=== PATIENT | male | born 1945 | race Caucasian/White ===

== ENCOUNTER 2018-12-10 10:16 | Outpatient (REF) | payer MEDICARE, OTHER, SELFPAY ==
[2018-12-10 13:36] LABS: Anion Gap 8.2 mmol/L (3-11); BUN 14 mg/dL (7-18); CO2 29.8 mmol/L (21.0-32.0); CREATININE 1.03 mg/dL (0.70-1.30); Calcium 9.2 mg/dL (8.5-10.1); Chloride 103 mmol/L (98-107); Glucose 123 mg/dL (70-100); Potassium 4.4 mmol/L (3.5-5.1); Sodium 141 mmol/L (136-145)
== END 2018-12-10 10:36 ==
LOC: NCHCN 10:16
PROVIDERS: PCP Internal Medicine; Visit Provider Internal Medicine
DX: I10 Essential (primary) hypertension (principal)
CPT/HCPCS: 80048

== ENCOUNTER 2020-02-08 10:42 | Outpatient (REF) | payer MEDICARE, OTHER, SELFPAY ==
[2020-02-08 21:14] LABS: BUN 14 mg/dL (7-18); CREATININE 0.92 mg/dL (0.70-1.30); Calcium 9.4 mg/dL (8.5-10.1); Calculated LDL 170 mg/dL (<100); Chloride 105 mmol/L (98-107); Cholesterol 246 mg/dL (<200); Glucose 120 mg/dL (74-106); HDL Cholesterol 54 mg/dL (40-60); Potassium 3.9 mmol/L (3.5-5.1); Sodium 142 mmol/L (136-145); Triglyceride 111 mg/dL (<150)
[2020-02-08 21:20] LABS: Hemoglobin A1C 5.7 % (3.8-5.6)
== END 2020-02-08 11:02 ==
LOC: NCHCN 10:42
PROVIDERS: PCP Internal Medicine; Visit Provider Internal Medicine
DX: I10 Essential (primary) hypertension (principal); E78.5 Hyperlipidemia, unspecified; R73.9 Hyperglycemia, unspecified
CPT/HCPCS: 80048; 80061; 83036

== ENCOUNTER → 2020-06-13 08:53 | Outpatient (BNVA) | payer MEDICARE, OTHER, SELFPAY | PROVIDERS: PCP Internal Medicine; Referring Provider Internal Medicine; Visit Provider Surgery | DX: Z12.11 Encounter for screening for malignant neoplasm of colon (principal); Z86.010 Personal history of colon polyps ==

== ENCOUNTER 2020-06-22 02:20 | Outpatient (CLI) | payer MEDICARE, OTHER, SELFPAY ==
[2020-06-23 14:49] LABS: COVID-19 RT-PCR UVMMC Result Negative (Negative)
== END 2020-06-22 02:40 ==
PROVIDERS: PCP Internal Medicine; Visit Provider Surgery
DX: Z11.59 Encounter for screening for other viral diseases (principal); Z01.818 Encounter for other preprocedural examination
CPT/HCPCS: U0003

== ENCOUNTER 2020-06-26 09:06 | Day surgery (SDC) | payer MEDICARE, OTHER, SELFPAY ==
--- NOTE | 2020-06-26 07:04 | W.COLOREPORT ---
Date of service: 06/26/20 Time of Service: 10: Colonoscopy Report Date of procedure: 06/26/20 Pre-op diagnosis general: Hx of polyps Post-op diagnosis procedure note: same (polyps and kern-diverticulosis and internal hemorrhoids) Procedure: Colonoscopy with polypectomy by forceps Surgeon: Samanta Aguilar Anesthesia proc note operative: other (General/ASA 3/Kyler Garza CRNA) Estimated blood loss (mL): 5 Pathology: other (cecal polyp, ascending polyp, transverse polyps x2, descending polyp) Complications: None Disposition: same day Indications: Mr. iSerra is here today to discuss another colonoscopy. His last colonoscopy was in 2017 and he had multiple tubular adenomas and hyperplastic polyps. He has not had any changes in his health. He has done very well since after his valve replacement in 2016. He denies any changes in bowel habits. He has not had any chest pain or shortness of breath. The colonoscopy was described in detail as well as the risks benefits and complications. We also discussed Covid testing prior to the procedure and quarantine requirements. Prep: Miralax/Dulcolax Procedure Start Time: :20 Procedure End Time: 10:45 Retraction Time: 24 minutes Findings: multiple sessile polyps and kern-diverticulosis. R>L Procedure Description: After informed consent was obtained the patient was taken to the procedure room and placed in a left decubitous position. Monitors were applied and a time out was done. The patients name, date of , procedure, allergies to medications and metal in their body was reviewed. The patient was then sedated. Once sedated and comfortable a rectal exam was done. External exam was normal. Internal exam revealed a normal sphincter tone and no palpable masses. The prostate felt smooth. Also noted was a large skin tag on the posterior portion of his right thigh. The scope was then introduced and retro-flexed. Grade 2 internal hemorrhoids were identified. The scope was then advanced to the cecum without difficulty. The ileocecal valve and appendiceal orifice were identified. The prep was adequate. The scope was then slowly retracted over 24 minutes back into the rectum. Polyps were removed with cold forceps in the cecum, ascending colon, transverse colon x2, and descending colon. There was also kern-diverticulosis noted worse on the right side. The scope was removed and the patient was woken up and taken back to Same day surgery in stable condition. The patient tolerated the procedure well and there were no immediate complications. Follow up: The patient should follow up in 3-5 years unless they develop changes in bowel habits or other new gastrointestinal complaints.
--- NOTE | 2020-06-26 07:05 | PDOC.DSDIS_ITS ---
Discharge Plan Disposition Patient Disposition: HOME Condition: Good Discharge Details Reason For Visit: Colonoscopy Attending Provider: Samanta Aguilar Primary Care Provider: Juan C Lee Home Meds and New Rx's Prescriptions: Continued docusate sodium 50 mg capsule 50 mg PO DAILY RF: 0 metoprolol tartrate 50 MG tablet 50 mg PO BID RF: 0 aspirin [Aspirin Low-Strength] 81 MG tablet,chewable 81 mg PO DAILY RF: 0 ibuprofen 100 MG/5 ML suspension 400 mg PO Q6H PRN RF: 0 [id number] serr [Osteo Bi-Flex (5-Loxin)] 1 EACH tablet 1 ea PO DAILY RF: 0 atorvastatin 20 mg tablet 20 mg PO DAILY RF: 0 Discontinued bisacodyl [Dulcolax (bisacodyl)] 5 mg tablet,delayed release (DR/EC) 5 mg PO ONCE Qty: 4 RF: 0 polyethylene glycol 3350 17 gram powder in packet 255 g PO DAILY Qty: 15 RF: 0 Discharge Instructions Instructions: Colorectal Polyps (DC), Diverticulosis (DC) Additional Instructions: Findings: 5 polyps Diverticulosis Follow up: 3-5 years Please call if you develop: fevers >101.5 Nausea or Vomiting Abdominal pain that is not transient DAY SURGERY UNIT POST ENDOSCOPY INSTRUCTIONS 1. Because there will be medication in your system for the next 24 hours, you may feel a little sleepy. Your coordination will be affected. Therefore: a. Do not drive or operate dangerous equipment for 24 hours. b. Do not drink alcohol beverages for 24 hours (not even beer). c. Plan to go home and rest for the day. 2. Generally there are no restrictions on your activity after a day or so has gone by, but you may feel a bit fatigued for a few days. 3 After you arrive home you may have a light meal and return to a normal diet as you can tolerate it without feeling sick to your stomach. 4. After surgery, you may feel pain or discomfort. This should be only tra nsient, but if it persists please contact your doctor. 5. If there are any questions regarding the findings of your procedure, please feel free to contact your doctor. 6. If you are unable to contact your doctor with a problem, contact the hospital at [phone]. 7. Continue all your regular medications unless directed otherwise. I understand the above instructions and have no questions. Signature of Patient or Responsible Adult Escort Date/Time Name of Responsible Adult Escort Signature of Nurse Date/Time Activity:: Activity as Tolerated Diet:: high fiber diet Discharge Orders Discharge Orders: Discharge Order (Routine); Ordered 06/26/20 Ordered By: Samanta Aguilar
[2020-06-26 09:28] VITALS: BP 138/89; PULSE 108; RESP 16; TEMP 36.4; O2SAT 98
[2020-06-26] MEDS: Lactated Ringers 1,000 ML 80 ML IV (09:47)
--- NOTE | 2020-06-26 10:26 | BOWEL_PTH ---
PATIENT: Jorge Luis Sierra LOC: [facility] U#:[id number] AGE/SX: 74/M ROOM: RE06/26/[address]: Samanta Aguilar MD : [id number] BED: DIS: 06/26/2020 SPEC #: [id number] RECD: 06/26/20 12:55 STATUS: KARLA REQ #: [id number] SUMAN: 06/26/20 10:[address]: Samanta Aguilar DEPT: Surgical Specimen RECD BY: Jenna Mcclain ENTERED: 06/26/20 12:56 SP TYPE: Bowel OTHR DR: Juan C Lee Tissues: 1 - BIOPSY BOWEL 2 - BIOPSY BOWEL 3 - BIOPSY BOWEL 4 - BIOPSY BOWEL Procedures: GROSS AND MICRO LEVEL 4 Comments: [id number]
[2020-06-26] MEDS: Ondansetron 4 MG/2 ML VIAL IVP (11:08)
[2020-06-26] MEDS: Normal Saline Flush 10 ML SYR IV (11:09)
[2020-06-26 11:46] VITALS: BP 138/78; PULSE 93; RESP 16; TEMP 36.9; O2SAT 94
== END 2020-06-26 12:06 | disposition home or self-care (01) ==
LOC: SUR 09:07
PROVIDERS: PCP Internal Medicine; Visit Provider Surgery
PROC: 0DJD8ZZ Inspection of Lower Intestinal Tract, Via Natural or Artificial Opening Endoscopic (ICD-10-PCS; CPT 45378; principal; 2020-06-26 10:30)
DX: Z12.11 Encounter for screening for malignant neoplasm of colon (principal); Z86.010 Personal history of colon polyps; D12.0 Benign neoplasm of cecum; D12.2 Benign neoplasm of ascending colon; D12.3 Benign neoplasm of transverse colon; K63.89 Other specified diseases of intestine; K57.30 Diverticulosis of large intestine without perforation or abscess without bleeding; K64.1 Second degree hemorrhoids; Z87.19 Personal history of other diseases of the digestive system; I10 Essential (primary) hypertension
CPT/HCPCS: 45380; 88305; J2001; J2405

== ENCOUNTER 2021-06-12 09:14 | Outpatient (REF) | payer MEDICARE, OTHER, SELFPAY ==
[2021-06-12 14:47] LABS: HCT 46.2 % (40.0-50.0); HGB 15.5 g/dL (13.5-17.5); MCHC 33.5 % (32.0-36.0); MCV 98.5 fL (80-95); MPV 9.8 fL (8.0-11.0); Platelet Count 175 10^3/uL (130-400); RBC 4.69 10^6/uL (4.36-5.78); RDW 11.6 % (11.8-14.1); RDW-SD 41.9 fL; WBC 4.72 10^3/uL (4.4-10.8)
[2021-06-12 15:08] LABS: ALT 46 U/L (16-63); AST 40 U/L (15-37); Alkaline Phosphatase 45 U/L (46-116); Anion Gap 10.2 mmol/L (3-11); BUN 12 mg/dL (7-18); Bilirubin, Total 0.8 mg/dL (0.2-1.0); CO2 28.8 mmol/L (21.0-32.0); CREATININE 0.8 mg/dL (0.70-1.30); Calcium 9.3 mg/dL (8.5-10.1); Calculated LDL 143 mg/dL (<100); Chloride 104 mmol/L (98-107); Cholesterol 230 mg/dL (<200); Glucose 107 mg/dL (74-106); HDL Cholesterol 71 mg/dL (40-60); Potassium 4.4 mmol/L (3.5-5.1); Sodium 143 mmol/L (136-145); TSH (W/Ref FT4) 0.55 uIU/mL (0.36-3.74); Total Protein 7.2 g/dL (6.4-8.2); Triglyceride 83 mg/dL (<150)
== END 2021-06-12 09:15 | disposition home or self-care (01) ==
LOC: NCHCN 09:14
PROVIDERS: PCP Internal Medicine; Visit Provider Family Medicine
DX: I10 Essential (primary) hypertension (principal); R73.03 Prediabetes; Z00.00 Encounter for general adult medical examination without abnormal findings
CPT/HCPCS: 80053; 80061; 85027; 84443

== ENCOUNTER 2021-12-16 09:15 | Emergency (ER) | payer MEDICARE, OTHER, SELFPAY ==
[2021-12-16 09:14] VITALS: BP 156/88; PULSE 94; RESP 16; TEMP 36.7; O2SAT 98
--- NOTE | 2021-12-16 09:30 | DI.CT_ITS ---
Exam(s) CT HEAD WO EXAM: CT HEAD WO CLINICAL HISTORY: fall injury to right forehead. TECHNIQUE: Imaging Protocol: Axial computed tomography images with coronal and sagittal reformatted images were created and reviewed COMPARISON: No exams were available for comparison FINDINGS: Ventricles and Extra axial spaces: Normal in size and morphology for the patient's age. Hemorrhage: None. 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 Old infarct right frontal and parietal regions. No acute infarcts. Atrophy. White matter changes consistent with small vessel disease. Midline shift: None. Brainstem/Cerebellum: Normal. Calvarium: Normal. Visualized Paranasal sinuses/Mastoids: Clear. IMPRESSION: Old infarcts. No acute abnormality. RADIATION DOSE DELIVERED: 754.69mGy.cm Total DLP 754.69mGy.cm Total DLP DATA REPOSITORY: All CT scans at this facility are submitted to the National Radiology Data Registry (NRDR) Dose Index Registry (DIR) with the [employer] (ACR). RADIATION OPTIMIZATION: All CT scans at this facility use at least one of these dose optimization te chniques: automated exposure control; mA and/or kV adjustment per patient size (includes targeted exa ms where dose is matched to clinical indication); or iterative reconstruction.
--- NOTE | 2021-12-16 09:30 | DI.RAD_ITS ---
Exam(s) XR KNEE RT 4V AP,LAT,BRICE,PAT EXAM: XR KNEE RT 4V AP,LAT,BRICE,PAT CLINICAL HISTORY: fall. TECHNIQUE: 2D digital imaging was performed. Three views. COMPARISON: No exams were available for comparison FINDINGS: BONES: Acute fracture extending mainly transversely through the patella. There is separation of fra cture fragments extending to the articular surface. No bony destructive lesion is seen. JOINTS: Degenerative changes and chondrocalcinosis peer the knee is normally aligned. No joint effusi on is seen. SOFT TISSUE: Marked anterior soft tissue swelling. Joint effusion. Vascular calcifications. IMPRESSION: Acute patellar fracture with comminution and separation of fragments. DATA REPOSITORY: RADIATION DOSE DELIVERED:
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
--- NOTE | 2021-12-16 10:49 | DI.VRAD_ITS ---
PROCEDURE INFORMATION: Exam: XR Left Knee Exam date and time: 12/16/2021 10:20 AM Age: 76 years old Clinical indication: Injury or trauma; Fall; Fracture, traumatic; Closed fracture; Patella or knee; Right TECHNIQUE: Imaging protocol: XR Left knee. Views: 4 or more views. COMPARISON: No relevant images were readily available for comparison purposes. FINDINGS: Bones/joints: At least mild CPPD at the knee. comminuted acute and moderately displaced/distracted patellar fracture. at least small suprapatellar effusion. Soft tissues: soft tissue swelling. Vasculature: vascular calcifications. IMPRESSION: Acute patellar fracture. Dictated and Authenticated by: Juan C Young MD. Ordering:JAVIER Ambrose MD
--- NOTE | 2021-12-16 11:18 | DI.VRAD_ITS ---
PROCEDURE INFORMATION: Exam: CT Head Without Contrast Exam date and time: 12/16/2021 10:54 AM Age: 76 years old Clinical indication: Injury or trauma; Fall; Blunt trauma (contusions or hematomas) TECHNIQUE: Imaging protocol: Computed tomography of the head without contrast. COMPARISON: No relevant images were readily available for comparison purposes. FINDINGS: Brain: Right hemispheric encephalomalacia. Moderate cerebral volume loss. moderate burden nonspecific white matter disease likely least partly related to chronic microvascular risk factors. No acute intracranial hemorrhage. No convincing evidence of acute infarct. Cerebral ventricles: ventricular expansion likely related to cerebral volume loss. Paranasal sinuses: Paranasal sinuses appear clear. Mastoid air cells: mastoid air cells clear. Orbital cavities: Globes and orbits appear intact. Bones/joints: No acute skull fracture Soft tissues: scalp hematoma right frontal convexity. IMPRESSION: No acute intracranial findings. Small scalp hematoma right frontal convexity. Dictated and Authenticated by: Juan C Young MD. Ordering:JAVIER Ambrose MD
[2021-12-16 11:33] VITALS: BP 150/60; PULSE 80; TEMP 36.4; O2SAT 95
--- NOTE | 2021-12-16 11:45 | DI.CT_ITS ---
Exam(s) CT LOWER EXTREMITY RT WO EXAM: CT LOWER EXTREMITY RT WO CLINICAL HISTORY: Further evaluation of patellar fracture. TECHNIQUE: Imaging Protocol: Axial computed tomography images with coronal and sagittal reformatted images were created and reviewed. CONTRAST MATERIAL: Intravenous: Omnipaque 350 Contrast volume:structured data in ml Contrast route:IV - COMPARISON: CR,XR XR KNEE RT 4V AP,LAT,BRICE,PAT from 12/16/2021 FINDINGS: There is a comminuted fracture of the patella with main transverse component through the midportion o f the patella and an oblique vertically oriented component through the lower pole. Separation of fra cture fragments greatest 9-10 millimeters. There is a large joint effusion. There is a tiny intra-a rticular bony fragment near the superior pole of the patella. Enthesophytes are noted at the quadric eps insertion. There there is an enthesophyte at the tibial tubercle. The distal femur proximal tib ia and fibula show no evidence of fracture. There is chondral calcinosis as well as vascular calcifi cations. There is marked anterior soft tissue swelling... IMPRESSION: Comminuted patellar fracture. RADIATION DOSE DELIVERED: 266.26mGy.cm Total DLP DATA REPOSITORY: All CT scans at this facility are submitted to the National Radiology Data Registry (NRDR) Dose Index Registry (DIR) with the [employer] (ACR). RADIATION OPTIMIZATION: All CT scans at this facility use at least one of these dose optimization te chniques: automated exposure control; mA and/or kV adjustment per patient size (includes targeted exa ms where dose is matched to clinical indication); or iterative reconstruction.
[2021-12-16] MEDS: oxyCODONE 5 MG TAB PO (12:02)
[2021-12-16] MEDS: Ketorolac 15 MG/ML VIAL IM (12:05)
--- NOTE | 2021-12-16 12:52 | DI.VRAD_ITS ---
PROCEDURE INFORMATION: Exam: CT Right Lower Extremity Without Contrast, Knee Exam date and time: 12/16/2021 12:20 PM Age: 76 years old Clinical indication: Other: Further evaluation of patellar fracture TECHNIQUE: Imaging protocol: CT of the Right lower extremity without contrast was performed. Exam focused on the knee. Radiation optimization: All CT scans at this facility use at least one of these dose optimization techniques: automated exposure control; mA and/or kV adjustment per patient size (includes targeted exams where dose is matched to clinical indication); or iterative reconstruction. COMPARISON: CR XR KNEE RT 4V AP,LAT,BRICE,PAT 12/16/2021 10:20 AM FINDINGS: Bones/joints: Comminuted, acute, and mild to moderately displaced/distracted fracture of the patella. there is a small suspected intra-articular bony fragment. Image 36 series 5. Moderate suprapatellar effusion. Tiny foci of intra-articular gas likely traumatic in origin. Soft tissues: Soft tissue swelling about the knee. Vasculature: vascular calcifications. IMPRESSION: Acute patellar fracture. Dictated and Authenticated by: Juan C Young MD. Ordering:JAVIER Ambrose MD
[2021-12-16 13:14] VITALS: BP 154/73; PULSE 99; RESP 16; TEMP 36.7; O2SAT 96
== END 2021-12-16 13:18 | disposition home or self-care (01) ==
PROVIDERS: Emergency Provider Nurse Practitioner Family; PCP Internal Medicine
DX: S82.091A Other fracture of right patella, initial encounter for closed fracture (principal); S00.81XA Abrasion of other part of head, initial encounter; W01.0XXA Fall on same level from slipping, tripping and stumbling without subsequent striking against object, initial encounter
CPT/HCPCS: 29505; 96372; 99285; 70450; 73564; 73700; 99284; J1885

== ENCOUNTER 2021-12-18 14:16 | Observation (INO) | payer MEDICARE, OTHER, SELFPAY ==
[2021-12-18] VITALS (10 sets, daily range): BP systolic 93–152; BP diastolic 42–66; PULSE 76–97; RESP 16–22; TEMP 36.6–37.2; O2SAT 94–98; BMI 24.0
--- NOTE | 2021-12-18 10:17 | W.ANESPRE ---
General Info Date of Service Date Performed: 12/18/21 Height: 5 ft 10 in Weight: 76.204 kg Body Mass Index (BMI): 24.0 Surgical Procedure: Operation Date: 12/18/21 16:40 Proposed Procedure Side Surgeon p Knee ORIF Patella Right London Rose MD Meds Allergies and Home Medications Allergies Allergy/AdvReac Type Severity Reaction Status Date / Time No Known Allergies Allergy Unverified 12/18/21 12:10 Home Medication Medication Instructions Recorded metoprolol tartrate 50 mg tablet 50 mg PO BID 01/13/15 ibuprofen 100 mg/5 mL oral 400 mg PO Q6H PRN 01/16/15 suspension atorvastatin 20 mg tablet 40 mg PO DAILY 05/03/20 multivitamin 1 cap PO DAILY 12/16/21 Current Visit Medications: Current Medications Generic Name Dose Route Start Last Admin Trade Name Freq PRN Reason Stop Dose Admin Acetaminophen 1,000 mg 12/18/21 06:00 Acetaminophen 500 Mg Tab PO 12/18/21 16:00 PREOP MEHNAZ Celecoxib 400 mg 12/18/21 06:00 Celecoxib 200 Mg Cap PO 12/18/21 16:00 PREOP MEHNAZ Gabapentin 300 mg 12/18/21 06:00 Gabapentin 300 Mg Cap PO 12/18/21 16:00 PREOP MEHNAZ Tranexamic Acid 1,000 mg/ 60 mls @ 360 mls/hr 12/18/21 06:00 Sodium Chloride IVPB 12/18/21 16:00 PREOP MEHNAZ Ringer's Solution 1,000 mls @ 80 mls/hr 12/18/21 06:00 IV 01/16/22 23:59 INFUSION MEHNAZ Cefazolin Sodium/Dextrose 2 gm in 50 mls @ 100 mls/hr 12/18/21 06:00 Ancef Duplex IVPB 12/18/21 16:00 PREOP MEHNAZ IV Miscellaneous Supplies 1 each 12/18/21 06:00 Iv Access IV 01/16/22 23:59 DIRECTED MEHNAZ Sodium Chloride 0 ml 12/18/21 06:00 Normal Saline Flush 10 Ml Syr IV 01/16/22 23:59 PRN PRN Sodium Chloride 0 ml 12/18/21 06:00 Normal Saline 10 Ml Vial IJ 01/16/22 23:59 DIRECTED PRN Sterile Water 0 ml 12/18/21 06:00 Water,Injection,Sterile 10 Ml Vial IJ 01/16/22 23:59 DIRECTED PRN PFSH Active Problems Active Problems: Problem Status Onset Code Comminuted fracture of right patella S82.041A Encounter for colonoscopy due to history of adenomatous colonic polyps Z12.11, Z86.010 Abrasion T14.8XXA Medical History Medical History Adenomatous colon polyp Hyperlipidemia Hypertension Medical History Comments:: Pt DPOA states his sister set up home health to come care for his post-operatively Surgical History Surgical History Appendectomy Colonoscopy - MAC (07/29/16) S/P balloon mitral valvuloplasty 2013 @ [facility] F/U with PCP anually Sigmoidoscopy (04/22/16) MAC, Attempted colonoscopy Tobacco Smoking/Tobacco Use Status: Former Tobacco Use Alcohol Alcohol Intake: current Alcohol intake frequency: a few times a week Substance Use Substance use: Never Substance use type: does not use Vital Signs and Lab Results Vital Signs Most Recent Vital Signs in EMR: Temp Pulse Resp BP Pulse Ox 36.6 C 97 H 20 125/61 98 12/18/21 12:13 12/18/21 12:13 12/18/21 12:13 12/18/21 12:13 12/18/21 12:13 Lab Results Blood Type / Crossmatch: No Data to Display Complete Blood Count: No Data to Display Complete Metabolic Panel: No Data to Display Liver Function Panel: No Data to Display Coagulation Panel: No Data to Display Cardiac Panel: No Data to Display Arterial Blood Gas: No Data to Display Venous Blood Gas: No Data to Display Pancreas Panel: No Data to Display Thyroid Panel: No Data to Display Infectious Disease: Coronavirus 2019 Source Nasal/Nares 12/18/21 11:50 Blood Cultures: No Data to Display Toxicology Panel: No Data to Display Imaging and Studies Imaging and Studies Study information below may be from another EMR and interpreted by another provider. Please see original notes in EMR for more complete details. Echocardiogram Summary: 2016: LVEF 60-65%, no WMA, s/p annuloplasty ring mitral. moderate TR/VA. Carotid Artery Summary:: 10/2013: 1-49% bilateral stenosis. Anesthesia Assessment and Plan Anesthesia History Personal History: No History of Anesthesia Complications Family History: No Family History of Anesthesia Complications Exercise Tolerance Exercise Tolerance: Metabolic Equivalents>4 Cardiac & Pulmonary Exam Cardiac Exam: Normal S1/S2 Heart Sounds Pulmonary Exam: Clear Bilateral Breath Sounds Implantable Cardiac Device Does patient have a Pacemaker or an ICD?: No Airway Exam Known Difficult Airway: No Mallampati Class: 3 Mouth Opening: Narrow (< 3cm) Thyromental Distance: Greater than 3 cm Neck Range of Motion: Full ROM and Limited ROM Neck Circumference: Normal Teeth Condition: Edentulous ASA Classification ASA Score: ASA 3 Emergency Case?: No NPO Status NPO Status: NPO Clears >2 hours, Solids >8 hours Anesthesia Plan Resuscitation Status: Full Code Anesthesia Technique: General Anesthesia Airway Planned: LMA Monitors Used: Standard Monitors Preoperative Comments:: 76 yo male for patellar ORIF. Sig PMHx: HTN, s/p balloon MV valvuloplasty 2013, former smoker, Previous Anes: Mac 4 grade 1 Discussed risks and benefits of spinal vs GA. pt would like GA.
--- NOTE | 2021-12-18 11:45 | DI.RAD_ITS ---
Exam(s) XR KNEE RT 2V AP,LAT EXAM: XR KNEE RT 2V AP,LAT CLINICAL HISTORY: Right patella fracture. TECHNIQUE: 2D digital imaging was performed. COMPARISON: No exams were available for comparison FINDINGS: Fluoroscopy was provided during reduction internal fixation of patellar fracture. See procedure repo rt for details Total fluoroscopy time 33 seconds. Cumulative dose= 3.4 0 6mGy IMPRESSION: DATA REPOSITORY: RADIATION DOSE DELIVERED:
[2021-12-18 12:00] LABS: Source Nasal/Nares
[2021-12-18] MEDS: Lactated Ringers 1,000 ML 80 ML IV (12:38)
[2021-12-18] MEDS: Celecoxib 200 MG CAP 400 MG PO (12:44)
[2021-12-18] MEDS: Gabapentin 300 MG CAP PO (12:44)
[2021-12-18] MEDS: Acetaminophen 500 MG TAB 1000 MG PO (12:44)
[2021-12-18 12:53] LABS: COVID-19 PCR Negative (Negative)
--- NOTE | 2021-12-18 13:45 | W.PREOPHP ---
Assessment and Plan Assessment and plan (1) Comminuted fracture of right patella: Status: Acute Assessment and plan: Jorge Luis is a 76-year-old who suffered a fall onto the right knee and a comminuted, displaced fracture. Given the unstable nature of this fracture and his inability to bear weight I recommend operative fixation. I discussed this with him and his sister, KJ. I reviewed the risk of the procedure to include bleeding, infection, pain, stiffness, hardware prominence, hardware failure, malunion, nonunion, damage to nerves and vessels, need for repeat procedures. Despite these risk, he elects to proceed. All his questions were answered. He will be weightbearing as tolerated with a long knee immobilizer afterwards. History of Present Illness Narrative: Jorge Luis is a 76-year-old who suffered a mechanical fall on December 15. He landed on his right knee. He also hit his right forehead. He was able to get up initially. He is able to ambulate although with some pain. However, when he woke up on the morning of December 16, he was unable to bear weight. He was seen in the emergency department and diagnosed with a comminuted and displaced patella fracture. He was sent home with a knee immobilizer. He has been able to mobilize although minimally. He has difficulty with getting up and out of the chair. He denies any headache. Denies any chest pain or shortness of breath. He denies any COVID-19 contacts. He did report a previous history of a chainsaw injury to the skin above the knee on the right side but otherwise no significant premorbid knee pain. Review of Systems All systems reviewed & are unremarkable except as noted in HPI and below PFSH All Active Problems Comminuted fracture of right patella (Acute) Encounter for colonoscopy due to history of adenomatous colonic polyps (Acute) Abrasion (Acute) Medical History Adenomatous colon polyp Hyperlipidemia Hypertension Surgical History Appendectomy Colonoscopy - MAC (07/29/16) S/P balloon mitral valvuloplasty 2013 @ [facility] F/U with PCP anually Sigmoidoscopy (04/22/16) MAC, Attempted colonoscopy Social History Smoking/Tobacco Use Status: Former Tobacco Use Quit Date: 07/07/99 Smoking risk assessment performed?: Yes Alcohol Intake: current Alcohol Intake frequency: 0-2 drinks per day Alcohol type: beer and hard liquor Drug use: Never Substance use type: does not use Household members: spouse current occupation: retired Current gender identity: male Do you feel safe at home: Yes Additional Social history: lives alone Meds Allergies and Home Medications Allergies Allergy/AdvReac Type Severity Reaction Status Date / Time No Known Allergies Allergy Unverified 12/18/21 12:10 Home Medications Medication Instructions Recorded Confirmed Type metoprolol tartrate 50 mg tablet 50 mg PO BID 01/13/15 12/18/21 History ibuprofen 100 mg/5 mL oral 400 mg PO Q6H PRN 01/16/15 12/18/21 History suspension atorvastatin 20 mg tablet 40 mg PO DAILY 05/03/20 12/18/21 History multivitamin 1 cap PO DAILY 12/16/21 12/18/21 History Exam Const General: cooperative, healthy appearing, comfortable and no acute distress Resp Auscultation: clear to auscultation bilaterally Cardio Rate: regular rate Rhythm: regular rhythm Extrem Other: Notable effusion and swelling about the right knee. Some hyperemia about the right knee. Small abrasion which is superficial but healing and not bleeding. Pain to palpation over the patella. Distally sensation is intact to light touch of the deep and superficial peroneal nerve and tibial nerve. Palpable DP and PT pulse. Results Imaging Imaging Studies: X-ray of the right knee shows a comminuted fracture of the patella with distraction of the fracture fragments. There is a notable effusion. No femur or tibia fracture. Significant chondrocalcinosis throughout the right knee. CT scan of the right knee demonstrates a comminuted, intra-articular, and displaced fracture of the patella with 3 primary components with small cracks apparent as well and the larger fragments. One small loose bodies present just superior to the supra pole patella. Labs Labs: Laboratory Results - last 24 hr 12/18/21 11:50 COVID-19 Source Nasal/Nares SARS-CoV-2 (PCR) Negative Last Vital Signs Temp 36.6 C 12/18/21 12:13 Pulse 97 H 12/18/21 12:13 Resp 20 12/18/21 12:13 BP 125/61 12/18/21 12:13 Pulse Ox 98 12/18/21 12:13
--- NOTE | 2021-12-18 14:00 | W.PM.DSUDISC ---
Discharge Plan Disposition Patient Disposition: HOME W/HOME HEALTH SERVICE Condition: Good Discharge Details Reason For Visit: Right Patella Fracture Admit Date/Time: 12/18/21 14:16 Admit Provider: London Rose Attending Provider: London Rose Primary Care Provider: Juan C Lee Hospital Course Hospital Course: Patient was admitted to the medical/surgical floor following the procedure. The surgery was tolerated well without any notable medical, surgical, or anesthetic complications. Mobilization began postoperatively. He was voiding spontaneously. Vitals were stable. Physical therapy worked with the patient and was cleared for discharge home. No acute medical issues. Pain was controlled on oral regimen. Home Meds and New Rx's Prescriptions: New tramadol 50 mg tablet 50 mg PO Q6H PRN (Reason: severe postoperative pain) Qty: 8 0RF Rx Instructions: Take one tablet up to every 4 hours as needed for severe pain acetaminophen 500 mg tablet 500 mg PO Q6H PRN (Reason: pain) Qty: 60 2RF ibuprofen 600 mg tablet 600 mg PO TID PRN (Reason: pain) Qty: 60 0RF aspirin 81 mg tablet,delayed release (DR/EC) 81 mg PO BID Qty: 60 0RF Continued metoprolol tartrate 50 MG tablet 50 mg PO BID atorvastatin 20 mg tablet 40 mg PO DAILY multivitamin Capsule 1 cap PO DAILY Discontinued ibuprofen 100 MG/5 ML suspension 400 mg PO Q6H PRN Discharge Instructions Additional Instructions: Patella ORIF Discharge Instructions Activity: You are WEIGHT BEARING TOLERATED while wearing your knee immobilizer. You should keep the leg elevated as much as possible. You may wiggle your toes and move your hip. Dressings: You should keep your dressing clean and dry. Do NOT get wet or dirty. If you have issues with your immobilizer, please call the office at [phone] or the hospital after hours. Medications: - You should take Tylenol and Ibuprofen around the clock for baseline pain. - You have been prescribed a stronger narcotic for breakthrough pain. - You should take a Baby Aspirin (81mg) twice a day for blood clot prevention. Follow-up: 2 weeks Referrals: London Rose MD [ [facility] STAFF PHYSICIAN] - 12/31/21 2:00 pm Equipment/Supplies: Partial Weight Bearing Crutches Activity:: Elevate Remove Dressings/Wound Care:: Do Not Remove Shower/Bathe:: Cover Activity:: WBAT with Immobilizer Equipment/Supplies:: Walker Diet:: As Tolerated DS: Diagnosis Discharge Diagnosis (1) Comminuted fracture of right patella: Status: Acute
[2021-12-18] MEDS: ceFAZolin 2 GM/50 ML BAG IVPB (14:11)
--- NOTE | 2021-12-18 14:11 | W.ANESNERVE ---
Nerve Block Single Injection Procedure Date and Time Date Performed: 12/18/21 Procedure Start: 14:00 Location Where Procedure Performed Procedure Location: Day Surgery Unit Reason Performed: Postoperative Analgesia Requesting Provider: London Rose Timeout Performed Timeout Performed: Yes Monitoring Used ECG, Blood Pressure and SpO2 Sterility Sterility: Hand Hygiene and Surgical Cap Sedation Given During Procedure Sedation Given (Indicate Dose Given): No Sedation given Patient Mental Status Patient Mental Status: Awake Nerve Block 1st Nerve Block: Laterality: Right Block Type: Adductor Canal Needle / Catheter Used: 100mm SonoPlex II Local Anesthetic Bolus (Indicate Dose Given): Lidocaine used for local infiltration of skin and Bupivacaine 0.375% Dose:: 10 mL Additives (Indicate Dose Given): Precedex Dose:: 40 mcg Ultrasound: Sterile probe cover and gel used Ultrasound Image Saved?: Yes Nerve Stimulator: Not Used Paresthesia: None Procedure Tolerated: No Complications Procedure Outcome: Successful Performed By: Kyler Garza
--- NOTE | 2021-12-18 16:33 | W.ANESPOSTOP ---
Postoperative Evaluation Date, Time and Location Date Performed: 12/18/21 Time Performed: 16:33 Patient Location: PACU Vital Signs Most Recent Imported Vital Signs: Most Recent Vital Signs Temp Pulse Resp BP Pulse Ox 37.2 C 79 21 93/53 L 94 12/18/21 16:22 12/18/21 16:22 12/18/21 16:22 12/18/21 16:22 12/18/21 16:22 Pain Score Most Recent Pain Score: Most Recent Pain Score Pain Level 0 12/18/21 16:22 Assessment Mental Status: Awake (Alert & Oriented to Patient Baseline) Airway and Respiratory Function: Patent airway with normal (patient baseline) respiratory exam Cardiovascular Function: Hemodynamically Stable Hydration Status: Adequately Hydrated Nausea & Vomiting: No Nausea or Vomiting Pain: Pain is tolerable per patient Peripheral Nerve Block: Regional nerve block not resolved at time of post operative discharge
[2021-12-18] MEDS: ceFAZolin 1 GM/50 ML BAG IVPB (17:43)
--- NOTE | 2021-12-18 21:52 | ROE_ITS ---
Date of service: 12/18/21 Time of Service: 16:15 Operative Note Operative Note DATE OF PROCEDURE: 12/18/21 PRE-OP DIAGNOSIS: Comminuted fracture of the right patella PROCEDURE: Open reduction and internal fixation of right patella SURGEON: London Rose BRICKLAYER HELPER: Isis Burnette ANESTHESIA TYPE: General LMA/ETT Refer to Anesthesia Record ESTIMATED BLOOD LOSS: 50 TOURNIQUET TIME: 0 COMPLICATIONS: None Implants: Synthes variable angle standard patella plate, 3-hole Indications: Jorge Luis is a 76-year-old who suffered a fall onto his right knee. Unfortunately, this caused a comminuted and displaced fracture about the right patella. Given his inability to ambulate, the displaced nature of the fracture, I recommended operative fixation. I discussed the risk of the procedure to include bleeding, infection, pain, stiffness, damage to nerves and vessels, damage to muscles and tendons, malunion, nonunion, hardware prominence, hardware failure, advancing arthritis, blood clot, need for repeat procedures. Despite these risks, he elected to proceed. This is also reviewed with his sister, power of litigation attorney, who also agreed. Findings: There was a displaced fracture of the patella. There is 3 main fracture component with significant soft tissue attachments between them. The 2 primary components were distracted but the secondary components were still well attached with surrounding soft tissue both dorsally and peripherally. Therefore, I did not disrupt this soft tissue component and treated him as 1 unit. I secured the fracture with a variable angle Synthes plate. Procedure Description: Jorge Luis was greeted in the preoperative holding area where the correct side was identified and marked. The consent was reviewed with the patient and signed. The history and physical was updated. All questions were answered. An adductor canal block was then administered by the anesthesia team in the PACU. Jorge Luis was taken back to the operating room. A general anesthestic was administered. The patient was placed into the supine position on the operating room table. A bone foam ramp was placed under the knee. All bony prominences were well padded. Prophylactic antibiotics in the form of Cefazolin were administered. The right leg was then prepped with Chloraprep and draped in a standard fashion with impervious stockinette. A second prep with Chloraprep was performed prior to application of Iodine impregnated skin protection. A timeout to confirm correct identity, side and site, procedure, allergies, anesthesia, and medical concerns was performed. With the knee in some flexion, a midline incision was made overlying the osuna lla. Full thickness skin flaps were raised once the extensor mechanism was encountered. These were raised medially and laterally. There is an obvious defect within the central portion patella with old blood oozing through. With gentle, blunt dissection I was able to disrupt this early healing with an expression of blood and joint fluid. The main fracture line running from distal lateral to proximal medial was distracted exposing the distal femur. There was one loose piece of bone which was removed. Thorough irrigation was performed of the joint and of the fracture edges debriding any fi brous tissue and early healing. The fracture line between the distal half of the patella was palpable however, it was not very mobile. There is substantial amount of soft tissue attached peripherally as well as dorsally. Instead of taking this down I left the attachments as is. I attempted manipulation of the fracture fragments while leaving these pieces attached with soft tissue. I then reduced the 2 main components back to each other and secured them with a K wire and a clamp. Overall alignment appear to be nearly anatomic except for some very small step-off over 1 portion. I assume this was some irregularity of one of the smaller fracture pieces. However, the step-off is less than 2 mm and overall had the normal appearance of the patella which I thought was acceptable rather than taking down the soft tissue attachments of the smaller fragments. With this being held in position I then templated for a variable angle patella plate. This plate was contoured based on the template. The standard 3-hole Synthes patella plate was held on the dorsum of the patella and was continued to be contoured until screw positions were appropriate and the plate was against the bone. I then held the plate in position with a threaded olive K wire. I then placed a cortical screw from distal to proximal. This had excellent compression. I then placed locking screws in each of the fracture components. Fluoroscopy was utilized to ensure appropriate positioning of the screws, without penetrating to the cartilaginous surface of the patella. I then used a fiber tape to create a pursestring type reinforcement of the patella fracture utilizing the plate edges to anchor the suture in position as well. This was tied and the knot was buried. The wound was thoroughly irrigated with Surgiphor Betadine solution, allowed to sit for 3 minutes, and then washed out with saline. The skin, soft tissues, and deeper tissues were injected with a 50cc mixture of the CHIVO injection. Deep tissues were reapproximated with 0 and a 2-0 Vicryl. The skin was closed with a running 3-0 Monocryl in a subcuticular fashion. This was reinforced with skin glue. A Mepilex silver dressing was applied along with a [id number] MOLLY wrap. Jorge Luis was transferred to the hospital stretcher without difficulty an suffering no apparent complication. Jorge Luis has a good prognosis. Aspirin 81mg BID will be used for DVT prophylaxis. He will be weightbearing as tolerated with the knee in the knee immobilizer.
[2021-12-19] MEDS: ceFAZolin 1 GM/50 ML BAG IVPB ×2 (02:13→09:39)
[2021-12-19 03:04] VITALS: BP 125/65; PULSE 76; RESP 18; TEMP 36.7; O2SAT 96
[2021-12-19 07:27] VITALS: BP 131/70; PULSE 76; RESP 17; TEMP 36.5; O2SAT 96
--- NOTE | 2021-12-19 09:01 | W.PM.DS.N ---
Date of service: 12/19/21 Time of Service: 07:40 DS: Diagnosis Discharge Diagnosis (1) Comminuted fracture of right patella: Status: Acute Discharge Plan Disposition Patient Disposition: HOME W/HOME HEALTH SERVICE Condition: Good Discharge Details Reason For Visit: Right Patella Fracture Admit Date/Time: 12/18/21 14:16 Admit Provider: London Rose Attending Provider: London Rose Primary Care Provider: Juan C Lee Hospital Course Hospital Course: Patient was admitted to the medical/surgical floor following the procedure. The surgery was tolerated well without any notable medical, surgical, or anesthetic complications. Mobilization began postoperatively. He was voiding spontaneously. Vitals were stable. Physical therapy worked with the patient and was cleared for discharge home. No acute medical issues. Pain was controlled on oral regimen. Home Meds and New Rx's Prescriptions: New tramadol 50 mg tablet 50 mg PO Q6H PRN (Reason: severe postoperative pain) Qty: 8 0RF Rx Instructions: Take one tablet up to every 4 hours as needed for severe pain acetaminophen 500 mg tablet 500 mg PO Q6H PRN (Reason: pain) Qty: 60 2RF ibuprofen 600 mg tablet 600 mg PO TID PRN (Reason: pain) Qty: 60 0RF aspirin 81 mg tablet,delayed release (DR/EC) 81 mg PO BID Qty: 60 0RF Continued metoprolol tartrate 50 MG tablet 50 mg PO BID atorvastatin 20 mg tablet 40 mg PO DAILY multivitamin Capsule 1 cap PO DAILY Discontinued ibuprofen 100 MG/5 ML suspension 400 mg PO Q6H PRN Discharge Instructions Additional Instructions: Patella ORIF Discharge Instructions Activity: You are WEIGHT BEARING TOLERATED while wearing your knee immobilizer. You should keep the leg elevated as much as possible. You may wiggle your toes and move your hip. Dressings: You should keep your dressing clean and dry. Do NOT get wet or dirty. If you have issues with your immobilizer, please call the office at [phone] or the hospital after hours. Medications: - You should take Tylenol and Ibuprofen around the clock for baseline pain. - You have been prescribed a stronger narcotic for breakthrough pain. - You should take a Baby Aspirin (81mg) twice a day for blood clot prevention. Follow-up: 2 weeks Referrals: London Rose MD [ [facility] STAFF PHYSICIAN] - 12/31/21 2:00 pm Activity:: WBAT with Immobilizer Equipment/Supplies:: Walker Diet:: As Tolerated Discharge Orders Discharge Orders: Discharge Order (Routine); Ordered 12/19/21 Ordered By: London Rose DS: Summary Time Spent with Patient providing and/or coordinating discharge services: Less than 30 minutes Status at Discharge Functional status at discharge: uses cane/walker Overall status at discharge: patient is progressing back to baseline Mental Status: mental status grossly normal Speech and Movement: speech and movement normal Mood: congruent mood Affect: normal affect Exam Narrative Exam Narrative: Sitting up in the bed. NAD. No reported pain. Able to SLR with the knee immobilzier and without pain. +ADF/APF/EHL/FHL. SILT DP/SP/Tib. +DP/PT Psych Mental Status: mental status grossly normal Speech and Movement: speech and movement normal Mood: congruent mood Affect: normal affect DS: Data Vitals/I&O Vitals and I&O: Vital Signs Temperature 36.5 C 12/19/21 07:27 Temperature Source Tympanic 12/19/21 07:27 Pulse 76 12/19/21 07:27 Pulse Rhythm Regular 12/19/21 03:54 Respiratory Rate 17 12/19/21 07:27 Respiratory Effort Non-Labored 12/19/21 03:54 Respiratory Depth Normal 12/19/21 03:54 Respiratory Pattern Normal 12/19/21 03:54 Blood Pressure 131/70 12/19/21 07:27 Blood Pressure Mean 93 12/18/21 13:43 Blood Pressure Position Supine 12/18/21 13:43 Pulse Oximetry 96 12/19/21 07:27 Oxygen Delivery Method Room Air 12/19/21 07:27 Oxygen Flow Rate 0 12/19/21 07:27 Pain Level 0 12/19/21 03:23 Comment 12/18/21 16:46 Intake & Output 12/18/21 12/18/21 12/19/21 11:59 23:59 11:59 Intake Total 737.333 / 737.333 50 / 50 Output Total 500 / 500 Balance 237.333 / 237.333 50 / 50 Weight 76.204 kg 70.9 kg Intake: IV 497.333 / 497.333 50 / 50 Oral 240 / 240 Output: Urine 500 / 500 Other: Urine Color Yellow Urine Appearance Clear Emesis Description None Voiding Methods Urinal Data Completed and Pending Labs on day of discharge: Labs from last 24 hours 12/18/21 11:50 COVID-19 Source Nasal/Nares SARS-CoV-2 (PCR) Negative PFSH All Active Problems Comminuted fracture of right patella (Acute) Encounter for colonoscopy due to history of adenomatous colonic polyps (Acute) Abrasion (Acute) Medical History Adenomatous colon polyp Hyperlipidemia Hypertension Surgical History Appendectomy Colonoscopy - MAC (07/29/16) S/P balloon mitral valvuloplasty 2013 @ [facility] F/U with PCP anually Sigmoidoscopy (04/22/16) MAC, Attempted colonoscopy Social History Smoking/Tobacco Use Status: Former Tobacco Use Quit Date: 07/07/99 Smoking risk assessment performed?: Yes Alcohol Intake: current Alcohol Intake frequency: 0-2 drinks per day Alcohol type: beer and hard liquor Drug use: Never Substance use type: does not use Household members: spouse current occupation: retired Current gender identity: male Do you feel safe at home: Yes Additional Social history: lives alone
[2021-12-19] MEDS: Aspirin E.C. 81 MG TABEC PO (09:38)
[2021-12-19] MEDS: Ketorolac 15 MG/ML VIAL IVP (09:39)
[2021-12-19] MEDS: Atorvastatin 20 MG TAB 40 MG PO (09:39)
[2021-12-19] MEDS: Metoprolol 50 MG TAB PO (09:40)
--- NOTE | 2021-12-19 09:50 | OT.INIE ---
Occupational Therapy Notes Inpatient Occupational Therapy Evaluation Date: 12/19/21 Referring Doctor: Dr. Sheppard OT Orders: Non Urgent Precautions: Fall, standard, full PATIENT PROFILE/ADMITTING DIAGNOSIS: Pt is a 76 year old male who was admitted through the ED for a diagnosis of comminuted fx of (R) patella, abrasion. Past Medical History: All Active Problems? Comminuted fracture of right patella (Acute) Encounter for colonoscopy due to history of adenomatous colonic polyps (Acute) Abrasion (Acute) Medical History? Adenomatous colon polyp Hyperlipidemia Hypertension Surgical History? Appendectomy Colonoscopy - MAC (07/29/16) S/P balloon mitral valvuloplasty 2013 @ [facility] F/U with PCP anuallySigmoidoscopy (04/22/16) MAC, Attempted colonoscopy Social History/Home Situation: Pt states that he lives in a private home and that his daughter helps take care of him. He reports that he lives on a single level home with no stairs. He reports that he has a FWW and cane at home and states that he is able to maneuver throughout his home (I). He does have alicense but his car is currently getting fixed. He reports that he is not sure if he can drive at this time anyways. SUBJECTIVE: Pt states that he is planning to return home today, he states that he thinks he will need HH services and I agree. OBJECTIVE: General Observation: Pleasant and agreeable to session, IV, telemetry Mental Status: A&Ox3 Pain: no c/o pain ROM: RUE AROM WFL L UE AROM WFL STRENGTH: RUE 4/5 throughout LUE 4/5 throughout FUNCTIONAL MOBILITY/ADLS: BATHING NT as pt denies performance at this time. DRESSING Dressing LE seated in chair (I) (L) LE don and doffing sock and max (A) (R) TOILETING NT- pt and OT discuss transfer on and off toilet and use of brace. EATING seated in chair (I) BALANCE: Static sitting Normal Dynamic Sitting Normal SPECIAL TESTS: Daily Activity Limitations Standardized Measure [facility] AM -PAC ?6 clicks? Daily Activity Inpatient Short Form: Raw score: 21 Standardized score: 44.27 CMS score: 32.79% INFORMED CONSENT/EDUCATION: Pt instructed in purpose of OT Consult and plan of care. ASSESSMENT: Patient is a 76-year-old male referred to occupational therapy services with diagnosis of comminuted fx of (R) patella, abrasion. Patient presents with clinical signs and symptoms consistent with dx, as demonstrated by the following impairment level findings/ functional limitations: Impairments in ADL/IADL and leisure activities, decreased functional mobility required for ADL performance, decreased LE dressing and bathing. AMPAC score 21 Patient is assessed as a Moderate 49559 complexity based on the following: History: see above Examination: see functional limitations as noted above Presentation: evolving Decision Making: AMPAC score 21 GOALS N/A seen for OT consult only. PLAN OF CARE/TREATMENT PLAN: Seen for OT consult only. DISCHARGE RECOMMENDATIONS Home with services when medically cleared per MD. OT recommends a shower seat- pt is not receptive to this at this time. Recommendation is based on increasing pts safety with his bathing routines. TREATMENT TIME/MINUTES/CODES 80289, 38046, 20 minutes Stephanie Arana OTR/L [facility]
--- NOTE | 2021-12-19 11:38 | PT.INIE ---
PT Notes Visit Reasons: Right Patella Fracture Inpatient Physical Therapy Evaluation Date: 12/19/2021 Referring Doctor: London Rose MD PT Orders: PT CONSULT: Status post ORIF right patella. Weightbearing with knee immobilizer Precautions: Fall risk Patient Profile/Admitting Diagnosis: 76-year-old male who fell earlier this week on flexed knee resulting in comminuted fracture of his right patella and abrasions to the right forehead. He underwent ORIF of the right patella yesterday. PMHX: All Active Problems? Comminuted fracture of right patella (Acute) Encounter for colonoscopy due to history of adenomatous colonic polyps (Acute) Abrasion (Acute) Medical History? Adenomatous colon polyp Hyperlipidemia Hypertension Surgical History? Appendectomy Colonoscopy - MAC (07/29/16) S/P balloon mitral valvuloplasty 2013 @ [facility] F/U with PCP anuallySigmoidoscopy (04/22/16) MAC, Attempted colonoscopy Social History/Home Situation: Lives alone in a private home, his daughter visits him frequently. His bathroom and bedroom are on the first floor and there is no steps leading into the house. He has a combo shower tub with sliding glass doors, but is uninterested in a shower chair, flexible shower hose etc. Refer to occupational therapy eval Current Functional Limitations: Was independent with all ADLs Equipment Owned/DME: Wheeled walker Subjective: Pleasant, cooperative, complains some mild discomfort throughout the pretibial area with weightbearing. Objective: General Observation: Sitting in chair wearing a knee immobilizer on his right lower extremity when I arrived in his room and anxious to get up and move. Mental Status: Alert and oriented x3 Pain: 1/10 on a VAS Vital Signs: His pulse is 84 bpm following ambulation ROM: He has good functional range of motion throughout the upper extremities and left lower extremity. He is able to actively move his right ankle-foot complex through a functional range of motion without pain. Right hip and knee motion was not evaluated Strength: Strength is generally rated 5/5 throughout Neuro: Intact Bed Mobility/Transfers: Independent with assuming the supine to sitting and standing positions. I instructed him how he can use his left lower extremity to assist the right when getting in and out of bed Gait: Ambulated with a wheeled walker with SBA for over 150 feet. He a ascendedand descended 3 steps with a railing Balance: His static sitting and standing balance within normal limits other than using his walker with his dynamic standing balance Special Tests: Mobility Limitations Standardized Measure [facility] 6 clicks Basic Mobility Inpatient Short Form: Raw Score: 0 standardized Score: CMS Score: 100% Informed Consent/Education: Patient instructed in purpose of PT consult and plan of care. Assessment: Patient is a 76year old male referred to physical therapy services with the diagnosis of comminuted fracture of the right patella status post ORIF. Patient presents with clinical signs and symptoms consistent with diagnosis, as demonstrated by the following impairment level findings: None. Patient is assessed as a Low 25979 complexity based on the following: History: See comorbidities and social history Examination: See above for functional imitations impairments Presentation: Stable Decision Making: Low complexity based on his clinical findings Goals: Goals of independent bed mobility and ambulation with a wheeled walker weightbearing as tolerated have been achieved Plan of Care/Treatment Plan: Today session consisted of the evaluation along with instructing in independent bed mobility, ambulating with a wheeled walker while wearing his knee immobilizer, weightbearing as tolerated as well as stair climbing. DISCHARGE RECOMMENDATIONS: [x] Home with no services TREATMENT CODE/TIME: 9716 145 minutes
--- NOTE | 2021-12-19 16:46 | CHAPLAIN ---
Jorge Luis was up in a chair this morning when I visited. He said he isn't feeling any pain following his surgery. Jorge Luis had a fall at home, and had trouble getting out of bed the next day, so his sister called an ambulance. Jorge Luis said he's learned he should have come to the ED after the fall. Jorge Luis was discharged later in the day.
== END 2021-12-19 11:26 | disposition home health service (06) ==
LOC: MS 16:40
PROVIDERS: Admitting Provider Student in an Organized Health Care Education/Training Program; PCP Internal Medicine; Visit Provider Student in an Organized Health Care Education/Training Program
PROC: (CPT 27524; principal; 2021-12-18 16:30)
DX: S82.041A Displaced comminuted fracture of right patella, initial encounter for closed fracture (principal); Z20.822 Contact with and (suspected) exposure to COVID-19; I10 Essential (primary) hypertension; E78.5 Hyperlipidemia, unspecified; Z87.891 Personal history of nicotine dependence; W19.XXXA Unspecified fall, initial encounter; Z86.010 Personal history of colon polyps; Z79.899 Other long term (current) drug therapy
CPT/HCPCS: 27524; 76942; 87635; 96365; 96366; 96375; 97161; 97166; 97535; 73560; J0690; J1100; J1885; J2370; J2405; J2704

== ENCOUNTER 2021-12-31 15:07 | Outpatient (CLI) | payer MEDICARE, OTHER, SELFPAY ==
--- NOTE | 2021-12-31 14:00 | DI.RAD_ITS ---
Exam(s) XR KNEE RT 2V AP,LAT EXAM: XR KNEE RT 2V AP,LAT CLINICAL HISTORY: right patella ORIF. TECHNIQUE: 2D digital imaging was performed. COMPARISON: CR,XR XR KNEE RT 4V AP,LAT,BRICE,PAT from 12/16/2021 FINDINGS: Two views There has been interval surgery. There is now fixation plate on the anterior aspect of the patella a nd an additional inferior to superior directed screw the mid aspect of the patella. Satisfactory alignment of the fracture fragments. Chondrocalcinosis is again noted in the medial lat eral compartments. IMPRESSION: DATA REPOSITORY: RADIATION DOSE DELIVERED:
--- OUTSIDE RECORDS SUMMARY | 2021-12-31 15:09 | XMS_ITS | Encounter Summary ---
:1945 Author Organization [facility] Address [address] [place] [address] Care Team Providers Name Role Phone Juan C Lee MD Primary Care Provider Reason for Visit Reason Comments Post-OP Follow Up DOS: 10/19/2013 with XRAY Encounter Details Date Type Department Care Team Description 11/24/2013 Office Visit [facility] Choco Keating S/January barney itral valve Cardiothoracic Surgery - DMD repair (Primary Dx) [facility] [address] [facility] [address] [facility] [address] [place] [address] [place], [place] [phone] Social History Tobacco Use Types Packs/Day Years Used Date Former Smoker 1 60 Quit: 07/26/19 00 Smokeless Tobacco: Never Used Alcohol Use Standard Drinks/Week Comments Yes 17.5 (1 standard drink = 0.6 oz pure alc ohol) Sex Assigned at Date Recorded Not on file documented as of this encounter Last Filed Vital Signs Vital Sign Reading Time Taken Comments Blood Pressure 122/74 11/24/2013 1403 EDT Pulse 80 11/24/2013 1403 EDT Temperature 35.4 ??C (95.8 ??F) 11/24/2013 1403 EDT Respiratory Rate 12 11/24/2013 1403 EDT Oxygen Saturation 97% 11/24/2013 1403 EDT Inhaled Oxygen Concentration - - Weight 73.9 kg (163 lb) 11/24/2013 1403 EDT Height 178 cm (5' 10.08) 11/24/2013 1403 EDT Body Mass Index 23.33 11/24/2013 1403 EDT documented in this encounter Functional Status Functional Status Response Date of Assessment Are you deaf or do you have serious difficulty hearing? No 10/20/2013 Are you blind or do you have serious difficulty seeing, No 10/20/2013 even when wearing glasses? Do you have serious difficulty walking or climbing No 10/20/2013 stairs? (5 years old or older) Do you have difficulty dressing or bathing? (5 years old No 10/20/2013 or older) Because of a physical, mental, or emotional condition, do No 10/20/2013 you have difficulty doing errands alone such as visiting a doctor's office or shopping? (15 years old or older) Cognitive Status Response Date of Assessment Because of a physical, mental, or emotional condition, do Ye s 10/20/2013 you have serious difficulty concentrating, remembering, or making decisions? (5 years old or older) documented as of this encounter Discharge Diagnoses Diagnosis V45.89 POSTSURGICAL STATES NEC[ICD-9-CM] 424.0 MITRAL VALVE DISORDER[ICD-9-CM] documented in this encounter Patient Instructions Patient InstructionsLynn Lobato RN - 11/24/2013 14:03 EDT No lift, push, pull greater than ten pounds for 12 weeks if you had a full- sternotomy (long incisionover chest bone), 6 weeks for mini-sternotomy (short incision over chest bone) 2 weeks for mini-thoracotomy (short incision/incisions on side/sides of chest). Continue your long-term care follow-up with your Payroll Technician/Heart Doctor and Primary Care Provider/Doctor as well as any other Providers/Doctors that you normally follow with. Continue to follow your Cardiac Diet. You will learn more about your Cardiac Diet at the Outpatient Cardiac Rehabilitation Program. If you are diabetic, continue to follow the Diabetic Diet. Follow-up with your Primary Care Provider/Doctor or Cementer Helper/Diabetes Doctor (if you normally follow with one) for your diabetes. Continue to ambulate/walk as reviewed in the Discharge Video. Continue Cardiac Rehabilitation at the Hospital closest to your home. If you have not started Cardiac Rehabilitation, contact your Primary Care Provider/Doctor or your Payroll Technician/Heart Doctor for a referral to the Program with a Stress Test. For those of you who attendthe Program at [facility], you can have your Stress Test at the Cardiac Rehabilitation Program. They are located at [address] [place] [address] and their telephone numberis . Follow the [employer] Antibiotic Prophylaxis/Prevention Guidelines given and reviewed with you in a handout format today. Bring this with you to your Cardiology/Heart follow-up visits in the future so that your Payroll Technician/Heart Doctor can inform you of any future updates regarding these Guidelines. Your prescription for an antibiotic should come from your Primary Care Provider/Doctor or Dentist. Wait three months from your surgery date to have dental work or dental cleanings unless you are having a dental problem then follow the Guidelines given to you listed above. Contact our office (Cardiothoracic Surgery) at or if you have any questions or problems as reviewed. As always, if you are having a medical emergency contact 911. documented in this encounter Discharge Disposition Disposition Code Departure Means Destination Auto Discharge documented in this encounter Progress Notes Choco Keating MD - 11/25/2013 1008 EDT [facility] DIV[facility] OF CARDIOTHORACIC SURGERY November 24, 2013 Juan C Lee MD [facility] [address] [place] [address] RE: JORGE LUIS SIERRA : [address] Lee: This letter is in followup regarding Jorge Luis Sierra, I am seeing for his postoperative visit today status post mitral valve repair. Overall, he feels well and has no specific complaints. He is walking may regular basis on a treadmill and plans to enroll in cardiac rehab soon. He denies wound problems. His medications include aspirin, atorvastatin, ibuprofen, and metoprolol. On physical exam today his blood pressure is 122/74 mmHg, and heart rate is 80 and regular. Respiratory rate is 12 and he is afebrile. Oxygen saturation on room air is 97%. On lung exam, he has mildly diminished breath sounds in the right base, otherwise his lungs are clear. On precordial exam, he is in a regular rate and rhythm without murmur, gallop or rub. His right upper mini thoracotomy incisionhas healed well. Jorge Luis had a repeat chest x-ray today and this shows a scant right pleural effusion. Jorge Luis has recovered well from mitral valve surgery, and at this point seems to be motivated on his exercise program. He will begin cardiac rehab soon. He has gone back to driving. I told him that he hasno lifting restrictions at this point. He will continue to follow up with both you and Dr Castro and requires no further followup in this office. If you have any questions, please feel free to call. Sincerely, Choco Keating MD 02 42 PM - Choco Keating MD cn Dictation ID: [id number] cc: Jose Castro MD, [facility] Cardiology [address] [place] [address], [address], [place] [address] Juan C Lee MD, [facility] [address], [place] [address] chChoco linares MD - 11/24/2013 1442 EDT This office note has been dictated. documented in this encounter Plan of Treatment Not on filedocumented as of this encounter Visit Diagnoses Diagnosis S/P mitral valve repair - Primary Other postprocedural status documented in this encounter Discontinued Medications Medication Sig Discontinue Reason Start Date End Date bisacodyl (DULCOLAX) 10 Place 1 Suppository Patient Stopped 014 11/24/2013 mg suppository rectally daily as Taking needed for Other (constipation). bisacodyl (DULCOLAX) 5 Take 1 Tab by mouth Patient Stopped 10/23/19 14 11/24/2013 mg EC tablet daily as needed for Taking Constipation. docusate sodium Take 1 Cap by mouth Patient Stopped 10/21/2013 (COLACE) 100 mg capsule 2 times daily. Taking HYDROmorphone Take 1-2 Tabs by Patient Stopped 10/22/2013 014 (DILAUDID) 2 mg tablet mouth every 3 hours Taking as needed for Pain. magnesium hydroxide Take 30 mL by mouth Patient Stopped 10/21/2013 11/24/2013 (MILK OF MAGNESIA) 400 daily as needed for Taking mg/5 mL suspension Other (constipation). PEG 3350-Electrolytes Take 17 g by mouth Patient Stopped 10/21/2013 11/24/2013 (MIRALAX) 17 gram daily. Taking packet senna (SENOKOT) 8.6 mg Take 1 Tab by mouth Patient Stopped 10/22/1911/24/2013 tablet at bedtime. Taking sodium phosphate Place 1 Enema Patient Stopped 10/22/2013 014 (FLEET) 19-7 gram/118 rectally daily as Taking mL enema needed for Other (constipation). documented as of this encounter Care Teams Chief Wharfinger Relationship Specialty Start Date End Date Juan C Lee MD PCP - General 10/12/13 [address] [place] [address] documented as of this encounter
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
--- OUTSIDE RECORDS SUMMARY | 2021-12-31 15:09 | XMS_ITS | Encounter Summary ---
:[address] [facility] Address [address] [place] [address] Care Team Providers Name Role Phone Juan C Lee MD Primary Care Provider Reason for Visit Reason Onset Date Comments Post-OP Follow Up 11/05/2013 Encounter Details Date Type Department Care Team Description 11/05/2013 Telephone [facility] Choco Keating Po st-OP Follow Up Cardiothoracic Surgery - [facility] [address] [facility] 111 [facility] [address] [place], [place] [id number] [place] [address] [phone] (Wo rk) Social History Tobacco Use Types Packs/Day Years Used Date Former Smoker 1 60 Quit: 07/26/19 Smokeless Tobacco: Never Used Alcohol Use Standard Drinks/Week Comments Yes 17.5 (1 standard drink = 0.6 oz pure alc ohol) Sex Assigned at Date Recorded Not on file documented as of this encounter Functional Status Functional Status Response [...] or older) documented as of this encounter Miscellaneous Notes Telephone Encounter - Raegan Powell - 11/11/2013 1611 EDT Message x 2 left for nurse on 11/08. 11/11/13 1611 I called this patient at this time. He states I'm all set with my medications and will follow-up with Dr. Lee for refills. Pt states continues to walk, shower, afebrile, no weight gain, denies SOB. Pt is following with Dr. Castro Beater Boss who he saw this week and he is following as well with Dr. Lee. He will call with questions as previously reviewed. He verbalized understanding. P) As above. Telephone Encounter - Raegan Powell - 11/05/2013 0944 EDT Message left. Telephone Encounter - Jude Subramanian - 11/05/2013 0927 EDT JING RN calling re patient's meds. documented in this encounter Plan of Treatment Not on filedocumented as of this encounter Visit Diagnoses Not on filedocumented in this encounter Care Teams Hard Candy Spinner Relationship Specialty Start Date End Date Juan C Lee MD PCP - General 10/12/13 [address] [place] [address] documented as of this encounter
--- OUTSIDE RECORDS SUMMARY | 2021-12-31 15:09 | XMS_ITS | Encounter Summary ---
:1945 Author Organization [facility] Address [address] [place] [address] Care Team Providers Name Role Phone Juan C Lee MD Primary Care Provider Encounter Details Date Type Department Care Team Description 03/08/2016 Hospital Encounter [facility] [place] Unknown, Provider, [facility] [address] [facility] [phone] [place] [address] (Work) [phone] Social History Tobacco Use Types Packs/Day Years [...] or older) documented as of this encounter Medications at Time of Discharge Medication Sig Dispensed Refills Start Date End Date acetaminophen (TYLENOL) 500 mg Take 1-2 Tabs by 0 10/21/2013 tablet mouth every 6 hours as needed for Pain or Fever (Give prn for mild pain or fever > 38.). aspirin 81 mg EC tablet Take 81 mg by mouth every evening . 0 atorvastatin (LIPITOR) 20 mg Take 20 mg by 0 tabletIndications: mouth every hypercholesterolemia evening Indications: HYPERCHOLESTEROLE BETHANY. ibuprofen (MOTRIN) 200 mg Take 200 mg by 0 tablet mouth every evening. documented as of this encounter Discharge Disposition Disposition Code Departure Means Destination Home or Self Nursing Home documented in this encounter Plan of Treatment Not on filedocumented as of this encounter Visit Diagnoses Not on filedocumented in this encounter Care Teams Senior Tech Manufacturing Engineering Relationship Specialty Start Date End Date Juan C Lee MD PCP - General 10/12/13 [address] [place] [address] documented as of this encounter
--- OUTSIDE RECORDS SUMMARY | 2021-12-31 15:09 | XMS_ITS | Encounter Summary ---
:1945 Author Organization [facility] Address [address] [place] [address] Care Team Providers Name Role Phone Juan C Lee MD Primary Care Provider Encounter Details Date Type Department Care Team Description 07/29/2016 Results Only [facility], [address] [place] [address] [place] [address] (Wo rk) Social History Tobacco Use Types [...] or older) documented as of this encounter Plan of Treatment Not on filedocumented as of this encounter Procedures Procedure Name Priority Date/Time Associated Diagnosis Comme nts SURGICAL PATHOLOGY Routine 07/29/2016 15:43 Resul ts for this EST procedure are i n the results section. documented in this encounter Results SURGICAL PATHOLOGY (07/29/2016 15:43 EST) Pathology Report: SURGICAL PATHOLOGY REPORT [facility] Reports generated via electronic interface contain doug ginal data; LABORATORY however they are lacking the format of the original re port. SERVICES Caution should be taken when reading/interpreting unfo rmatted reports. Name: ? JORGE LUIS SIERRA ? Accession #: ? [id number] ? : ? 1945 (Age: 5 2) ??M ? Collect Date: ? 07/29/2016 ? Location: ? [facility] ? Receive Date: ? 07/29/19 17 ? Provider: CLAUDE TARANGO MD Copy to: JUAN C LEE MD ? Final Pathologic Diagnosis: A. ??COLON, CECUM, POLYP, BIOPSY: - Fragments of tubular adenoma. B. ??COLON, ASCENDING, POLYP, BIOPSY: - Fragments of tubular adenoma. C. ??COLON, TRANSVERSE, POLYP, BIOPSY: - Fragments of tubular adenoma. D. ??COLON, DESCENDING, POLYP, BIOPSY: - Hyperplastic polyp. E. ??COLON, SIGMOID, POLYP, BIOPSY: - Tubular adenoma. F. ??RECTUM, POLYPS, BIOPSY: - Fragments of tubulovillous adenoma(s). Document reviewed and electronically signed by: JENNIE RM MD Report ??Date: 07/30/2016 14:17 By the signature above, the attending physician certif ies that he/she has personally conducted a gross and/or microscopic examin ation of the described specimens and rendered or confirmed the above diagnosi s. Specimen(s) Received: A. ??Cecal polyp B. ??Ascending colon polyp C. ??Transverse colon polyp x2 D. ??Descending colon polyp E. ??Sigmoid colon polyp x2 F. ??Rectal polyps x2 Clinical History: History of colon polyps Gross Description: A. ?Received in formalin labelled with proper p atient identification (initials M, P) and 1. ceca l polyp are two singh-yellow polypoid tissues (0.2 x 0.2 x 0.1 cm and 0.3 x 0.2 x 0.2 cm). Entirely submitt ed in A1. B. ?Received in formalin labelled with proper p atient identification (initials M, P) and 2. ascending colon are fiv e singh-yellow polypoid tissues (0.2 x 0.1 x 0.1 cm to 0.4 x 0.3 x 0.2 cm). Entirely s ubmitted in B1 and B2. C. ?Received in formalin labelled with proper p atient identification (initials M, P) and 3. transverse colon polyp x2 are four singh-yellow to singh-yellow focally brown ruth ann ypoid tissues (0.2 x 0.2 x 0.1 cm to 0.6 x 0.3 x 0.2 cm). Entirely submitted in C1 and C2. D. ?Received in formalin labelled with proper p atient identification (initials M, P) and 4. desc ending colon polyp is a single singh-yellow polypoid tissue fragment (0.3 x 0.3 x 0.3 cm). Submitted intact in D1. E. ?Received in formalin labelled with proper p atient identification (initials M, P) and 5. sigm oid colon polyp are two singh-yellow polypoid tissues (0.3 x 0.2 x 0.2 cm and 0.5 x 0.3 x 0.2 cm). Entirely submitted in E1. F. ? Received in formalin labelled with proper pat ient identification (initials M, P) and 6. rect al polyp x2 are thirteen singh-pink polypoid tissues (0.2 x 0.2 x 0.1 cm to 0.7 x 0.5 x 0.5 cm). Margins of the two largest polypoid tissues are inked blue. The two largest tissues are bisected. Entirely submitted in F1-F6. Maria Alejandra Galindochandu 07/29/2016 4:16 PM End of Report Specimen Performing Organization Address City/State/ZIP Code Phon e Number [facility] [address] [place] [address] SERVICES documented in this encounter Visit Diagnoses Not on filedocumented in this encounter Care Teams Baster Hand Relationship Specialty Start Date End Date Juan C Lee MD PCP - General 10/12/13 [address] [place], [place] [id number] documented as of this encounter
--- OUTSIDE RECORDS SUMMARY | 2021-12-31 15:09 | XMS_ITS | Encounter Summary ---
:1945 Author Organization [facility] Address [address] [place] [address] Care Team Providers Name Role Phone Juan C Lee MD Primary Care Provider Reason for Visit Reason Onset Date Comments Post-OP Follow Up 10/27/2013 Encounter Details Date Type Department Care Team Description 10/27/2013 Telephone [facility] Raegan Powell Post-OP Follow Up Cardiothoracic Surgery - [facility] CARE [address] [facility] [address] [place] [address] Social History Tobacco Use Types Packs/Day Years [...] Miscellaneous Notes Telephone Encounter - Raegan Powell E - 10/27/2013 7902 EDT Post-Hospital Discharge Call Surgery: Right Mini-Thoracotomy MVRepair Annuloplasty Surgeon: Dr. Keating Patient understands Discharge Instructions and After Visit Summary: Yes Pain Rating Tool Pain: No Intensity: 1 Location: Incisional with Tylenol relieve Other: N/A Discharge Medications Understood: Yes Restrictions Post-Operatively: No lifting, pushing, pulling greater than 10 pounds for 2 weeks Incisions Redness: No Drainage: No Erythema: No Warm to Touch: No Swelling: No Incision healing/well-approximated: Yes Fever: No Shower with soap and water daily with incisional dressings off. Reapply dressing following shower asneeded or as directed in After Visit Summary: Yes Will start shower today as has been sponge bathing. Encouraged shower daily or every other day Lower Extremity Pain Calf Pain, redness, warmth to the touch, positive Dez's Sign Cardiac Rapid or irregular heart beat: No Dizziness: No Syncope: No Diaphoresis: No Shortness of Breath: No Pain/Discomfort: No Other: N/A Activity Ambulating three times daily or as Per Instructions: Yes Cardiac Surgery Patients per Discharge Video: Yes Sleep Difficulty sleeping: No Respiratory Inspirometer use as directed 5 x daily (10 x each time): Yes Using q 1-2 hours Shortness of Breath: No Dyspnea on Exertion: No Productive Cough: No Bowels BM: daily to every other day PO Intake and Appetite Appetite: Yes PO Intake adequate: Yes Fluid Intake adequate: Yes Weight (Cardiac Surgery Patients) No weight gain of 3 lbs or greater in one day (for approx. 2 weeks): Yes Or progressive weight gain one pound per day for three days Weight same time every day: Yes Extremity Edema: No Fever Take temperature twice daily (for approx 2 weeks) if temperature of 101 degress or greater call Provider: Yes Afebrile: Yes Appointments Cardiac Surgery Follow-up appointment made (6 weeks cardiac, 4 weeks thoracic, or other per Discharge Instructions): Yes Cardiology Follow-up Appointment made (2-4 weeks or as per Discharge Instructions): If [facility] Focused Factory Manager email cardschedule to have them make a follow-up appointment and they will call the patient or ask bilingual secretary to do this. If Private Practice Focused Factory Manager ask patient to call and make appointment: Girlfriend to make appt with DR. Castro She will call today. Endocrine Appointment made (see within 1-2 weeks of discharge if appropriate): No Oncology Appointment made (see within 4-8 weeks of discharge or as per Discharge Instructions: No To be made at time of Appointment with CT Surgery Follow-up Visit: No Primary Care Provider Follow-up Appointment made (see within 1-2 weeks of discharge): Yes Patient's will call today and see patient this week or next. Cardiac Rehabilitation Has patient started cardiac rehabilitation: Per Dr. Castro Focused Factory Manager PLAN: As Above Patient and Friend Understands Information Reviewed: Yes Barriers to Learning: No Talked with patient and girlfriend. documented in this encounter Plan of Treatment Not on filedocumented as of this encounter Visit Diagnoses Not on filedocumented in this encounter Care Teams Wharf Laborer Relationship Specialty Start Date End Date Juan C Lee MD PCP - General 10/12/13 [address] [place] [address] documented as of this encounter
--- OUTSIDE RECORDS SUMMARY | 2021-12-31 15:09 | XMS_ITS | Encounter Summary ---
:1945 Author Organization [facility] Address [address] [place] [address] Care Team Providers Name Role Phone Juan C Lee MD Primary Care Provider Encounter Details Date Type Department Care Team Description 06/26/2020 Lab Requisition [facility] Justin Aguilar for other Pathology & MD Olivia general examination Laboratory Medicine [address] [place], [place] [address] [facility] [address] [place], [place] [address] Social History Tobacco Use Types Packs/Day Years [...] Date/Time Associated Diagnosis Comme nts SURGICAL PATHOLOGY Today 06/26/2020 10:26 Encounter for othe r Results for this EST general examination procedur e are in the results section. documented in this encounter Results SURGICAL PATHOLOGY (06/26/2020 10:26 EST) Final Diagnosis A. COLON, CECUM, POLYP, BIOPSY: [facility] - Tubular adenoma. CENTER - Mild melanosis coli. LABORATORY SERVICES B. COLON, ASCENDING, POLYP, BIOPSY: - Tubular adenoma. - Mild melanosis coli. C. COLON, TRANSVERSE, POLYPS, BIOPSY: - Tubular adenomas. - Mild melanosis coli. D. COLON, DESCENDING, POLYP, BIOPSY: - Suggestive of hyperplastic polyp. - Deeper sections x3 examined. Attestation There was significant [facility] MEDICAL Electr onically resident/fellow CENTER signed by Ab kerry Cruz involvement in the LABORATORY Chary Young on diagnostic evaluation SERVICES 2019 at 0958 of this case. By the signature below, the attending physician certifies that they have personally conducted a gross and/or microscopic examination of the described specimens and rendered or confirmed the above diagnosis. Clinical History History of colon [facility] MEDICAL polyps CENTER LABORATORY SERVICES Gross Description A. [facility] Received in formalin goldie d with proper patient identification (initials M, P) and cecal polyp are 2 singh-brown tissues (0.4 x 0.2 x 0.1 cm and 0.4 x 0.2 x 0.1 cm). Submitted entirely in A1. CENTER LABORATORY B. SERVICES Received in formalin goldie d with proper patient identification (initials M, P) and ascending colon polyp is a single singh-brown polypoid tissue (0.3 x 0.2 x 0.1 cm). Submitted intact in B1. C. Received in formalin goldie d with proper patient identification (initials M, P) and transverse colon polyps x2 are 2 singh-brown tissues (0.4 x 0.2 x 0.2 cm and 0.3 x 0.2 x 0.1 cm). Submitted entirely in C1. D. Received in formalin goldie d with proper patient identification (initials M, P) and descending colon polyp is a single singh-brown polypoid tissue (0.3 x 0.3 x 0.2 cm). Submitted intact in D1. EDUARDO FAROOQ([facility]) 06/26/2020 18:32 Resident/Fellow: Jonathan Hendrickson MD [facility] Performing Lab [facility] Scanned Images [facility] Specimen Tissue - Descending colon structure (bod y structure) Tissue specimen (specimen) - Ascending c olon structure (body structure) Tissue specimen (specimen) - Entire montana sverse colon (body structure) Tissue specimen (specimen) - Descending colon structure (body structure) Performing Organization Address City/State/ZIP Code Phon e Number [facility] [address] [place] [address] SERVICES documented in this encounter Visit Diagnoses Diagnosis Encounter for other general examination documented in this encounter Care Teams Filler Shaker Relationship Specialty Start Date End Date Juan C Lee MD PCP - General 10/12/13 [address] [place], [place] [id number] documented as of this encounter
--- OUTSIDE RECORDS SUMMARY | 2021-12-31 15:09 | XMS_ITS | Encounter Summary ---
:1945 Author Organization [facility] Address [address] [place] [address] Care Team Providers Name Role Phone Juan C Lee MD Primary Care Provider Reason for Referral Radiology Services (Routine) - Closed Specialty Diagnoses / Procedures Referred By Contact Refer red To Contact Diagnoses Mitral valve disorders(424.0) Choco Keating MD Procedures CHEST PA AND LATERAL [facility] [address] [id number] Referral ID Status Reason Start Date Expiration Date Visits Requ ested Visits Authorized [id number] Closed 11/06/2013 1 1 Reason for Visit Reason Onset Date Comments Post-OP Follow Up 11/02/2013 Encounter Details Date Type Department Care Team Description 11/02/2013 Orders Only [facility] Choco Keating valve Cardiothoracic Surgery - MD Frank disorders (Primary Main [place] [address] [facility]) [address] [address] [place], [place] [phone] Social History Tobacco Use Types Packs/Day [...] Name Priority Date/Time Associated Diagnosis Comme nts CHEST PA AND Routine 11/24/2013 13:48 Mitral valve Results for this LATERAL EDT disorders procedure are i n the results section. documented in this encounter Results CHEST PA AND LATERAL (11/24/2013 13:48 EDT) Anatomical Region Laterality Modality Other Specimen Narrative [facility] RAD[facility]OLOGY - 11/24/2013 16:48 EDT CHEST PA AND LATERAL ??11/24/2013 1:48 PM Signs and Symptoms/Comments: ??424.0-[facility] ral valve [id number]; s/p MVRepair. Comparisons: 2 months prior. Dual-energy technique with reconstructio ns in normal, soft tissue and bone windows was used. PA and lateral vi ews were performed. Findings: The patient is status post mitral annulo plasty. The cardiomedial silhouette and pulmonary vasculature are normal. In comparison to the prior exam there has been near resolutio n of dependent pleural effusions with residual pleural fluid ev ident within the minor fissure accounting for the hazy opacity within the right lower lung with an abrupt interface and additional opacity within the retrocardiac region in the lateral view. A small pleural fluid is evident within the right lateral costoph renic angle. The lungs are clear. The bones and overlying soft tiss ues are unremarkable for age. ?? Impression: Small amount of residual rig ht pleural fluid within the lateral costophrenic angle and the minor fissure. Procedure Note 11/24/2013 CHEST PA AND LATERAL 11/24/2013 1:48 PM Signs and Symptoms/Comments: 424.0-Jenae l valve [id number]; s/p MVRepair. Comparisons: 2 months prior. Dual-energy technique with reconstructio ns in normal, soft tissue and bone windows was used. PA and lateral vi ews were performed. Findings: The patient is status post mitral annulo plasty. The cardiomedial silhouette and pulmonary vasculature are normal. In comparison to the prior exam there has been near resolutio n of dependent pleural effusions with residual pleural fluid ev ident within the minor fissure accounting for the hazy opacity within the right lower lung with an abrupt interface and additional opacity within the retrocardiac region in the lateral view. A small pleural fluid is evident within the right lateral costoph renic angle. The lungs are clear. The bones and overlying soft tiss ues are unremarkable for age. Impression: Small amount of residual rig ht pleural fluid within the lateral costophrenic angle and the minor fissure. Performing Organization Address City/State/ZIP Code Phon e Number [facility] [place] [facility] documented in this encounter Visit Diagnoses Diagnosis Mitral valve disorders(424.0) - Primary Mitral valve disorders documented in this encounter Care Teams Block And Case Maker Relationship Specialty Start Date End Date Juan C Lee MD PCP - General 10/12/13 [address] [place] [address] documented as of this encounter
--- OUTSIDE RECORDS SUMMARY | 2021-12-31 15:09 | XMS_ITS | Encounter Summary ---
:1945 Author Organization [facility] Address [address] [place] [address] Care Team Providers Name Role Phone Juan C Lee MD Primary Care Provider Encounter Details Date Type Department Care Team Description 03/08/2016 Results Only [facility]- PRISM Juan C Lee MD [phone] [address] [place], [place] [address] (Wo rk) Social History Tobacco Use Types [...] Associated Diagnosis Comme nts SURGICAL PATHOLOGY Routine 03/08/2016 8:53 EDT Re sults for this procedure are i n the results section. documented in this encounter Results SURGICAL PATHOLOGY (03/08/2016 8:53 EDT) Pathology Report: SURGICAL PATHOLOGY REPORT [facility] Reports generated via electronic interface contain doug ginal data; LABORATORY however they are lacking the format of the original re port. SERVICES Caution should be taken when reading/interpreting unfo rmatted reports. Name: ? JORGE LUIS SIERRA ? Accession #: ? [id number] ? : ? 1945 (Age: [age]) ??M ? Collect Date: ? 03/08/2016 ? Location: ? [facility] ? Receive Date: ? 6 ? Provider: JUAN C LEE MD Copy to: ? Final Pathologic Diagnosis: SKIN OF CHIN, LEFT, SHAVE BIOPSY: - Verruca vulgaris. ?? Document reviewed and electronically signed by: YAIR SOTO MD Report ??Date: 03/13/2016 12:17 By the signature above, the attending physician certif ies that he/she has personally conducted a gross and/or microscopic examin ation of the described specimens and rendered or confirmed the above diagnosi s. Specimen(s) Received: Shave excisional biopsy lesion left chin Clinical History: Enlarging lesion L chin; DDx: Skin tag, actinic horn Gross Description: ? Received in formalin labelled with proper patient identification (initials M, P) and skin lesion L side chin is a shave biopsy of a singh-white pearly, verrucoid papule (0.2 x 0.2 cm and exten ds upwards of 0.4 cm). The specimen is submitted entirely in 1. EDUARDO Casper (ASCP) 03/12/2016 9:27 AM End of Report Specimen Performing Organization Address City/State/ZIP Code Phon e Number [facility] [address] [place] [address] SERVICES documented in this encounter Visit Diagnoses Not on filedocumented in this encounter Care Teams Wood Caulker Relationship Specialty Start Date End Date Juan C Lee MD PCP - General 10/12/13 [address] [place], [place] [id number] documented as of this encounter
--- OUTSIDE RECORDS SUMMARY | 2021-12-31 15:09 | XMS_ITS | Encounter Summary ---
:1945 Author Organization [facility] Address [address] [place] [address] Care Team Providers Name Role Phone Juan C Lee MD Primary Care Provider Encounter Details Date Type Department Care Team Description 06/22/[address] [facility] Outr Resulting Lab, Pathology & Laboratory Provider [facility] [address] [place] [address] Social History Tobacco Use Types Packs/Day Years [...] Name Priority Date/Time Associated Diagnosis Comme nts COVID-19 TEST [facility] Today 06/22/2020 8:58 EST LAB PCR COVID-19 TESTING Routine 06/22/2020 8:58 EST Resu lts for this procedure are i n the results section. documented in this encounter Results COVID-19 TEST [facility] PCR (06/22/2020 8:58 EST) Specimen Swab - Entire nasopharynx (body structur e) Performing Organization Address City/[facility] Phon e Number [facility] [address] [place] [address] SERVICES COVID-19 TESTING (06/22/2020 8:58 EST) COVID-19 rt-PCR NegativeComment: Negative [facility] Result Negative results do [facility] not preclude 2019-nCoV SERVICES infection and should not be used as the sole basis for treatment or other patient management decisions. Negative results must be combined with clinical observations, patient history, and epidemiological information. Performing Lab [employer] [facility] SERVICES Specimen Swab Performing Organization Address City/[facility] Phon e Number [facility] [address] [place] [address] SERVICES documented in this encounter Visit Diagnoses Not on filedocumented in this encounter Care Teams Air Support Operations Operator Relationship Specialty Start Date End Date Juan C Lee MD PCP - General 10/12/13 [address] [place] [address] documented as of this encounter
--- OUTSIDE RECORDS SUMMARY | 2021-12-31 15:10 | XMS_ITS | Encounter Summary ---
:1945 Author Organization [facility] Address [address] [place] [address] Care Team Providers Name Role Phone Juan C Lee MD Primary Care Provider Encounter Details Date Type Department Care Team Description 10/14/2013 Documentation Visit [facility] Steve Powell Cardiothoracic Surgery [facility] [address] [facility] [address] [place] [address] [address] [phone] [place] [address] Social History Tobacco Use Types Packs/Day Years Used Date Former Smoker 1 60 Quit: 07/26/19 Smokeless Tobacco: Never Used Alcohol Use Standard Drinks/Week Comments Yes 0 (1 standard drink = 0.6 oz pure alcoho l) occasionally Alcohol Habits Answer Date Recorded How often do you have a drink containing alcohol? Not asked How many drinks containing alcohol do you have on a Not aske d typical day when you are drinking? How often do you have six or more drinks on one occasion? No t asked Comment: occasionally 10/14/2013 Sex Assigned at Date Recorded Not on file documented as of this encounter Progress Notes Raegan Powell - 10/14/2013 1006 EDT A user error has taken place: encounter opened in error, closed for administrative reasons. documented in this encounter Plan of Treatment Not on filedocumented as of this encounter Visit Diagnoses Not on filedocumented in this encounter Care Teams Belt Press Operator Relationship Specialty Start Date End Date Juan C Lee MD PCP - General 10/12/13 [address] [place] [address] documented as of this encounter
--- OUTSIDE RECORDS SUMMARY | 2021-12-31 15:10 | XMS_ITS | Encounter Summary ---
:1945 Author Organization [facility] Address [address] [place] [address] Care Team Providers Name Role Phone Maggie Lee MD Primary Care Provider Reason for Referral Consult (Routine) - Closed Specialty Diagnoses / Procedures Referred By Contact Refer red To Contact Diagnoses Mitral valve insufficiency Mt Cannon MD [address] [place] [id number] Referral ID Status Reason Start Date Expiration Date Visits V isits Requested Authorized [id number] Closed Specialty 10/21/2013 1 1 Services Required Question Answer Long Term Referral - Assessment: CP Status Long Term Referral - Disease Mgmt and Education Hypertension, Medication Mgmt about: Long Term Referral - Wound Care: (Please include Post Surgical care and frequency.) (Routine) - Closed Specialty Diagnoses / Procedures Referred By Contact Refer red To Contact Mt Cannon MD [address] [place] [address] Referral ID Status Reason Start Date Expiration Date Visits V isits Requested Authorized [id number] Closed Specialty 10/21/2013 1 1 Services Required (Routine) - Closed Specialty Diagnoses / Procedures Referred By Contact Refer red To Contact Mt Cannon MD [address] [place] [address] Referral ID Status Reason Start Date Expiration Date Visits V isits Requested Authorized [id number] Closed Specialty 10/21/2013 1 1 Services Required (Routine) - Closed Specialty Diagnoses / Procedures Referred By Contact Refer red To Contact Mt Cannon MD [address] [place] [address] Referral ID Status Reason Start Date Expiration Date Visits V isits Requested Authorized [id number] Closed Specialty 10/21/2013 1 1 Services Required (Routine) - Closed Specialty Diagnoses / Procedures Referred By Contact Refer red To Contact tM Cannon MD [address] [place] [address] Referral ID Status Reason Start Date Expiration Date Visits V isits Requested Authorized [id number] Closed Specialty 10/21/2013 1 1 Services Required (Routine) - Closed Specialty Diagnoses / Procedures Referred By Contact Refer red To Contact Mt Cannon MD [address] [place] [address] Referral ID Status Reason Start Date Expiration Date Visits V isits Requested Authorized [id number] Closed Specialty 10/21/2013 1 1 Services Required (Routine) - Closed Specialty Diagnoses / Procedures Referred By Contact Refer red To Contact Mt Cannon MD [address] [place] [address] Referral ID Status Reason Start Date Expiration Date Visits V isits Requested Authorized [id number] Closed Specialty 10/21/2013 1 1 Services Required Comments - Check in at Registration on level 3 (s treet level) at [facility] 45 minutes prior to your scheduled appointm ent with the surgeon. - If you have a chest x-ray prior to you r appointment with the surgeon, contact the surgeon's office at or [phone] to see if this x-ray will still be needed. Encounter Details Date Type Department Care Team Description 10/19/2013 - [facility], Mitral va lve 10/22/2013 Encounter Cardiothoracic Choco Marie MD insufficiency Surgery Unit [address] (Primary Dx) [address] [place] [address] [address] [id number] Social History Tobacco Use Types Packs/Day Years Used Date Former Smoker 1 60 Quit: 07/26/19 Smokeless Tobacco: Never Used Alcohol Use Standard Drinks/Week Comments Yes 17.5 (1 standard drink = 0.6 oz pure alc ohol) Sex Assigned at Date Recorded Not on file documented as of this encounter Last Filed Vital Signs Vital Sign Reading Time Taken Comments Blood Pressure 110/62 10/22/2013 1005 EDT Pulse 96 10/22/2013 0829 EDT Temperature 35.8 ??C (96.4 ??F) 10/22/2013 1005 EDT Respiratory Rate 18 10/22/2013 1005 EDT Oxygen Saturation 97% 10/22/2013 1005 EDT Inhaled Oxygen Concentration - - Weight 76.9 kg (169 lb 8.5 oz) 10/22/2013 0620 EDT Height 178 cm (5' 10.08) 10/20/2013 0900 EDT Body Mass Index 24.27 10/20/2013 0900 EDT documented in this encounter Functional Status [...] older) documented as of this encounter Discharge Summaries Mt Cannon MD - 10/19/2013 0346 EDT Chief Complaint/Reason for Admission: mitral regurgitation Principal/Final Diagnosis: same Principal Procedure: right mini-thoracotomy Mitral valve repair, annuloplasty Date: 10/19/13 Secondary Procedures: same Prognosis: fair Condition at Discharge: Stable Hospital Course: Jorge Luis Sierra is a 67 y.o. male with a history remarkable for known mitral regurgitation who developed left atrial and ventricular dilation and the decision was made to go to the OR. The patient was taken to the OR on 10/19/2013 for a right mini-thoracotomy Mitral valve repair, leaflet resection, and a nnuloplasty by Dr. Keating. Intra-op echo showed an EF of 60%. Post- operatively, patient was transferred intubated to the SICU for further management. Patient was extubated on POD#0. On POD#1, the chest tube, pacing wires were removed. CXR, ECG, & labs on POD#0/1 were unremarkable. Patient was transferred to the floor on POD#1. The cordis and mir were removed. He went into a fib briefly on POD#2, he lopressor was increased. He converted back into NSR the same day. CXR showed small effusions. ECG & labs on POD#3 were unremarkable and patient was transitioned off insulin gtt to supplemental insulin. Patient was discharged to home in stable condition on 10/22/13. Per protocol, patient discharged with 2 weeks of PO Lasix with potassium supplementation. Patient was not discharged on Coumadin. Patientwill follow up in clinic with Choco Keating MD in 6 weeks. Relevant Studies at Discharge: CHEST PA AND LATERAL 10/22/2013 8:53 AM There has been removal of all lines and tubes. The patient is status post recent mitral valve annuloplasty. The cardiomedial silhouette and pulmonary vasculature are within normal limits. There are aresmall bilateral effusions and associated areas of bibasilar atelectasis, right greater than left. The lungs are otherwise clear. The bones are within normal limits for age. Impression: Small bilateral p leural effusions and associated bibasilar atelectasis. Last Lab Results at Discharge: BUN: Lab Results Component Value Date BUN 23 10/22/2013 Creatinine: Lab Results Component Value Date CREATININE 0.79 10/22/2013 CBC: Lab Results Component Value Date WBC 8.15 10/22/2013 RBC 3.02* 10/22/2013 HGB 9.9* 10/22/2013 HCT 28.5* 10/22/2013 MCV 94 10/22/2013 MCH 32.8 10/22/2013 MCHC 34.8 10/22/2013 PLT 143 10/22/2013 DIFFTYPE Automated 10/22/2013 Electrolytes: Lab Results Component Value Date NA 135* 10/21/2013 K 4.1 10/22/2013 CL 99 10/21/2013 CO2 31 10/21/2013 Medication List START taking these medications acetaminophen 500 mg tablet Commonly known as: TYLENOL Take 1-2 Tabs by mouth every 6 hours as needed for Pain or Fever (Give prn for mild pain or fever > 38.). * bisacodyl 10 mg suppository Commonly known as: DULCOLAX Place 1 Suppository rectally daily as needed for Other (constipation). * bisacodyl 5 mg EC tablet Commonly known as: DULCOLAX Take 1 Tab by mouth daily as needed for Constipation. docusate sodium 100 mg capsule Commonly known as: COLACE Take 1 Cap by mouth 2 times daily. furosemide 20 mg tablet Commonly known as: LASIX Take 2 Tabs by mouth daily for 14 days. HYDROmorphone 2 mg tablet Commonly known as: DILAUDID Take 1-2 Tabs by mouth every 3 hours as needed for Pain. magnesium hydroxide 400 mg/5 mL suspension Commonly known as: MILK OF MAGNESIA Take 30 mL by mouth daily as needed for Other (constipation). metoprolol 50 mg tablet Commonly known as: LOPRESSOR Take 1 Tab by mouth 2 times daily for 90 days. PEG 3350-Electrolytes 17 gram packet Commonly known as: MIRALAX Take 17 g by mouth daily. potassium chloride SA 20 mEq tablet Commonly known as: K-DUR, KLOR-CON M20 Take 1 Tab by mouth daily for 14 days. senna 8.6 mg tablet Commonly known as: SENOKOT Take 1 Tab by mouth at bedtime. sodium phosphate 19-7 gram/118 mL enema Commonly known as: FLEET Place 1 Enema rectally daily as needed for Other (constipation). * Notice: This list has 2 medication(s) that are the same as other medications prescribed for you. Read the directions carefully, and ask your doctor or other care provider to review them with you. CONTINUE taking these medications aspirin 81 mg EC tablet atorvastatin 20 mg tablet Commonly known as: LIPITOR ibuprofen 200 mg tablet Commonly known as: MOTRIN STOP taking these medications Chlorhexidine Gluconate 2 % Liquid lisinopril 20 mg tablet Commonly known as: PRINIVIL, ZESTRIL mupirocin calcium 2 % nasal ointment Commonly known as: BACTROBAN Where to Get Your Medications These are the prescriptions that you need to picker and sorter load and unload. You may get the following medications from any pharmacy - acetaminophen 500 mg tablet - bisacodyl 10 mg suppository - bisacodyl 5 mg EC tablet - docusate sodium 100 mg capsule - furosemide 20 mg tablet - HYDROmorphone 2 mg tablet - magnesium hydroxide 400 mg/5 mL suspension - metoprolol 50 mg tablet - PEG 3350-Electrolytes 17 gram packet - potassium chloride SA 20 mEq tablet - senna 8.6 mg tablet - sodium phosphate 19-7 gram/118 mL enema cc: PCP: MD Matthew Hoang Michael G, MD Discharge Summary Completed: Mt Cannon MD 10/23/2013 19:07 Home Health [id number] Encounter: I certify that this patient is under my care and that I, or a Medicare authorized non-physician provider (MAIL CLERK or PA) working with me, had a [id number] encounter with this patient on 10/19/2013 that was in whole or in part related to the reason the patient needs home health care. The findings of this encounter indicate that the patient requires fci or therapist services for the reasons listed below. residential services: - are required to provide treatments and care safely and effectively Skilled therapist services: N/A Additionally, the findings of this encounter support that the patient is homebound because: - the patient requires the assistance of a person or device to safely leave home - post-surgical restrictions or conditions limit the patient's ability to leave home Mt Cannon MD 12/13/2013 3:48 documented in this encounter Medications at Time of Discharge Medication Sig Dispensed Refills Start Date End Date acetaminophen (TYLENOL) 500 Take 1-2 Tabs by 0 mg tablet mouth every 6 hours as needed for Pain or Fever (Give prn for mild pain or fever > 38.). aspirin 81 mg EC tablet Take 81 mg by mouth every evening . 0 atorvastatin (LIPITOR) 20 Take 20 mg by 0 mg tabletIndications: mouth every hypercholesterolemia evening Indications: HYPERCHOLESTEROLEM IA. ibuprofen (MOTRIN) 200 mg Take 200 mg by 0 tablet mouth every evening. bisacodyl (DULCOLAX) [address] 1 0 4 11/24/2013 suppository Suppository rectally daily as needed for Other (constipation). bisacodyl (DULCOLAX) 5 mg Take 1 Tab by 0 014 11/24/2013 EC tablet mouth daily as needed for Constipation. docusate sodium (COLACE) Take 1 Cap by 0 10/22/19 14 11/24/2013 100 mg capsule mouth 2 times daily. furosemide (LASIX) 20 mg Take 2 Tabs by 28 Tab 0 014 11/05/2013 tablet mouth daily for 14 days. HYDROmorphone (DILAUDID) 2 Take 1-2 Tabs by 80 Tab 0 11/24/2013 mg tablet mouth every 3 hours as needed for Pain. magnesium hydroxide (MILK Take 30 mL by 0 014 11/24/2013 OF MAGNESIA) 400 mg/5 mL mouth daily as suspension needed for Other (constipation). metoprolol (LOPRESSOR) 50 Take 1 Tab by 60 Tab 2 014 01/20/2014 mg tablet mouth 2 times daily for 90 days. PEG 3350-Electrolytes Take 17 g by mouth 0 201311/24/2013 (MIRALAX) 17 gram packet daily. potassium chloride SA Take 1 Tab by 14 Tab 0 10/22/2013 11/05/2013 (K-DUR, KLOR-CON M20) 20 mouth daily for 14 mEq tablet days. senna (SENOKOT) 8.6 mg Take 1 Tab by 0 10/21/2013 11/24/2013 tablet mouth at bedtime. sodium phosphate (FLEET) Place 1 Enema 0 10/23/19 14 11/24/2013 19-7 gram/118 mL enema rectally daily as needed for Other (constipation). documented as of this encounter Ordered Prescriptions Prescription Sig Dispensed Refills Start Date End Date acetaminophen (TYLENOL) Take 1-2 Tabs by 0 2013 500 mg tablet mouth every 6 hours as needed for Pain or Fever (Give prn for mild pain or fever > 38.). potassium chloride SA Take 1 Tab by mouth 14 Tab 0 10/2211/05/2013 (K-DUR, KLOR-CON M20) 20 daily for 14 days. mEq tablet furosemide (LASIX) 20 mg Take 2 Tabs by mouth 28 Tab 0 0 10/22/2013 11/05/2013 tablet daily for 14 days. sodium phosphate (FLEET) Place 1 Enema 0 10/23/19 14 11/24/2013 19-7 gram/118 mL enema rectally daily as needed for Other (constipation). metoprolol (LOPRESSOR) Take 1 Tab by mouth 2 60 Tab 2 01/20/2014 50 mg tablet times daily for 90 days. HYDROmorphone (DILAUDID) Take 1-2 Tabs by 80 Tab 0 10/2211/24/2013 2 mg tablet mouth every 3 hours as needed for Pain. bisacodyl (DULCOLAX) 5 Take 1 Tab by mouth 0 10/0511/24/2013 mg EC tablet daily as needed for Constipation. senna (SENOKOT) 8.6 mg Take 1 Tab by mouth 0 10/0511/24/2013 tablet at bedtime. PEG 3350-Electrolytes Take 17 g by mouth 0 201311/24/2013 (MIRALAX) 17 gram packet daily. magnesium hydroxide Take 30 mL by mouth 0 014 11/24/2013 (MILK OF MAGNESIA) 400 daily as needed for mg/5 mL suspension Other (constipation). docusate sodium (COLACE) Take 1 Cap by mouth 2 0 10/21/2013 11/24/2013 100 mg capsule times daily. bisacodyl (DULCOLAX) [address] Place 1 Suppository 0 11/24/2013 mg suppository rectally daily as needed for Other (constipation). documented in this encounter Discharge Disposition Disposition Code Departure Means Destination Home or Self Care documented in this encounter Progress Notes Bianca Huang - 10/22/2013 9861 EDT CM discharge note Pt was discharged home today, accompanied by SO. Will have home health follow up at discharge. Pt comfortable with d/c plan. IM signed. Bianca Huang RN CM #[id number] Kourtney Mckeon RN - 10/22/2013 1214 EDT Discharge Note D - Patient ordered for discharge today. A - Patient given prescriptions, medication information sheets and After Visit Summary. Medication list, follow up appointments and care instructions reviewed with patient. IVs and ID band removed. Attempted call to [facility] twice, but no call back. Pt stated he was spoken to by while he was aninpatient today. R - Patient questions reviewed and addressed prior to discharge. Patient denied pain. Patient left the unit in a wheelchair in stable condition. No distress noted. 10/22/2013 12:14 Kourtney Nash RN Mt Venegas MD - 10/22/[address] Surgery Progress Note Admit Date: 10/19/2013 LOS: 3 days CC: Mitral valve insufficiency Subjective: 24-Hour Events: Converted back into NSR Subjective: walking, starting to eat more, + flatus, no nausea, no BM, feels ready Meds MAR Reviewed Objective: Vitals: Temp (24hrs), Av.5 ??C (97.7 ??F), Min:36.1 ??C (97 ??F), Max:36.8 ??C (98.2 ??F) Blood pressure 111/57, pulse 96, temperature 36.4 ??C (97.5 ??F), temperature source Tympanic, resp.rate 16, height 178 cm (70.08), weight 76.9 kg (169 lb 8.5 oz), SpO2 91.00%. Intake/Output Summary (Last 24 hours) at 10/22/13 0832 Last data filed at 10/22/13 0300 Gross per 24 hour Intake 1116.15 ml Output 1275 ml Net -158.85 ml I/O for Current Shift: Exam Gen: NAD, Alert, in bed Chest: CTAB, dec at bases bilaterally, sternum stable, incision c/d/i Cor: RRR Abd: Soft, nontender, nondistended, +bs Ext: WWP, no edema Data Review BUN/Cr/glu/ALT/AST/amyl/lip: 23/0.79/--/--/--/--/-- (10/22 544) Na/K/Cl/CO2: --/4.1/--/-- (10/22 544) WBC/Hgb/Hct/Plts: 8.15/9.9/28.5/143 (10/22 544) Assessment: Jorge Luis Sierra is a(n) 67 y.o. old male who was admitted for Mitral valve insufficiency on 10/19/2013. He is POD#3 s/p right mini-thoracotomy and mitral valve repair, annuloplasty. A fib, converted to NSR overnight, doing well, otherwise on pathway Plan: ?? Inc Lopressor 50 mg BID, d/c lisinopril ?? Goal SBP 100-120 ?? Cardiac diet ?? CXR, ekg ?? PRN ibuprofen ?? Po lasix, KCl ?? Bowel Rx ?? Home today Mt Cannon MD 10/22/2013 8:32 t Cannon MD - 10/21/[address] Surgery Progress Note Admit Date: 10/19/2013 LOS: 2 days CC: Mitral valve insufficiency Subjective: 24-Hour Events: Went into a fib this AM-before my exam, transferred from unit, CT removed Subjective: says he has no pain; hasn't walked, eating without problems, + flatus Meds MAR Reviewed Objective: Vitals: Temp (24hrs), Av.4 ??C (97.6 ??F), Min:36 ??C (96.8 ??F), Max:36.6 ??C (97.9 ??F) Blood pressure 99/73, pulse 84, temperature 36.5 ??C (97.7 ??F), temperature source Tympanic, resp. rate 16, height 178 cm (70.08), weight 79 kg (174 lb 2.6 oz), SpO2 93.00%. Intake/Output Summary (Last 24 hours) at 10/21/13 1346 Last data filed at 10/21/13 1128 Gross per 24 hour Intake 306.47 ml Output 850 ml Net -543.53 ml I/O for Current Shift: 10/21 0700 - 10/21 1459 In: - Out: 525 [Urine:525] Exam Gen: NAD, Alert, in bed Chest: CTAB, dec at bases bilaterally, sternum stable, incision c/d/i Cor: RRR-at time of exam Abd: Soft, nontender, nondistended Ext: WWP, no edema Data Review BUN/Cr/glu/ALT/AST/amyl/lip: 21/0.85/--/--/--/--/-- (10/20 0305) Na/K/Cl/CO2: 135/4.0/99/31 (10/21 0905) WBC/Hgb/Hct/Plts: 11.16/10.9/31.6/128 (10/20 0305) Assessment: Jorge Luis Sierra is a(n) 67 y.o. old male who was admitted for Mitral valve insufficiency on 10/19/2013. He is POD#2 s/p right mini-thoracotomy and mitral valve repair, annuloplasty. Now with A fib- working on rate control with beta blockade Plan: ?? Lopressor 25 mg BID ?? Goal SBP 100-120; can add lisinopril to achieve blood pressure goals ?? Cardiac diet ?? D/c cordis and mir ?? PRN ibuprofen ?? Po lasix, KCl ?? ambulate Mt Cannon MD 10/21/2013 13:46 Mei Martinez - 10/21/2013 1251 EDT The CM receive a telephone call from the patient's daughter stating he will reside with his significant other, which is next door to his daughter's house. The physical address is [address] [place] [address] in [place], [place]. The A liaison is aware. Mei Franz RN BSN [facility] #[id number] Mei Burnette - 10/20/2013 1540 EDT The CM met the patient. He requested home health services with the [place] home health agency. TheCM contacted the A liaison for fci services. The patient will reside with his daughterArchana Erazo at discharge at [place], [place]. The CM left a voicemail for the patient's daughter requesting the house number, and for her to contact me or the home health agency withthe information. Mei Franz RN [id number] Kourtney Mckeon RN - 10/20/2013 1352 EDT Admission Note D - This is a(n) 67 y.o. male who is being transferred from SICU. This is post- op day 1 for the patient. Patient is status-post cardiothoracic surgery. A - Vital signs taken. Patient oriented to unit and room. Call light and bed use reviewed. Call light within reach, bed placed in low position and table at bedside. Room is free of clutter. R - Continue to assess and monitor patient. 10/20/2013 13:53 Kourtney Nash RN Pollo Gutierrez RN - 10/20/2013 1111 EDT Case Management Assessment & Initial Discharge Plan Working Diagnosis/Presenting Problem: Valve repair Living Arrangements: Lives alone in [facility] on single slab, no steps into home. Functional Status (psychosocial and physical): Independent at home, access to walker and cane if needed, continues to drive, retired from [employer]. Social Supports: Will stay with daughter for a week at [facility] in [place], who is available 24 hr. Her home is a small step to enter with a bedroom on the first floor for him. Daughter is Archana Erazo H: [phone] Existing Community Resources: Has had HH in past for his who past away 2 yrs ago. He is open to if need be but feels he is doing very well currently. PCP is Maggie Lee MD. Advanced Directives/DPOA: Living will at home, daughter is DPOA Cultural/Spiritual Needs: Declined visit Insurance/Financial Needs: Medicare and [place] Serge[employer] for coverage. [facility] Transportation Needs: Daughter will transport home upon discharge. Patient Goals: No needs currently, feeling very good post surgery. Assessment and Discharge Care Plan: Patient will be discharged to daughter's home for a short stay. No other needs for discharge addressed. Pollo Diez 1098 Reba Oliveros RN - 10/20/2013 0913 EDT 900: pt. Assisted to the bed w/ minimal; assist, denies pain, ate breakfast, 1000: CT and Vwire removed by dr. Nova, pt. Tolerated procedure well 1030: report called to Tanner Oconnell . Nat Somers MD - 10/20/[address] Surgery Progress Note Admit Date: 10/19/2013 LOS: 1 day CC: Mitral valve insufficiency Subjective: 24-Hour Events: To OR for right mini-thoracotomy and mitral valve repair, annuloplasty Extubated Subjective: says he has no pain; hopes he can go home soon; no nausea or dyspnea Meds MAR Reviewed Objective: Vitals: Temp (24hrs), Av.5 ??C (97.7 ??F), Min:35.6 ??C (96.1 ??F), Max:37.2 ??C (99 ??F) Blood pressure 121/47, pulse 77, temperature 37.2 ??C (99 ??F), temperature source Oral, resp. rate 14, height 178 cm (70.08), weight 79 kg (174 lb 2.6 oz), SpO2 94.00%. Patient is on 1L Intake/Output Summary (Last 24 hours) at 10/20/13 0844 Last data filed at 10/20/13 0744 Gross per 24 hour Intake 348.58 ml Output 1315 ml Net -966.42 ml I/O for Current Shift: 10/20 0700 - 10/20 1459 In: 11 [I.V.:11] Out: 425 [Urine:400] Exam Gen: NAD, AOx3, sitting up in chair Chest: CTAB, sternum stable, incision c/d/i, CT w/serosang drainage & no airleak Cor: RRR Abd: Soft, nontender, nondistended Ext: WWP, no edema Data Review CBC: Lab Results Component Value Date WBC 11.16* 10/20/2013 RBC 3.37* 10/20/2013 HGB 10.9* 10/20/2013 HCT 31.6* 10/20/2013 MCV 94 10/20/2013 MCH 32.4 10/20/2013 MCHC 34.5 10/20/2013 PLT 128* 10/20/2013 BMP: Lab Results Component Value Date NA 139 10/20/2013 K 4.4 10/20/2013 CL 107 10/20/2013 CO2 25 10/20/2013 BUN 21 10/20/2013 CREATININE 0.85 10/20/2013 GLUCOSEFINGE 107* 10/20/2013 Assessment: Jorge Luis Sierra is a(n) 67 y.o. old male who was admitted for Mitral valve insufficiency on 10/19/2013. He is POD#1 s/p right mini-thoracotomy and mitral valve repair, annuloplasty. HD stable Plan: ?? D/c SLIC & A-line ?? F/u CXR, EKG ?? Lasix 20mg IV x1 now ?? Start Lopressor ?? Goal SBP 100-120; can add lisinopril to achieve blood pressure goals ?? Advance diet - cardiac ?? Transfer to floor ?? Add PRN ibuprofen NAT NOVA MD 10/20/2013 8:44 ADDENDUM Chest tube and wires removed by me. Pt tolerated the procedure well. NAT NOVA MD Raegan Cantu - 10/18/2013 1542 EDT Patient's labs MRSA Nasal Culture and A1C pending. The CT Surgery PA's and Resident MDS were made aware at this time to review results and change orders for abx if needed. Raegan Powell RN Raegan Cantu - 10/18/[address] Surgery Nursing Note 10/18/13 1200 The folllowing information was given at appt with Dr. Keating previously see DR. Keating note in Prism: I met with this patient briefly again today to review pre-op instructions. Pt verbalized understanding and pre-op chart delivered to the Pre-Op Center at this time. Surgical Procedure: MV Repair Replace Mini-Thoracotomy Surgical Procedure Date and Time: 10/19/13 0725 with 0600 check-in Surgeon:Dr. Keating Patient Education Topic: Cardiac Surgery Information Method: Demonstration, Handouts, Verbal, Video The following Information and Cardiac Surgery Patient Educational Information were given to the patient with review today: Review of Hospital Course and post-op pain management Inspirometer demonstrated and given for practice pre-operatively. Patient instructed to use daily for practice and to use every 1-2 Hours 10 cycles each time post-operatively Valve Description Booklet (Tissue Chaidez Valve ) given for review. Valve types with risks and longevity information and consent reviewed by Surgeon Antibiotic Prophylaxis Handout [employer] for Prevention of Infective Bacterial Endocarditis given and reviewed Preoperative Instructions (also documented in Prism) Recovering at Home Following Your Heart Surgery Addendum Handout (with updates) to read prior to viewing Discharge Video Recovering at Home Following Your Heart Surgery DVD Bra Instruction Handout for Female Cardiac Nutrition Basics How to Manage your Stress Resource Center Handout Web Site Listing Handout Bed Bug Prevention Handout Blood Pressure Handout Lodging List Physical Activity for the Patient Following Cardiac Surgery Handout Smoking Information Handout Hibiclens Soap x 2 bottles with instructions. Pt to start Bactroban today as Per skin instruction guidelines. 10 lb sternotomy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 position and the aortic cross clamp was removed. He entered to sinus rhythm where he remained throughout the remainder of the case. A period of rewarming and resuscitation ensued. Right ventricular pacing lead was placed inferiorly. After an adequate period of rewarming and resuscitation, several de-airing maneuvers were performed as guided by TE echo to de-air the left-sided chambers. There was very little air in the chambers as the field had been flooded with carbon dioxide during the case. The patient was now weaned from cardiopulmonary bypass without difficulty and transesophageal echo revealed a good repair without leak. There was some air that was not earlier seen and this was ejected and it went down the patient's right coronary artery causing some ST elevation and a moderate amount ofdysfunction of the right ventricle. Therefore, cardiopulmonary bypass was reinstituted for a short period of time. The patient was then weaned again without problems. Protamine was administered and he was decannulated without issue. Right ventricular pacing lead was brought through the anterior right chest wall and a skin lead was placed. A 24-[place] drain was placed anteriorly. The ribs were now reapproximated with a pericostal suture and the muscle and subcutaneous tissues were closed with 0Vicryl, 2-0 Vicryl and then the skin was closed with 4-0 Monocryl. The patient brought back to the ICU in critical but stable condition. No complications. Unless otherwise noted, there were no complications, no blood loss, no cultures obtained, no specimens removed, and no drains retained. Choco Keating MD 01 06 PM / Choco Keating MD jn Confirmation: [id number] Dictation ID: [id number] Anesthesia Procedure Notes - LEAF STICKER, SCAN 2 - 10/19/2013 1258 EDT R PreOp - LEAF STICKER, SCAN 2 - 10/19/2013 1247 EDT R PreOp - LEAF STICKER, SCAN 2 - 10/19/2013 1230 EDT nesthesia Preprocedure Evaluation - LEAF STICKER, SCAN 2 - 10/19/2013 1201 EDT documented in this encounter Miscellaneous Notes Plan of Care - Barbara Bose, RN - 10/22/2013 0712 EDT Problem: CIRCULATORY STATUS Goal: Patient Has Stable Vital Signs And Fluid Balance Data: Pt now POD#3 s/p MVR with annuloplasty; a-fib 70s-80s overnight, BPs stable [id number] systolic Action: Medicate pt with scheduled PO 25mg lopressor Response: pt converted to sinus rhythm at approximately 0030, VS remained stable, HR 70s, Dr. Cannon aware this morning Barbara Bose RN 10/22/2013 7:22 lan of [facility] - Kourtney Yeung RN - 10/21/2013 1043 EDT Problem: FA FLUID AND ELECTROLYTE BALANCE Goal: Fluid And Electrolyte Balance Are Achieved/Maintained Data: POD #2 from MVR with mini-thoracotomy. Was in NSR with 1 degree AVB and went into a-fib into the 110's. Pt asymptomatic. Action: Paged Dr. Cannon to inform. Verbal ordered 5mg IVP metoprolol, labs and stat EKG. Response: Patient still asymptomatic. HR still in a-fib but now in the 70-80's. Call light within reach. Will continue to monitor. Kourtney Nash RN 10/21/2013 10:38 lan of Lyudmila Rosas - 10/21/2013 1037 EDT Problem: FA FLUID AND ELECTROLYTE BALANCE Goal: Fluid And Electrolyte Balance Are Achieved/Maintained Intervention: Assess/monitor intake and output Data: Pt.'s catheter removed @ 0830, want pt. to void by 1430. Action: Offered pt 480 cc water, encouraged to drink. Pt. tnderstands want to void by 1430. Response: Continue to monitor for urine output and encourage pt. to drink fluids. Lyudmila Alvarado 10/21/2013 10:35 lan of Radha Dior RN - 10/19/20132037 EDT Problem: CIRCULATORY STATUS Goal: Patient Has Stable Vital Signs And Fluid Balance Intervention: Assess rate, rhythm and regularity of pulses Including apical assessment for cardiology patients. Assumed patient care after bedside report at 1915. Patient in bed, resting. Denies any pain at this time. A&Ox3, pleasant. 2300&0000: UOP less than 30. Critical care, MD Malave was made aware. No intervention at this time. Patient has adequate BP. Will continue to monitor. 0210: Patient having some back pain, PRN medication given and repositioned in bed. SBP elevated in the high 140s and MAP in the mid-80s. Will allow patient to settle down in bed after repositioning. Ifcontinues to be elevated will notify Critical Care again. 0300: Patient continues with MAP in the 80s. Per MD Malave, will give a one time dose of labetalol. Labetalol was with good effect. 0600: OOB to chair; tolerated well. 0645: MD Nova placed orders for lasix, remove slic and a-line, and transfer to floor. Lasix was given and a-line removed at 0700. 0700: While removing A-line; patient reported some nausea and did vomit small amount shortly thereafter. PRN Zofran administered. Patient stated that he felt better and i'm okay after vomiting. V/SWNL. Patient sitting in the chair, watching T.V. Data: See flow sheet and notes. Action: SBP goal 90-150. Patient has not needed any BP support. Response: Will continue to monitor. Radha Vega RN 10/19/2013 20:37 lan of Care - Angela Copeland RN - 10/19/2013 1332 EDT Problem: CIRCULATORY STATUS Goal: Patient Has Stable Vital Signs And Fluid Balance Outcome: Ongoing Data: See flowsheet Action: 1300- Pt arrived from OR- VSS Report received- alarm parameters reviewed and set, assumed care of patient. PLAN- Continuously monitor hemodynamics, neurological, respiratory, GI/U status. Monitor and treat for pain and anxiety. Provide education and support for patient and family. Plan to wean for extu bation pending hemodynamic status. Response: Continue to monitor. Angela Copeland RN 10/19/2013 13:31 rief Op Note - Milton Cespedes PA - 10/19/2013 1235 EDT Cardiothoracic BRIEF OP NOTE Procedure: Right mini-thoracotomy Mitral valve repair, annuloplasty Pre-op diagnosis: MR Post-op diagnosis: same FOR CABG: [] RUDOLPH [] JEREMY [] Radial A. [] LAD [] LMA [] SVG [] Diag1 [] Diag2 [] Circumflex [] Ramus [] OM 1 [] OM 2 [] PDA [] RCA [] Marginal FOR VALVES: [] Aortic Valve [] Repair [] Bovine Valve [] St. Dino Valve [x] Mitral Valve [x] Repair annuloplasty ring 32 mm, quadrangular resection [] Bovine Valve [] St. Dino Valve Indication: MR Surgeon: [] MD Jose [] MD Garrett [] MD Madeleine [x] MD Rishabh Flight Attendant Ramp: [x] EDUARDO Cespedes [] EDUARDO Howard [] Other Anesth: GET Findings: Ruptured P2 FLUIDS: Blood Products Crystalloid UOP 1100 cc pump blood [] PRBC [] FFP [] Platelets anesthesia cc LR anesthesia cc Pump Time: 96+7=103 min Clamp Time: 61 min Low Temps: myocardial n/a Systemic 29 Material Retained: Chest Tube(s) Wires: Currently Pacing: [x] Mir [x] Cordis [] SWAN [x] A-Line [] IABP [x] Mediastinal [] Left pleural [] Right pleural [] atrial [x] ventricular [] both [] yes [x] no Specimen: P2 of posterior leaflet cultures: none Complications: none Dispo: to SICU, intubated documented in this encounter Plan of Treatment Scheduled Referrals Name Type Priority Associated Diagnoses Order S chedule PROVIDER FOLLOW-UP Outpatient Routine Ordered: INSTRUCTIONS Referral 10/21/2013 PROVIDER FOLLOW-UP Outpatient Routine Ordered: INSTRUCTIONS Referral 10/21/2013 PROVIDER FOLLOW-UP Outpatient Routine Ordered: INSTRUCTIONS Referral 10/21/2013 PROVIDER FOLLOW-UP Outpatient Routine Ordered: INSTRUCTIONS Referral 10/21/2013 PROVIDER FOLLOW-UP Outpatient Routine Ordered: INSTRUCTIONS Referral 10/21/2013 PROVIDER FOLLOW-UP Outpatient Routine Ordered: INSTRUCTIONS Referral 10/21/2013 FROM IP - AMB Outpatient Routine Mitral valve Ordered: CONS/FOLLOW UP HOME Referral insufficiency 014 [facility] documented as of this encounter Procedures Procedure Name Priority Date/Time Associated Comments Diagnosis INVASIVE CARDIOLOGY 07/19/2015 14:02 REPORT-SCANNED EST ECG REPORT - SCANNED 11/05/2013 10:18 EDT ECG REPORT - SCANNED 10/28/2013 8:11 EDT IMPLANT RECORD - SCANNED 10/28/2013 8:11 EDT ECG REPORT - SCANNED 10/28/2013 8:11 EDT ECG REPORT - SCANNED 10/27/2013 15:11 EDT ECG REPORT - SCANNED 10/26/2013 18:53 EDT ECG REPORT - SCANNED 10/26/2013 18:53 EDT EKG 12-LEAD Routine 10/22/2013 9:37 Results for this EDT procedure are i n the results section. CHEST PA AND LATERAL Routine 10/22/2013 8:53 Resu lts for this EDT procedure are i n the results section. GLUCOSE, GLUCOMETER Routine 10/22/2013 7:28 Resul ts for this EDT procedure are i n the results section. GLUCOSE, GLUCOMETER Routine 10/22/2013 6:16 Resul ts for this EDT procedure are i n the results section. DIFFERENTIAL Routine 10/22/2013 5:45 Results for this EDT procedure are i n the results section. COMPLETE BLOOD COUNT Routine 10/22/2013 5:45 Resu lts for this EDT procedure are i n the results section. COMPLETE BLOOD COUNT AND Routine 10/22/2013 5:45 DIFFERENTIAL EDT BUN Routine 10/22/2013 5:45 Results for this EDT procedure are i n the results section. POTASSIUM Routine 10/22/2013 5:45 Results for this EDT procedure are i n the results section. CREATININE Routine 10/22/2013 5:45 Results for this EDT procedure are i n the results section. GLUCOSE, GLUCOMETER Routine 10/22/2013 4:05 Resul ts for this EDT procedure are i n the results section. GLUCOSE, GLUCOMETER Routine 10/22/2013 2:11 Resul ts for this EDT procedure are i n the results section. GLUCOSE, GLUCOMETER Routine 10/22/2013 0:11 Resul ts for this EDT procedure are i n the results section. GLUCOSE, GLUCOMETER Routine 10/21/2013 22:06 Resu lts for this EDT procedure are i n the results section. GLUCOSE, GLUCOMETER Routine 10/21/2013 20:07 Resu lts for this EDT procedure are i n the results section. GLUCOSE, GLUCOMETER Routine 10/21/2013 18:57 Resu lts for this EDT procedure are i n the results section. GLUCOSE, GLUCOMETER Routine 10/21/2013 17:52 Resu lts for this EDT procedure are i n the results section. GLUCOSE, GLUCOMETER Routine 10/21/2013 16:35 Resu lts for this EDT procedure are i n the results section. GLUCOSE, GLUCOMETER Routine 10/21/2013 15:23 Resu lts for this EDT procedure are i n the results section. GLUCOSE, GLUCOMETER Routine 10/21/2013 14:34 Resu lts for this EDT procedure are i n the results section. GLUCOSE, GLUCOMETER Routine 10/21/2013 13:07 Resu lts for this EDT procedure are i n the results section. GLUCOSE, GLUCOMETER Routine 10/21/2013 12:12 Resu lts for this EDT procedure are i n the results section. GLUCOSE, GLUCOMETER Routine 10/21/2013 10:54 Resu lts for this EDT procedure are i n the results section. GLUCOSE, GLUCOMETER Routine 10/21/2013 10:05 Resu lts for this EDT procedure are i n the results section. PHOSPHORUS STAT 10/21/2013 9:05 Results for this EDT procedure are i n the results section. MAGNESIUM STAT 10/21/2013 9:05 Results for this EDT procedure are i n the results section. CALCIUM STAT 10/21/2013 9:05 Results for this EDT procedure are i n the results section. ELECTROLYTES STAT 10/21/2013 9:05 Results for this EDT procedure are i n the results section. EKG 12-LEAD STAT 10/21/2013 9:03 Results for this EDT procedure are i n the results section. GLUCOSE, GLUCOMETER Routine 10/21/2013 8:11 Resul ts for this EDT procedure are i n the results section. GLUCOSE, GLUCOMETER Routine 10/21/2013 6:10 Resul ts for this EDT procedure are i n the results section. GLUCOSE, GLUCOMETER Routine 10/21/2013 3:59 Resul ts for this EDT procedure are i n the results section. GLUCOSE, GLUCOMETER Routine 10/21/2013 2:12 Resul ts for this EDT procedure are i n the results section. GLUCOSE, GLUCOMETER Routine 10/20/2013 23:57 Resu lts for this EDT procedure are i n the results section. GLUCOSE, GLUCOMETER Routine 10/20/2013 22:06 Resu lts for this EDT procedure are i n the results section. GLUCOSE, GLUCOMETER Routine 10/20/2013 21:00 Resu lts for this EDT procedure are i n the results section. GLUCOSE, GLUCOMETER Routine 10/20/2013 18:58 Resu lts for this EDT procedure are i n the results section. GLUCOSE, GLUCOMETER Routine 10/20/2013 17:26 Resu lts for this EDT procedure are i n the results section. GLUCOSE, GLUCOMETER Routine 10/20/2013 15:22 Resu lts for this EDT procedure are i n the results section. ORDERS - SCANNED 10/20/2013 14:37 EDT GLUCOSE, GLUCOMETER Routine 10/20/2013 13:24 Resu lts for this EDT procedure are i n the results section. GLUCOSE, GLUCOMETER Routine 10/20/2013 12:22 Resu lts for this EDT procedure are i n the results section. GLUCOSE, GLUCOMETER Routine 10/20/2013 10:21 Resu lts for this EDT procedure are i n the results section. PATHOLOGY - SCANNED 10/20/2013 8:15 EDT GLUCOSE, GLUCOMETER Routine 10/20/2013 8:11 Resul ts for this EDT procedure are i n the results section. PORTABLE CHEST 1 VIEW Routine 10/20/2013 7:01 Res ults for this EDT procedure are i n the results section. GLUCOSE, GLUCOMETER Routine 10/20/2013 6:00 Resul ts for this EDT procedure are i n the results section. GLUCOSE, GLUCOMETER Routine 10/20/2013 4:59 Resul ts for this EDT procedure are i n the results section. EKG 12-LEAD Routine 10/20/2013 4:23 Results for this EDT procedure are i n the results section. GLUCOSE, GLUCOMETER Routine 10/20/2013 3:59 Resul ts for this EDT procedure are i n the results section. COMPLETE BLOOD COUNT Routine 10/20/2013 3:05 Resu lts for this EDT procedure are i n the results section. BUN Routine 10/20/2013 3:05 Results for this EDT procedure are i n the results section. CREATININE Routine 10/20/2013 3:05 Results for this EDT procedure are i n the results section. ELECTROLYTES Routine 10/20/2013 3:05 Results for this EDT procedure are i n the results section. GLUCOSE, GLUCOMETER Routine 10/20/2013 3:03 Resul ts for this EDT procedure are i n the results section. GLUCOSE, GLUCOMETER Routine 10/20/2013 2:00 Resul ts for this EDT procedure are i n the results section. GLUCOSE, GLUCOMETER Routine 10/20/2013 0:58 Resul ts for this EDT procedure are i n the results section. RESPIRATORY CARE Routine 10/20/2013 0:06 EVALUATION ONLY EDT GLUCOSE, GLUCOMETER Routine 10/20/2013 0:00 Resul ts for this EDT procedure are i n the results section. GLUCOSE, GLUCOMETER Routine 10/19/2013 22:59 Resu lts for this EDT procedure are i n the results section. GLUCOSE, GLUCOMETER Routine 10/19/2013 22:06 Resu lts for this EDT procedure are i n the results section. GLUCOSE, GLUCOMETER Routine 10/19/2013 21:05 Resu lts for this EDT procedure are i n the results section. ELECTROLYTES Routine 10/19/2013 20:32 Results for this EDT procedure are i n the results section. GLUCOSE, GLUCOMETER Routine 10/19/2013 20:03 Resu lts for this EDT procedure are i n the results section. GLUCOSE, GLUCOMETER Routine 10/19/2013 19:02 Resu lts for this EDT procedure are i n the results section. COMPLETE BLOOD COUNT Routine 10/19/2013 19:00 Res ults for this EDT procedure are i n the results section. GLUCOSE, GLUCOMETER Routine 10/19/2013 17:54 Resu lts for this EDT procedure are i n the results section. EXTUBATION Routine 10/19/2013 17:23 EDT RESPIRATORY CARE Routine 10/19/2013 17:19 EVALUATION ONLY EDT GLUCOSE, GLUCOMETER Routine 10/19/2013 17:18 Resu lts for this EDT procedure are i n the results section. GLUCOSE, GLUCOMETER Routine 10/19/2013 16:13 Resu lts for this EDT procedure are i n the results section. GLUCOSE, GLUCOMETER Routine 10/19/2013 15:12 Resu lts for this EDT procedure are i n the results section. SURGICAL PATHOLOGY Routine 10/19/2013 14:59 Resul ts for this EDT procedure are i n the results section. GLUCOSE, GLUCOMETER Routine 10/19/2013 13:55 Resu lts for this EDT procedure are i n the results section. ZZBLOOD GAS, G3 ISTAT Routine 10/19/2013 13:38 Re sults for this EDT procedure are i n the results section. PORTABLE CHEST PA CENTRAL STAT 10/19/2013 13:37 Results for this LINE/PICC/ET TUBE,INITIAL EDT pr ocedure are in INSERTION the results section. EKG 12-LEAD Routine 10/19/2013 13:37 Results for this EDT procedure are i n the results section. COMPLETE BLOOD COUNT Routine 10/19/2013 12:55 Res ults for this EDT procedure are i n the results section. POTASSIUM Routine 10/19/2013 12:55 Results for this EDT procedure are i n the results section. MRSA PCR Routine 10/19/2013 12:48 Results for this EDT procedure are i n the results section. GLUCOSE, GLUCOMETER Routine 10/19/2013 12:46 Resu lts for this EDT procedure are i n the results section. BLOOD GAS, CG8 ISTAT Routine 10/19/2013 11:41 Res ults for this EDT procedure are i n the results section. ACT, CELITE ISTAT Routine 10/19/2013 11:41 Result s for this EDT procedure are i n the results section. BLOOD GAS, CG8 ISTAT Routine 10/19/2013 11:12 Res ults for this EDT procedure are i n the results section. BLOOD GAS, CG8 ISTAT Routine 10/19/2013 10:53 Res ults for this EDT procedure are i n the results section. ACT, CELITE ISTAT Routine 10/19/2013 10:52 Result s for this EDT procedure are i n the results section. BLOOD GAS, CG8 ISTAT Routine 10/19/2013 10:25 Res ults for this EDT procedure are i n the results section. BLOOD GAS, CG8 ISTAT Routine 10/19/2013 10:02 Res ults for this EDT procedure are i n the results section. ACT, CELITE ISTAT Routine 10/19/2013 10:02 Result s for this EDT procedure are i n the results section. ACT, CELITE ISTAT Routine 10/19/2013 9:17 Results for this EDT procedure are i n the results section. BLOOD GAS, CG8 ISTAT Routine 10/19/2013 8:49 Resu lts for this EDT procedure are i n the results section. ACT, CELITE ISTAT Routine 10/19/2013 8:48 Results for this EDT procedure are i n the results section. PORTABLE CHEST 1 VIEW Routine 10/19/2013 8:24 Res ults for this EDT procedure are i n the results section. THROMBELASTOGRAPH Routine 10/19/2013 7:46 Results for this EDT procedure are i n the results section. BUN STAT 10/19/2013 7:23 Results for this EDT procedure are i n the results section. CREATININE STAT 10/19/2013 7:23 Results for this EDT procedure are i n the results section. ANESTH TRANSESOPHAGEAL Routine 10/19/2013 7:20 Re sults for this ECHO EDT procedure are i n the results section. documented in this encounter Results EKG 12-LEAD (10/22/2013 9:37 EDT) Specimen Narrative [facility] EKG - 10/26/2013 12:38 EDT ?[facility] ? Test Date: ?2013-10-22 Pat Name: ? JORGE LUIS SIERRA ? Department: ?? [address] ? Room: ? SB377 Gender: ? M ?[place] On: ?? [id number] : ?1945 ? Requested By: MILTON HOWARD PA Order Number: [id number] ? Mike MD: ?? CHOCO DE LA GARZA MD ? Measurements Intervals ?[place] ? Rate: ? 70 ? P: ?41 NV: ? 232 ?QRS: ?19 QRSD: ? 90 ? T: ?18 QT: ? 369 ? QTc: ?400 ? Interpretive Statements SINUS RHYTHM WITH FIRST DEGREE AV BLOCK Compared to ECG 10/21/2013 09:03:03 Sinus rhythm now present First degree AV block now present I have reviewed the tracing and have eit her agreed or edited the findings in this report. Electronically Signed On 12:38:12 EDT by CHOCO DE LA GARZA MD. Procedure Note Choco De La Garza MD - 10/26/2013 [facility] Test Date: 2013-10-22 Pat Name: JORGE LUIS SIERRA Department: [address] Room: [facility] Gender: M [place] On: [id number] : 1945 Requested By: MILTON WORRELL PA Order Number: [id number] Reading MD: Eder DE LA GARZA MD Measurements Intervals [place] Rate: 70 P: 41 NV: 232 QRS: 19 QRSD: 90 T: 18 QT: 369 QTc: 400 Interpretive Statements SINUS RHYTHM WITH FIRST DEGREE AV BLOCK Compared to ECG 10/21/2013 09:03:03 Sinus rhythm now present First degree AV block now present I have reviewed the tracing and have eit her agreed or edited the findings in this report. Electronically Signed On 12:38:12 EDT by CHOCO DE LA GARZA MD. Performing Organization Address City/State/ZIP Code Phon e Number [facility] E[facility] EKG CHEST PA AND LATERAL (10/22/2013 8:53 EDT) Anatomical Region Laterality Modality Other Specimen Narrative [facility] - 10/22/2013 9:17 EDT CHEST PA AND LATERAL ??10/22/2013 8:53 AM Signs and Symptoms/Comments: ??Look for infiltrates, atelectasis, pleural effusions, pneumothorax 424.0 WI TRAL VALVE DISORDERS. Comparisons: 2 days prior. Dual-energy technique with reconstructio ns in normal, soft tissue and bone windows was used. PA and lateral vi ews were performed. Findings: There has been removal of all lines and tubes. The patient is status post recent mitral valve annuloplasty. T he cardiomedial silhouette and pulmonary vasculature are within nor mal limits. There are are small bilateral effusions and associated areas of bibasilar atelectasis, right greater than left. Th e lungs are otherwise clear. The bones are within normal limits for a ge. Impression: Small bilateral pleural effu sions and associated bibasilar atelectasis. Procedure Note 10/22/2013 CHEST PA AND LATERAL 10/22/2013 8:53 AM Signs and Symptoms/Comments: Look for in filtrates, atelectasis, pleural effusions, pneumothorax 424.0 WI TRAL VALVE DISORDERS. Comparisons: 2 days prior. Dual-energy technique with reconstructio ns in normal, soft tissue and bone windows was used. PA and lateral vi ews were performed. Findings: There has been removal of all lines and tubes. The patient is status post recent mitral valve annuloplasty. T he cardiomedial silhouette and pulmonary vasculature are within nor mal limits. There are are small bilateral effusions and associated areas of bibasilar atelectasis, right greater than left. Th e lungs are otherwise clear. The bones are within normal limits for a ge. Impression: Small bilateral pleural effu sions and associated bibasilar atelectasis. Performing Organization Address City/State/ZIP Code Phon e Number [facility] GLUCOSE, GLUCOMETER (10/22/2013 7:28 EDT) Glucose, 94 70 - 100 [facility] Fingerstick mg/dl LAB Baggage Agent ID [id number]: [facility] Test Performed by LAB Nursing Services Specimen Performing Organization Address City/State/ZIP Code Phon e Number [facility] [address] [place] [address] SERVICES [facility] [address] [place] [address] (ABNORMAL) GLUCOSE, GLUCOMETER (10/22/2013 6:16 EDT) Glucose, 107 (H) 70 - 100 [facility] Fingerstick mg/dl LAB Baggage Agent ID [id number]: [facility] Test Performed by LAB Nursing Services Specimen Performing Organization Address City/State/ZIP Code Phon e Number [facility] [address] [place] [address] SERVICES [facility] [address] [place] [address] DIFFERENTIAL (10/22/2013 5:45 EDT) Pathologist Sig nature Neutrophils 68.0 45.5 - 79.7 % [facility] Lymphocytes 22.7 15.0 - 46.8 % [facility] Monocytes 8.4 1.8 - 12.0 % [facility] Eosinophils 0.6 0.6 - 6.9 % [facility] Basophils 0.3 0.2 - 1.4 % [facility] ABS Neutrophils 5.55 2.20 - 8.85 K/cmm [facility] ABS Lymphs 1.85 1.09 - 3.30 K/cmm [facility] ABS Monocytes 0.69 0.1 - 0.8 K/cmm [facility] ABS Eosinophils 0.05 0.03 - 0.61 K/cmm [facility] ABS Basophils 0.02 0.01 - 0.11 K/cmm [facility] Type of Diff: Automated [facility] Specimen Performing Organization Address City/[facility] Phon e Number [facility] [address] [place] [address] SERVICES [facility] [address] [place] [address] (ABNORMAL) HEMAGRAM (10/22/2013 5:45 EDT) Pathologist Sig nature WBC 8.15 4.0 - 10.4 K/cmm [facility] RBC 3.02 (L) 4.36 - 5.78 M/cmm [facility] Hemoglobin 9.9 (L) 13.8 - 17.3 gm/dl [facility] HCT 28.5 (L) 39.5 - 50.2 % [facility] MCV 94 81 - 95 fl [facility] MCH 32.8 27.6 - 33.0 pg [facility] MCHC 34.8 32.8 - 36.4 gm/dl [facility] PLT 143 141 - 320 K/cmm [facility] RDW-CV 12.2 11.8 - 14.1 % [facility] Specimen Performing Organization Address City/[facility]/ZIP [facility] [facility] Phon e Number [facility] [address] [place] [address] SERVICES [facility] [address] [place] [address] CREATININE (10/22/2013 5:45 EDT) Pathologist Sig nature Creatinine 0.79 0.66 - 1.25 mg/dl [facility] GFR, Calculated >60 >60 ml/min/1.73m2 [facility] Specimen Blood specimen (specimen) Performing Organization Address City/[facility]/ZIP Code Phon e Number [facility] [address] [place] [address] SERVICES [facility] [address] [place] [address] BUN (10/22/2013 5:45 EDT) Pathologist Sig nature BUN 23 10 - 26 mg/dl [facility] Specimen Blood specimen (specimen) Performing Organization Address [facility] Phon e Number [facility] [address] [place] [address] SERVICES [facility] [address] [place] [address] POTASSIUM (10/22/2013 5:45 EDT) Pathologist Sig nature Potassium 4.1 3.5 - 5.0 mEq/L [facility] Specimen Blood specimen (specimen) Performing Organization Address [facility] Phon e Number [facility] [address] [place] [address] SERVICES [facility] [address] [place] [address] GLUCOSE, GLUCOMETER (10/22/2013 4:05 EDT) Glucose, 94 70 - 100 [facility] Fingerstick mg/dl LAB Baggage Agent ID [id number]: [facility] Test Performed by LAB Nursing Services Specimen Performing Organization Address [facility] Phon e Number [facility] [address] [place] [address] SERVICES [facility] [address] [place] [address] (ABNORMAL) GLUCOSE, GLUCOMETER (10/22/2013 2:11 EDT) Glucose, 111 (H) 70 - 100 [facility] Fingerstick mg/dl LAB Baggage Agent ID [id number]: [facility] Test Performed by LAB Nursing Services Specimen Performing Organization Address [facility] Phon e Number [facility] [address] [place] [address] SERVICES [facility] [address] [place] [address] GLUCOSE, GLUCOMETER (10/22/2013 0:11 EDT) Glucose, 87 70 - 100 [facility] Fingerstick mg/dl LAB Baggage Agent [place] [id number]: [facility] Test Performed by LAB Nursing Services Specimen Performing Organization Address City/[facility]/ZIP [facility] Phon e Number [facility] [address] [place] [address] SERVICES [facility] [address] [place] [address] (ABNORMAL) GLUCOSE, GLUCOMETER (10/21/2013 22:06 EDT) Glucose, 113 (H) 70 - 100 [facility] Fingerstick mg/dl LAB Baggage Agent [place] [id number]: [facility] Test Performed by LAB Nursing Services Specimen Performing Organization Address City/[facility]/ZIP Code Phon e Number [facility] [address] [place] [address] SERVICES [facility] [address] [place] [address] (ABNORMAL) GLUCOSE, GLUCOMETER (10/21/2013 20:07 EDT) Glucose, 170 (H) 70 - 100 [facility] Fingerstick mg/dl LAB Baggage Agent ID [id number]: [facility] Test Performed by LAB Nursing Services Specimen Performing Organization Address [facility]/ZIP [facility] Phon e Number [facility] [address] [place] [address] SERVICES [facility] [address] [place] [address] (ABNORMAL) GLUCOSE, GLUCOMETER (10/21/2013 18:57 EDT) Glucose, 154 (H) 70 - 100 [facility] Fingerstick mg/dl LAB Baggage Agent ID [id number]: [facility] Test Performed by LAB Nursing Services Specimen Performing Organization Address [facility]/ZIP Code Phon e Number [facility] [address] [place] [address] SERVICES [facility] [address] [place] [address] (ABNORMAL) GLUCOSE, GLUCOMETER (10/21/2013 17:52 EDT) Glucose, 176 (H) 70 - 100 [facility] Fingerstick mg/dl LAB Baggage Agent [place] [id number]: [facility] Test Performed by LAB Nursing Services Specimen Performing Organization Address City/[facility]/ZIP Code Phon e Number [facility] [address] [place] [address] SERVICES [facility] [address] [place] [address] GLUCOSE, GLUCOMETER (10/21/2013 16:35 EDT) Glucose, 80 70 - 100 [facility] Fingerstick mg/dl LAB Baggage Agent [place] [id number]: [facility] Test Performed by LAB Nursing Services Specimen Performing Organization Address City/State/ZIP Code Phon e Number [facility] [address] [place] [address] SERVICES [facility] [address] [place] [address] GLUCOSE, GLUCOMETER (10/21/2013 15:23 EDT) Glucose, 93 70 - 100 [facility] Fingerstick mg/dl LAB Baggage Agent ID [id number]: [facility] Test Performed by LAB Nursing Services Specimen Performing Organization Address City/State/ZIP Code Phon e Number [facility] [address] [place] [address] SERVICES [facility] [address] [place] [address] GLUCOSE, GLUCOMETER (10/21/2013 14:34 EDT) Glucose, 86 70 - 100 [facility] Fingerstick mg/dl LAB Baggage Agent [place] [id number]: [facility] Test Performed by LAB Nursing Services Specimen Performing Organization Address City/[facility]/ZIP Code Phon e Number [facility] [address] [place] [address] SERVICES [facility] [address] [place] [address] (ABNORMAL) GLUCOSE, GLUCOMETER (10/21/2013 13:07 EDT) Glucose, 108 (H) 70 - 100 [facility] Fingerstick mg/dl LAB Baggage Agent [place] [id number]: [facility] Test Performed by LAB Nursing Services Specimen Performing Organization Address City/State/ZIP Code Phon e Number [facility] [address] [place] [address] SERVICES [facility] [address] [place] [address] GLUCOSE, GLUCOMETER (10/21/2013 12:12 EDT) Glucose, 100 70 - 100 [facility] Fingerstick mg/dl LAB Baggage Agent [place] [id number]: [facility] Test Performed by LAB Nursing Services Specimen Performing Organization Address City/[facility]/ZIP Code Phon e Number [facility] [address] [place] [address] SERVICES [facility] [address] [place] [address] (ABNORMAL) GLUCOSE, GLUCOMETER (10/21/2013 10:54 EDT) Glucose, 115 (H) 70 - 100 [facility] Fingerstick mg/dl LAB Baggage Agent ID [id number]: [facility] Test Performed by LAB Nursing Services Specimen Performing Organization Address [facility] Phon e Number [facility] [address] [place] [address] SERVICES [facility] [address] [place] [address] (ABNORMAL) GLUCOSE, GLUCOMETER (10/21/2013 10:05 EDT) Glucose, 138 (H) 70 - 100 [facility] Fingerstick mg/dl LAB Baggage Agent [place] [id number]: [facility] Test Performed by LAB Nursing Services Specimen Performing Organization Address [facility] Phon e Number [facility] [address] [place] [address] SERVICES [facility] [address] [place] [address] (ABNORMAL) ELECTROLYTES (10/21/2013 9:05 EDT) Pathologist Sig nature Sodium 135 (L) 136 - 145 mEq/L [facility] Potassium 4.0 3.5 - 5.0 mEq/L [facility] Chloride 99 96 - 110 mEq/L [facility] CO2 31 24 - 32 mEq/L [facility] Specimen Blood specimen (specimen) Performing Organization Address [facility] Phon e Number [facility] [address] [place] [address] SERVICES [facility] [address] [place] [address] (ABNORMAL) CALCIUM (10/21/2013 9:05 EDT) Pathologist Sig nature Calcium 8.2 (L) 8.5 - 10.5 mg/dl [facility] Calculated Calcium 9.6 8.5 - 10.5 mg/dl [facility] Specimen Blood specimen (specimen) Performing Organization Address [facility] Phon e Number [facility] [address] [place] [address] SERVICES [facility] [address] [place] [address] MAGNESIUM (10/21/2013 9:05 EDT) Pathologist Sig nature Magnesium 1.9 1.7 - 2.8 mg/dl [facility] Specimen Blood specimen (specimen) Performing Organization Address City/[facility] Phon e Number [facility] [address] [place] [address] SERVICES [facility] [address] [place] [address] PHOSPHORUS (10/21/2013 9:05 EDT) Pathologist Sig nature Phosphorus 2.8 2.5 - 4.5 mg/dl [facility] Specimen Blood specimen (specimen) Performing Organization Address City/[facility] Code Phon e Number [facility] [address] [place] [address] SERVICES [facility] [address] [place] [address] EKG 12-LEAD (10/21/2013 9:03 EDT) Specimen Narrative [facility] EKG - 10/25/2013 8:51 EDT ?[facility] ? Test Date: ?2013-10-21 Pat Name: ? JORGE LUIS SIERRA ? Department: ?? [address] ? Room: ? SB377 Gender: ? M ?[place] On: ?? [id number] : ?1945 ? Requested By: MT CANNON MD Order Number: [id number] ? Mike BETANCOURT: ?? ESTUARDO PFEIFFER MD ? Measurements Intervals ?[place] ? Rate: ? 106 ?P: ? NV: ? 0 ?QRS: ?12 QRSD: ? 98 ? T: ?-25 QT: ? 323 ? QTc: ?429 ? Interpretive Statements ATRIAL FIBRILLATION WITH RAPID VENTRICUL AR RESPONSE WITH ABERRANT CONDUCTION OR VENTRICULAR PREMATURE COMP LEXES NONSPECIFIC T-WAVE ABNORMALITY ABNORMAL RHYTHM ECG Compared to ECG 10/20/2013 04:23:07 Atrial fibrillation now present T-wave abnormality now present I have reviewed the tracing and have eit her agreed or edited the findings in this report. Electronically Signed On 08:51:55 EDT by ESTUARDO PFEIFFER MD. Procedure Note Estuardo Pfeiffer MD - 10/25/2013 [facility] Test Date: 2013-10-21 Pat Name: JORGE LUIS SIERRA Department: [address] Room: 7 Gender: M Hooker On: [id number] : 1945 Requested By: MT MUNGUIA MD Order Number: [id number] Reading MD: Chary PFEIFFER MD Measurements Intervals [place] Rate: 106 P: NV: 0 QRS: 12 QRSD: 98 T: -25 QT: 323 QTc: 429 Interpretive Statements ATRIAL FIBRILLATION WITH RAPID VENTRICUL AR RESPONSE WITH ABERRANT CONDUCTION OR VENTRICULAR PREMATURE COMP LEXES NONSPECIFIC T-WAVE ABNORMALITY ABNORMAL RHYTHM ECG Compared to ECG 10/20/2013 04:23:07 Atrial fibrillation now present T-wave abnormality now present I have reviewed the tracing and have eit her agreed or edited the findings in this report. Electronically Signed On 08:51:55 EDT by ESTUARDO PFEIFFER MD. Performing Organization Address [facility] Code Phon e Number [facility] E[facility] (ABNORMAL) GLUCOSE, GLUCOMETER (10/21/2013 8:11 EDT) Glucose, 182 (H) 70 - 100 [facility] Fingerstick mg/dl LAB Baggage Agent ID [id number]: [facility] Test Performed by LAB Nursing Services Specimen Performing Organization Address [facility] Phon e Number [facility] [address] [place] [address] SERVICES [facility] [address] [place] [address] GLUCOSE, GLUCOMETER (10/21/2013 6:10 EDT) Glucose, 87 70 - 100 [facility] Fingerstick mg/dl LAB Baggage Agent ID [id number]: [facility] Test Performed by LAB Nursing Services Specimen Performing Organization Address [facility] Phon e Number [facility] [address] [place] [address] SERVICES [facility] [address] [place] [address] GLUCOSE, GLUCOMETER (10/21/2013 3:59 EDT) Glucose, 98 70 - 100 [facility] Fingerstick mg/dl LAB Baggage Agent ID [id number]: [facility] Test Performed by LAB Nursing Services Specimen Performing Organization Address [facility] Phon e Number [facility] [address] [place] [address] SERVICES [facility] [address] [place] [address] GLUCOSE, GLUCOMETER (10/21/2013 2:12 EDT) Glucose, 86 70 - 100 [facility] Fingerstick mg/dl LAB Baggage Agent [place] [id number]: [facility] Test Performed by LAB Nursing Services Specimen Performing Organization Address City/[facility]/ZIP [facility] Phon e Number [facility] [address] [place] [address] SERVICES [facility] [address] [place] [address] GLUCOSE, GLUCOMETER (10/20/2013 23:57 EDT) Glucose, 97 70 - 100 [facility] Fingerstick mg/dl LAB Baggage Agent ID [id number]: [facility] Test Performed by LAB Nursing Services Specimen Performing Organization Address [facility] Phon e Number [facility] [address] [place] [address] SERVICES [facility] [address] [place] [address] (ABNORMAL) GLUCOSE, GLUCOMETER (10/20/2013 22:06 EDT) Glucose, 134 (H) 70 - 100 [facility] Fingerstick mg/dl LAB Baggage Agent [place] [id number]: [facility] Test Performed by LAB Nursing Services Specimen Performing Organization Address [facility] Phon e Number [facility] [address] [place] [address] SERVICES [facility] [address] [place] [address] (ABNORMAL) GLUCOSE, GLUCOMETER (10/20/2013 21:00 EDT) Glucose, 150 (H) 70 - 100 [facility] Fingerstick mg/dl LAB Baggage Agent ID [id number]: [facility] Test Performed by LAB Nursing Services Specimen Performing Organization Address City/[facility]/ZIP Code Phon e Number [facility] [address] [place] [address] SERVICES [facility] [address] [place] [address] GLUCOSE, GLUCOMETER (10/20/2013 18:58 EDT) Glucose, 95 70 - 100 [facility] Fingerstick mg/dl LAB Baggage Agent [place] [id number]: [facility] Test Performed by LAB Nursing Services Specimen Performing Organization Address City/[facility]/ZIP Code Phon e Number [facility] [address] [place] [address] SERVICES [facility] [address] [place] [address] GLUCOSE, GLUCOMETER (10/20/2013 17:26 EDT) Glucose, 98 70 - 100 [facility] Fingerstick mg/dl LAB Baggage Agent ID [id number]: [facility] Test Performed by LAB Nursing Services Specimen Performing Organization Address [facility] Phon e Number [facility] [address] [place] [address] SERVICES [facility] [address] [place] [address] GLUCOSE, GLUCOMETER (10/20/2013 15:22 EDT) Glucose, 98 70 - 100 [facility] Fingerstick mg/dl LAB Baggage Agent ID [id number]: [facility] Test Performed by LAB Nursing Services Specimen Performing Organization Address [facility]/ZIP Code Phon e Number [facility] [address] [place] [address] SERVICES [facility] [address] [place] [address] (ABNORMAL) GLUCOSE, GLUCOMETER (10/20/2013 13:24 EDT) Glucose, 108 (H) 70 - 100 [facility] Fingerstick mg/dl LAB Baggage Agent ID [id number]: [facility] Test Performed by LAB Nursing Services Specimen Performing Organization Address [facility] Phon e Number [facility] [address] [place] [address] SERVICES [facility] [address] [place] [address] GLUCOSE, GLUCOMETER (10/20/2013 12:22 EDT) Glucose, 91 70 - 100 [facility] Fingerstick mg/dl LAB Baggage Agent ID [id number]: [facility] Test Performed by LAB Nursing Services Specimen Performing Organization Address [facility] Phon e Number [facility] [address] [place] [address] SERVICES [facility] [address] [place] [address] (ABNORMAL) GLUCOSE, GLUCOMETER (10/20/2013 10:21 EDT) Glucose, 132 (H) 70 - 100 [facility] Fingerstick mg/dl LAB Baggage Agent ID [id number]: [facility] Test Performed by LAB Nursing Services Specimen Performing Organization Address City/[facility]/ZIP Code Phon e Number [facility] [address] [place] [address] SERVICES [facility] [address] [place] [address] PATHOLOGY - SCANNED (10/20/2013 8:15 EDT) Specimen Narrative This result has an attachment that is no t available. (ABNORMAL) GLUCOSE, GLUCOMETER (10/20/2013 8:11 EDT) Glucose, 107 (H) 70 - 100 [facility] Fingerstick mg/dl LAB Baggage Agent ID [id number]: [facility] Test Performed by LAB Nursing Services Specimen Performing Organization Address [facility] Phon e Number [facility] [address] [place] [address] SERVICES [facility] [address] [place] [address] PORTABLE CHEST 1 VIEW (10/20/2013 7:01 EDT) Anatomical Region Laterality Modality Other Specimen Narrative [facility] - 10/20/2013 10:29 EDT PORTABLE CHEST 1 VIEW ??10/20/2013 7:01 AM Signs and Symptoms/Comments: chest pain, shortness of breath. Post-op day one. Comparison: 10/19/2013 (seventeen hours p rior) Findings: A single semiupright portable AP view of the chest demonstrates interval extubation and rem oval of a transesophageal tube. A right internal jugular catheter tip projects over the mid SVC. A mediastinal drain and epicardial leads remain in place. The patient is status post mitral valve marian loplasty. There has been mild interval increase in medial and left lateral bibasilar opacities, likely reflecting a telectasis. Mild hazy opacity of the right lower lung could reflect ea rly airspace disease versus layering effusion. No pneumothorax or pl eural effusion is visible but cannot be entirely excluded on the basis of this semiupright view. The pulmonary vasculature is normal and the cardiomediastinal silhouette is within normal limits allow ing for technique. The bones and soft tissues are unremarkable. Impression: 1. Interval extubation. 2. Increasing bibasilar atelectasis. 3. Nonspecific mild hazy opacity of the right lower lung may reflect some layering effusion versus some posto perative evolving atelectasis. ?? I have personally reviewed the images an d the above interpretation and agree with the findings. Procedure Note Jabier Bronson MD - 10/20/2013 PORTABLE CHEST 1 VIEW 10/20/2013 7:01 AM Signs and Symptoms/Comments: chest pain, shortness of breath. Post-op day one. Comparison: 10/19/2013 (seventeen hours p rior) Findings: A single semiupright portable AP view of the chest demonstrates interval extubation and rem oval of a transesophageal tube. A right internal jugular catheter tip projects over the mid SVC. A mediastinal drain and epicardial leads remain in place. The patient is status post mitral valve marian loplasty. There has been mild interval increase in medial and left lateral bibasilar opacities, likely reflecting a telectasis. Mild hazy opacity of the right lower lung could reflect ea rly airspace disease versus layering effusion. No pneumothorax or pl eural effusion is visible but cannot be entirely excluded on the basis of this semiupright view. The pulmonary vasculature is normal and the cardiomediastinal silhouette is within normal limits allow ing for technique. The bones and soft tissues are unremarkable. Impression: 1. Interval extubation. 2. Increasing bibasilar atelectasis. 3. Nonspecific mild hazy opacity of the right lower lung may reflect some layering effusion versus some posto perative evolving atelectasis. I have personally reviewed the images an d the above interpretation and agree with the findings. Performing Organization Address City/State/ZIP Code Phon e Number [facility] GLUCOSE, GLUCOMETER (10/20/2013 6:00 EDT) Glucose, 95 70 - 100 [facility] Fingerstick mg/dl LAB Baggage Agent [place] [id number]: [facility] Test Performed by LAB Nursing Services Specimen Performing Organization Address City/State/ZIP Code Phon e Number [facility] [address] [place] [address] SERVICES [facility] [address] [place] [address] GLUCOSE, GLUCOMETER (10/20/2013 4:59 EDT) Glucose, 88 70 - 100 [facility] Fingerstick mg/dl LAB Baggage Agent ID [id number]: [facility] Test Performed by LAB Nursing Services Specimen Performing Organization Address City/State/ZIP Code Phon e Number [facility] [address] [place] [address] SERVICES [facility] [address] [place] [address] EKG 12-LEAD (10/20/2013 4:23 EDT) Specimen Narrative [facility] EKG - 10/25/2013 8:53 EDT ?[facility] ? Test Date: ?2013-10-20 Pat Name: ? JORGE LUIS SIERRA ? Department: ?? [address] ? Room: ? M301 Gender: ? M ?Hooker On: ?? [id number] : ?1945 ? Requested By: MILTON CLARK Order Number: [id number] ? Mike BETANCOURT: ?? ESTUARDO PFEIFFER MD ? Measurements Intervals ?[place] ? Rate: ? 71 ? P: ?48 NV: ? 182 ?QRS: ?24 QRSD: ? 97 ? T: ?27 QT: ? 361 ? QTc: ?393 ? Interpretive Statements SINUS RHYTHM EARLY REPOLARIZATION Compared to ECG 10/19/2013 13:37:34 Sinus rhythm now present I have reviewed the tracing and have eit her agreed or edited the findings in this report. Electronically Signed On 08:53:43 EDT by ESTUARDO PFEIFFER MD. Procedure Note Estuardo Pfeiffer MD - 10/25/2013 [facility] Test Date: 2013-10-20 Pat Name: JORGE LUIS SIERRA Department: [place] [address] Room: [facility] Gender: M Hooker On: [id number] : 1945 Requested By: MILOTN CLARK Order Number: [id number] Reading MD: Chary PFEIFFER MD Measurements Intervals [place] Rate: 71 P: 48 NV: 182 QRS: 24 QRSD: 97 T: 27 QT: 361 QTc: 393 Interpretive Statements SINUS RHYTHM EARLY REPOLARIZATION Compared to ECG 10/19/2013 13:37:34 Sinus rhythm now present I have reviewed the tracing and have eit her agreed or edited the findings in this report. Electronically Signed On 08:53:43 EDT by ESTUARDO PFEIFFER MD. Performing Organization Address [facility]/ZIP Code Phon e Number [facility] E[facility] GLUCOSE, GLUCOMETER (10/20/2013 3:59 EDT) Glucose, 79 70 - 100 [facility] Fingerstick mg/dl LAB Baggage Agent ID [id number]: [facility] Test Performed by LAB Nursing Services Specimen Performing Organization Address [facility] Phon e Number [facility] [address] [place] [address] SERVICES [facility] [address] [place] [address] (ABNORMAL) HEMAGRAM (10/20/2013 3:05 EDT) Pathologist Sig nature WBC 11.16 (H) 4.0 - 10.4 K/cmm [facility] RBC 3.37 (L) 4.36 - 5.78 M/cmm [facility] Hemoglobin 10.9 (L) 13.8 - 17.3 gm/dl [facility] HCT 31.6 (L) 39.5 - 50.2 % [facility] MCV 94 81 - 95 fl [facility] MCH 32.4 27.6 - 33.0 pg [facility] MCHC 34.5 32.8 - 36.4 gm/dl [facility] PLT 128 (L) 141 - 320 K/cmm [facility] RDW-CV 12.5 11.8 - 14.1 % [facility] Specimen Blood specimen (specimen) Performing Organization Address [facility]/ZIP [facility] Phon e Number [facility] [address] [place] [address] SERVICES [facility] [address] [place] [address] CREATININE (10/20/2013 3:05 EDT) Pathologist Sig nature Creatinine 0.85 0.66 - 1.25 mg/dl [facility] GFR, Calculated >60 >60 ml/min/1.73m2 [facility] Specimen Blood specimen (specimen) Performing Organization Address [facility]/ZIP [facility] Phon e Number [facility] [address] [place] [address] SERVICES [facility] [address] [place] [address] BUN (10/20/2013 3:05 EDT) Pathologist Sig nature BUN 21 10 - 26 mg/dl [facility] Specimen Blood specimen (specimen) Performing Organization Address [facility] Phon e Number [facility] [address] [place] [address] SERVICES [facility] [address] [place] [address] ELECTROLYTES (10/20/2013 3:05 EDT) Pathologist Sig nature Sodium 139 136 - 145 mEq/L [facility] Potassium 4.4 3.5 - 5.0 mEq/L [facility] Chloride 107 96 - 110 mEq/L [facility] CO2 25 24 - 32 mEq/L [facility] Specimen Blood specimen (specimen) Performing Organization Address [facility] Phon e Number [facility] [address] [place] [address] SERVICES [facility] [address] [place] [address] GLUCOSE, GLUCOMETER (10/20/2013 3:03 EDT) Glucose, 83 70 - 100 [facility] Fingerstick mg/dl LAB Baggage Agent [place] [id number]: [facility] Test Performed by LAB Nursing Services Specimen Performing Organization Address [facility] Phon e Number [facility] [address] [place] [address] SERVICES [facility] [address] [place] [address] (ABNORMAL) GLUCOSE, GLUCOMETER (10/20/2013 2:00 EDT) Glucose, 101 (H) 70 - 100 [facility] Fingerstick mg/dl LAB Baggage Agent [place] [id number]: [facility] Test Performed by LAB Nursing Services Specimen Performing Organization Address [facility] Phon e Number [facility] [address] [place] [address] SERVICES [facility] [address] [place] [address] (ABNORMAL) GLUCOSE, GLUCOMETER (10/20/2013 0:58 EDT) Glucose, 126 (H) 70 - 100 [facility] Fingerstick mg/dl LAB Baggage Agent [place] [id number]: [facility] Test Performed by LAB Nursing Services Specimen Performing Organization Address City/[facility]/ZIP Code Phon e Number [facility] [address] [place] [address] SERVICES [facility] [address] [place] [address] GLUCOSE, GLUCOMETER (10/20/2013 0:00 EDT) Glucose, 95 70 - 100 [facility] Fingerstick mg/dl LAB Baggage Agent [place] [id number]: [facility] Test Performed by LAB Nursing Services Specimen Performing Organization Address City/[facility]/ZIP Code Phon e Number [facility] [address] [place] [address] SERVICES [facility] [address] [place] [address] (ABNORMAL) GLUCOSE, GLUCOMETER (10/19/2013 22:59 EDT) Glucose, 103 (H) 70 - 100 [facility] Fingerstick mg/dl LAB Baggage Agent [place] [id number]: [facility] Test Performed by LAB Nursing Services Specimen Performing Organization Address [facility] Phon e Number [facility] [address] [place] [address] SERVICES [facility] [address] [place] [address] (ABNORMAL) GLUCOSE, GLUCOMETER (10/19/2013 22:06 EDT) Glucose, 131 (H) 70 - 100 [facility] Fingerstick mg/dl LAB Baggage Agent ID [id number]: [facility] Test Performed by LAB Nursing Services Specimen Performing Organization Address [facility]/ZIP Code Phon e Number [facility] [address] [place] [address] SERVICES [facility] [address] [place] [address] (ABNORMAL) GLUCOSE, GLUCOMETER (10/19/2013 21:05 EDT) Glucose, 158 (H) 70 - 100 [facility] Fingerstick mg/dl LAB Baggage Agent ID [id number]: [facility] Test Performed by LAB Nursing Services Specimen Performing Organization Address City/[facility]/ZIP Code Phon e Number [facility] [address] [place] [address] SERVICES [facility] [address] [place] [address] ELECTROLYTES (10/19/2013 20:32 EDT) Pathologist Sig nature Sodium 138 136 - 145 mEq/L [facility] Potassium 4.4 3.5 - 5.0 mEq/L [facility] Chloride 105 96 - 110 mEq/L [facility] CO2 25 24 - 32 mEq/L [facility] Specimen Blood specimen (specimen) Performing Organization Address [facility] Phon e Number [facility] [address] [place] [address] SERVICES [facility] [address] [place] [address] (ABNORMAL) GLUCOSE, GLUCOMETER (10/19/2013 20:03 EDT) Glucose, 188 (H) 70 - 100 [facility] Fingerstick mg/dl LAB Baggage Agent [place] [id number]: [facility] Test Performed by LAB Nursing Services Specimen Performing Organization Address [facility] Phon e Number [facility] [address] [place] [address] SERVICES [facility] [address] [place] [address] (ABNORMAL) GLUCOSE, GLUCOMETER (10/19/2013 19:02 EDT) Glucose, 184 (H) 70 - 100 [facility] Fingerstick mg/dl LAB Baggage Agent [place] [id number]: [facility] Test Performed by LAB Nursing Services Specimen Performing Organization Address [facility] Phon e Number [facility] [address] [place] [address] SERVICES [facility] [address] [place] [address] (ABNORMAL) HEMAGRAM (10/19/2013 19:00 EDT) Pathologist Sig nature WBC 13.44 (H) 4.0 - 10.4 K/cmm [facility] RBC 3.55 (L) 4.36 - 5.78 M/cmm [facility] Hemoglobin 11.5 (L) 13.8 - 17.3 gm/dl [facility] HCT 33.2 (L) 39.5 - 50.2 % [facility] MCV 93 81 - 95 fl [facility] MCH 32.4 27.6 - 33.0 pg [facility] MCHC 34.6 32.8 - 36.4 gm/dl [facility] PLT 144 141 - 320 K/cmm [facility] RDW-CV 12.5 11.8 - 14.1 % [facility] Specimen Blood specimen (specimen) Performing Organization Address [facility] Code Phon e Number [facility] [address] [place] [address] SERVICES [facility] [address] [place] [address] (ABNORMAL) GLUCOSE, GLUCOMETER (10/19/2013 17:54 EDT) Glucose, 221 (H) 70 - 100 [facility] Fingerstick mg/dl LAB Baggage Agent [place] [id number]: [facility] Test Performed by LAB Nursing Services Specimen Performing Organization Address [facility] Phon e Number [facility] [address] [place] [address] SERVICES [facility] [address] [place] [address] (ABNORMAL) GLUCOSE, GLUCOMETER (10/19/2013 17:18 EDT) Glucose, 223 (H) 70 - 100 [facility] Fingerstick mg/dl LAB Baggage Agent [place] [id number]: [facility] Test Performed by LAB Nursing Services Specimen Performing Organization Address [facility] Phon e Number [facility] [address] [place] [address] SERVICES [facility] [address] [place] [address] (ABNORMAL) GLUCOSE, GLUCOMETER (10/19/2013 16:13 EDT) Glucose, 210 (H) 70 - 100 [facility] Fingerstick mg/dl LAB Baggage Agent [place] [id number]: [facility] Test Performed by LAB Nursing Services Specimen Performing Organization Address City/[facility]/ZIP Code Phon e Number [facility] [address] [place] [address] SERVICES [facility] [address] [place] [address] (ABNORMAL) GLUCOSE, GLUCOMETER (10/19/2013 15:12 EDT) Glucose, 214 (H) 70 - 100 [facility] Fingerstick mg/dl LAB Baggage Agent [place] [id number]: [facility] Test Performed by LAB Nursing Services Specimen Performing Organization Address City/[facility]/ZIP Code Phon e Number [facility] [address] [place] [address] SERVICES [facility] [address] [place] [address] SURGICAL PATHOLOGY (10/19/2013 14:59 EDT) Pathology Report: SURGICAL PATHOLOGY REPORT [facility] Reports generated via electronic interface contain doug ginal data; LAB however they are lacking the format of the original re port. Caution should be taken when reading/interpreting unfo rmatted reports. Name: ? JORGE LUIS SIERRA ? Accession #: ? [id number] ? : ? 1945 (Age: 67) ??M ? Collect Date: ? 10/19/2013 ? Location: ? [facility] ? Receive Date: ? 014 ? Provider: CHOCO KEATING MD Copy to: MAGGIE LEE MD ? 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 ??See com ment. Comment: This case was reviewed at intradepartmental consultati on conference. (Dr. Marie)/[facility] Document reviewed and electronically signed by: PAUL MARIE MD Report ??Date: 10/20/2013 16:57 By the signature above, the attending physician certif ies that he/she has personally conducted a gross and/or microscopic examin ation of the described specimens and rendered or confirmed the above diagnosi s. Specimen(s) Received: P2 leaflet Clinical History: Mitral valve insufficiency Gross Description: ? Received in normal saline labelled with proper patient identification (initials M, P) and A. P2 l eaflet is a 3.0 x 1.5 x 0.3 cm singh-white, smooth on one surface with singh-white projections on the opposing surface product of a mitral valve repair. ??The specimen is quadrisec cheng and submitted entirely as cassette [address] Yoder 10/19/2013 04:45 PM End of Report Specimen Performing Organization Address City/[facility]/ZIP Code Phon e Number [facility] [address] [place] [address] SERVICES [facility] [address] [place] [address] (ABNORMAL) GLUCOSE, GLUCOMETER (10/19/2013 13:55 EDT) Glucose, 215 (H) 70 - 100 [facility] Fingerstick mg/dl LAB Baggage Agent [place] [id number]: [facility] Test Performed by LAB Nursing Services Specimen Performing Organization Address [facility]/ZIP Code Phon e Number [facility] [address] [place] [address] SERVICES [facility] [address] [place] [address] BLOOD GAS, G3 ISTAT (10/19/2013 13:38 EDT) pH, i-STAT 7.37 7.35 - 7.45 [facility] pCO2, i-STAT 41 35 - 45 mmHg [facility] pO2, i-STAT 91 80 - 105 mmHg [facility] TCO2, i-STAT 25 mEq/L [facility] O2 Saturation 97 % [facility] Base Deficit, 2 [facility] i-STAT LAB Sample Type ARTERIAL [facility] combat systems operator ID [id number] [facility] Comment: LAB Test Performed by Respiratory For non-arterial reference ranges, please see ISTAT procedure. Specimen Performing Organization Address [facility]/ZIP Code Phon e Number [facility] [address] [place] [address] SERVICES [facility] [address] [place] [address] PORTABLE CHEST PA CENTRAL LINE/PICC/ET TUBE,INITIAL INSERTION (10/19/2013 13:37 EDT) Anatomical Region Laterality Modality Other Specimen Narrative [facility] - 10/19/2013 15:35 EDT PORTABLE CHEST 1 VIEW INITIAL LINE, ET INSERTION ??10/19/2013 1:37 PM Clinical History/Comments: Central line and ET tube placement, MR, s/p MV repair mini-thoracotomy. Findings: Comparison: 10/19/2013. Portable AP view of the chest shows rece nt mitral valve repair via a right minithoracotomy approach. ??The en dotracheal tube tip is in the left mainstem bronchus (dual lumen tube) . ??The transesophageal probe has been removed. ??There is a right int ernal jugular central line with tip in the mid SVC, and a gastric s ump tube enters the stomach, side port just beyond the GE junction. ? ?There is a right chest tube positioned adjacent to the right lateral costophrenic sulcus. ??The cardiac and the sternal contours are exp ected after cardiac surgery, and there is mild medial bibasilar atele ctasis and pulmonary vascular indistinctness. ??No pleural abnormaliti es are visible on this semiupright film. Procedure Note 10/19/2013 PORTABLE CHEST 1 VIEW INITIAL LINE, ET I NSERTION 10/19/2013 1:37 PM Clinical History/Comments: Central line and ET tube placement, MR, s/p MV repair mini-thoracotomy. Findings: Comparison: 10/19/2013. Portable AP view of the chest shows rece nt mitral valve repair via a right minithoracotomy approach. The endo tracheal tube tip is in the left mainstem bronchus (dual lumen tube) . The transesophageal probe has been removed. There is a right inter nal jugular central line with tip in the mid SVC, and a gastric s ump tube enters the stomach, side port just beyond the GE junction. T here is a right chest tube positioned adjacent to the right lateral costophrenic sulcus. The cardiac and the sternal contours are exp ected after cardiac surgery, and there is mild medial bibasilar atele ctasis and pulmonary vascular indistinctness. No pleural abnormalities are visible on this semiupright film. Performing Organization Address City/State/ZIP Code Phon e Number [facility] EKG 12-LEAD (10/19/2013 13:37 EDT) Specimen Narrative [facility] EKG - 11/04/2013 13:35 EDT ?[facility] ? Test Date: ?2013-10-19 Pat Name: ? JORGE LUIS SIERRA ? Department: ?? [facility] ? Room: ? M301 Gender: ? M ?[place] On: ?? [id number] : ?1945 ? Requested By: MILTON CESPEDES PA Order Number: [id number] ? Reading MD: ?? RILEY FORTUNE MD ? Measurements Intervals ?[place] ? Rate: ? 55 ? P: ?51 NV: ? 225 ?QRS: ?30 QRSD: ? 107 ?T: ?37 QT: ? 426 ? QTc: ?411 ? Interpretive Statements SINUS BRADYCARDIA WITH FIRST DEGREE AV B LOCK POSSIBLE ANTERIOR MYOCARDIAL INFARCTION, OF INDETERMINATE AGE POSSIBLE INFERIOR MYOCARDIAL INFARCTION, PROBABLY OLD Compared to ECG 10/18/2013 07:08:56 Sinus bradycardia now present I have reviewed the tracing and have eit her agreed or edited the findings in this report. Electronically Signed On 13:35:26 EDT by RILEY FORTUNE MD. Procedure Note Riley Fortune MD - 11/04/2013 [facility] Test Date: 2013-10-19 Pat Name: JORGE LUIS SIERRA Department: [place] [address] Room: [facility] Gender: M Hooker On: [id number] : 1945 Requested By: MILTON CLARK Order Number: [id number] Mike MD: Frank FORTUNE MD Measurements Intervals [place] Rate: 55 P: 51 NV: 225 QRS: 30 QRSD: 107 T: 37 QT: 426 QTc: 411 Interpretive Statements SINUS BRADYCARDIA WITH FIRST DEGREE AV B LOCK POSSIBLE ANTERIOR MYOCARDIAL INFARCTION, OF INDETERMINATE AGE POSSIBLE INFERIOR MYOCARDIAL INFARCTION, PROBABLY OLD Compared to ECG 10/18/2013 07:08:56 Sinus bradycardia now present I have reviewed the tracing and have eit her agreed or edited the findings in this report. Electronically Signed On 13:35:26 EDT by RILEY FORTUNE MD. Performing Organization Address City/State/ZIP Code Phon e Number [facility] E[facility] EKG (ABNORMAL) HEMAGRAM (10/19/2013 12:55 EDT) [facility] WBC 9.73 4.0 - 10.4 K/cmm [facility] RBC 3.38 (L) 4.36 - 5.78 M/cmm [facility] Hemoglobin 10.8 (L) 13.8 - 17.3 gm/dl [facility] HCT 32.1 (L) 39.5 - 50.2 % [facility] MCV 95 81 - 95 fl [facility] MCH 32.1 27.6 - 33.0 pg [facility] MCHC 33.8 32.8 - 36.4 gm/dl [facility] PLT 118 (L) 141 - 320 K/cmm [facility] RDW-CV 12.3 11.8 - 14.1 % [facility] Specimen Blood specimen (specimen) Performing Organization Address [facility] Phon e Number [facility] [address] [place] [address] SERVICES [facility] [address] [place] [address] POTASSIUM (10/19/2013 12:55 EDT) Pathologist Sig nature Potassium 4.2 3.5 - 5.0 mEq/L [facility] Specimen Blood specimen (specimen) Performing Organization Address [facility]/ZIP [facility] Phon e Number [facility] [address] [place] [address] SERVICES [facility] [address] [place] [address] MRSA MOLECULAR DETECTION (10/19/2013 12:48 EDT) Specimen Nasal [facility] Description LAB Result No Staphylococcus [facility] aureus detected by LAB PCR. Specimen Other (qualifier value) - Other Performing Organization Address [facility]/ZIP [facility] Phon e Number [facility] [address] [place] [address] SERVICES [facility] [address] [place] [address] (ABNORMAL) GLUCOSE, GLUCOMETER (10/19/2013 12:46 EDT) Glucose, 223 (H) 70 - 100 [facility] Fingerstick mg/dl LAB Baggage Agent [place] [id number]: [facility] Test Performed by LAB Nursing Services Specimen Performing Organization Address [facility] Phon e Number [facility] [address] [place] [address] SERVICES [facility] [address] [place] [address] (ABNORMAL) BLOOD GAS, CG8 ISTAT (10/19/2013 11:41 EDT) pH, i-STAT 7.31 (L) 7.35 - 7.45 [facility] pCO2, i-STAT 44 35 - 45 mmHg [facility] pO2, i-STAT 116 (H) 80 - 105 mmHg [facility] TCO2, i-STAT 23 mEq/L [facility] O2 Saturation 98 % [facility] Sodium, i-STAT 137 136 - 145 [facility] mEq/L LAB Potassium, i-STAT 4.3 3.5 - 5.0 [facility] mEq/L LAB Glucose, I-STAT 197 (H) 70 - 100 [facility] mg/dl LAB Hematocrit,iSTAT 28 (L) 39.5 - 50.2 % [facility] Calcium, Ionized 1.41 (H) 1.12 - 1.32 [facility] mmol/L LAB Base Deficit, 4 [facility] i-STAT LAB Sample Type NOT GIVEN [facility] combat systems operator ID [id number] [facility] Comment: LAB Test performed by Perfusion For non-arterial reference ranges, please see ISTAT procedure. Specimen Performing Organization Address City/[facility]/ZIP Code Phon e Number [facility] [address] [place] [address] SERVICES [facility] [address] [place] [address] ACT, CELITE ISTAT (10/19/2013 11:41 EDT) Activated Clotting 119 [facility] Time Tech ID [id number] [facility] Comment: Test performed by Perfusion Baseline ref range is less than or equal to 145 second s For non baseline ref ranges see procedure. Specimen Performing Organization Address City/State/ZIP Code Phon e Number [facility] [address] [place] [address] SERVICES [facility] [address] [place] [address] (ABNORMAL) BLOOD GAS, CG8 ISTAT (10/19/2013 11:12 EDT) pH, i-STAT 7.44 7.35 - 7.45 [facility] pCO2, i-STAT 33 (L) 35 - 45 mmHg [facility] pO2, i-STAT 41 (L) 80 - 105 mmHg [facility] TCO2, i-STAT 24 mEq/L [facility] O2 Saturation 79 % [facility] Sodium, i-STAT 134 (L) 136 - 145 [facility] mEq/L LAB Potassium, i-STAT 6.1 (HH) 3.5 - 5.0 [facility] mEq/L LAB Glucose, I-STAT 219 (H) 70 - 100 [facility] mg/dl LAB Hematocrit,iSTAT 31 (L) 39.5 - 50.2 % [facility] Calcium, Ionized 1.16 1.12 - 1.32 [facility] mmol/L LAB Base Deficit, 1 [facility] i-STAT LAB Sample Type NOT GIVEN [facility] combat systems operator ID [id number] [facility] Comment: LAB Test performed by Perfusion For non-arterial reference ranges, please see ISTAT procedure. Specimen Performing Organization Address City/State/ZIP Code Phon e Number [facility] [address] [place] [address] SERVICES [facility] [address] [place] [address] (ABNORMAL) BLOOD GAS, CG8 ISTAT (10/19/2013 10:53 EDT) pH, i-STAT 7.49 (H) 7.35 - 7.45 [facility] pCO2, i-STAT 32 (L) 35 - 45 mmHg [facility] pO2, i-STAT 331 (H) 80 - 105 mmHg [facility] TCO2, i-STAT 25 mEq/L [facility] O2 Saturation 100 % [facility] Sodium, i-STAT 133 (L) 136 - 145 [facility] mEq/L LAB Potassium, i-STAT 6.8 (HH) 3.5 - 5.0 [facility] mEq/L LAB Glucose, I-STAT 223 (H) 70 - 100 [facility] mg/dl LAB Hematocrit,iSTAT 30 (L) 39.5 - 50.2 % [facility] Calcium, Ionized 1.12 1.12 - 1.32 [facility] mmol/L LAB Base Excess, i-STAT 1 [facility] Sample Type NOT GIVEN [facility] combat systems operator ID [id number] [facility] Comment: LAB Test performed by Perfusion For non-arterial reference ranges, please see ISTAT procedure. Specimen Performing Organization Address City/State/ZIP Code Phon e Number [facility] [address] [place] [address] SERVICES [facility] [address] [place] [address] ACT, AMANDA ISTAT (10/19/2013 10:52 EDT) Activated Clotting 533 [facility] Time Tech ID [id number] [facility] Comment: Test performed by Perfusion Baseline ref range is less than or equal to 145 second s For non baseline ref ranges see procedure. Specimen Performing Organization Address [facility]/ZIP Code Phon e Number [facility] [address] [place] [address] SERVICES [facility] [address] [place] [address] (ABNORMAL) BLOOD GAS, CG8 ISTAT (10/19/2013 10:25 EDT) pH, i-STAT 7.40 7.35 - 7.45 [facility] pCO2, i-STAT 37 35 - 45 mmHg [facility] pO2, i-STAT 53 (L) 80 - 105 mmHg [facility] TCO2, i-STAT 24 mEq/L [facility] O2 Saturation 87 % [facility] Sodium, i-STAT 133 (L) 136 - 145 [facility] mEq/L LAB Potassium, i-STAT 6.1 (HH) 3.5 - 5.0 [facility] mEq/L LAB Glucose, I-STAT 201 (H) 70 - 100 [facility] mg/dl LAB Hematocrit,iSTAT 31 (L) 39.5 - 50.2 % [facility] Calcium, Ionized 1.15 1.12 - 1.32 [facility] mmol/L LAB Base Deficit, 2 [facility] i-STAT LAB Sample Type NOT GIVEN [facility] combat systems operator ID [id number] [facility] Comment: LAB Test performed by Perfusion For non-arterial reference ranges, please see ISTAT procedure. Specimen Performing Organization Address City/[facility]/ZIP Code Phon e Number [facility] [address] [place] [address] SERVICES [facility] [address] [place] [address] (ABNORMAL) BLOOD GAS, CG8 ISTAT (10/19/2013 10:02 EDT) pH, i-STAT 7.44 7.35 - 7.45 [facility] pCO2, i-STAT 38 35 - 45 mmHg [facility] pO2, i-STAT 504 (H) 80 - 105 mmHg [facility] TCO2, i-STAT 27 mEq/L [facility] O2 Saturation 100 % [facility] Sodium, i-STAT 130 (L) 136 - 145 [facility] mEq/L LAB Potassium, i-STAT 6.1 (HH) 3.5 - 5.0 [facility] mEq/L LAB Glucose, I-STAT 189 (H) 70 - 100 [facility] mg/dl LAB Hematocrit,iSTAT 28 (L) 39.5 - 50.2 % [facility] Calcium, Ionized 1.10 (L) 1.12 - 1.32 [facility] mmol/L LAB Base Excess, i-STAT 2 [facility] Sample Type NOT GIVEN [facility] combat systems operator ID [id number] [facility] Comment: LAB Test performed by Perfusion For non-arterial reference ranges, please see ISTAT procedure. Specimen Performing Organization Address City/State/ZIP Code Phon e Number [facility] [address] [place] [address] SERVICES [facility] [address] [place] [address] ACT, CELITE ISTAT (10/19/2013 10:02 EDT) Activated Clotting 592 [facility] Time Tech ID [id number] [facility] Comment: Test performed by Perfusion Baseline ref range is less than or equal to 145 second s For non baseline ref ranges see procedure. Specimen Performing Organization Address City/[facility]/ZIP [facility] Phon e Number [facility] [address] [place] [address] SERVICES [facility] [address] [place] [id number] ACT, CELITE ISTAT (10/19/2013 9:17 EDT) Activated Clotting 698 [facility] Time Tech ID [id number] [facility] Comment: Test performed by Perfusion Baseline ref range is less than or equal to 145 second s For non baseline ref ranges see procedure. Specimen Performing Organization Address [facility]/ZIP Code Phon e Number [facility] [address] [place] [address] SERVICES [facility] [address] [place] [address] (ABNORMAL) BLOOD GAS, CG8 ISTAT (10/19/2013 8:49 EDT) pH, i-STAT 7.40 7.35 - 7.45 [facility] pCO2, i-STAT 39 35 - 45 mmHg [facility] pO2, i-STAT 68 (L) 80 - 105 mmHg [facility] TCO2, i-STAT 26 mEq/L [facility] O2 Saturation 93 % [facility] Sodium, i-STAT 136 136 - 145 [facility] mEq/L LAB Potassium, i-STAT 5.0 3.5 - 5.0 [facility] mEq/L [facility] Glucose, I-STAT 147 (H) 70 - 100 [facility] mg/dl LAB Hematocrit,iSTAT 38 (L) 39.5 - 50.2 % [facility] Calcium, Ionized 1.22 1.12 - 1.32 [facility] mmol/L LAB Base Excess, i-STAT 0 [facility] Sample Type NOT GIVEN [facility] combat systems operator ID [id number] [facility] Comment: LAB Test performed by Perfusion For non-arterial reference ranges, please see ISTAT procedure. Specimen Performing Organization Address [facility]/ZIP Code Phon e Number [facility] [address] [place] [address] SERVICES [facility] [address] [place] [address] ACT, CELITE ISTAT (10/19/2013 8:48 EDT) Activated Clotting 135 [facility] Time Tech ID [id number] [facility] Comment: Test performed by Perfusion Baseline ref range is less than or equal to 145 second s For non baseline ref ranges see procedure. Specimen Performing Organization Address [facility]/ZIP Code Phon e Number [facility] [address] [place] [address] SERVICES [facility] [address] [place] [address] PORTABLE CHEST 1 VIEW (10/19/2013 8:24 EDT) Anatomical Region Laterality Modality Other Specimen Narrative [facility] - 10/19/2013 12:03 EDT PORTABLE CHEST 1 VIEW ??10/19/2013 8:24 AM Signs and Symptoms/Comments: ??Mitral Va lve Insufficiency. Intra op CXR for placement. Comparison: Chest radiograph October 18. Findings: A portable AP view of the chest was obta ined with the patient in a supine position. A right IJ catheter is present. The tip of the endotracheal tube is within the lower tr achea. An endoscope extends to the distal esophagus. A surgical clam p projects over the right midlung. The lung volumes are low withou t focal abnormality. The pulmonary vascularity and cardiomediasti nal silhouette are unremarkable for technique. No pneumotho rax or pleural effusion is visible, however neither can be excluded on this supine radiograph. Impression: 1. The endotracheal tube is within the l ower trachea and should be retracted 1-2 cm for optimum positioning . 2. Otherwise, accounting for low lung vo lumes, no significant abnormality. I have personally reviewed the images an d the above interpretation and agree with the findings. Procedure Note Trev Barrios MD - 10/19/2013 PORTABLE CHEST 1 VIEW 10/19/2013 8:24 AM Signs and Symptoms/Comments: Mitral Valv e Insufficiency. Intra op CXR for placement. Comparison: Chest radiograph October 18. Findings: A portable AP view of the chest was obta ined with the patient in a supine position. A right IJ catheter is present. The tip of the endotracheal tube is within the lower tr achea. An endoscope extends to the distal esophagus. A surgical clam p projects over the right midlung. The lung volumes are low withou t focal abnormality. The pulmonary vascularity and cardiomediasti nal silhouette are unremarkable for technique. No pneumotho rax or pleural effusion is visible, however neither can be excluded on this supine radiograph. Impression: 1. The endotracheal tube is within the l ower trachea and should be retracted 1-2 cm for optimum positioning . 2. Otherwise, accounting for low lung vo lumes, no significant abnormality. I have personally reviewed the images an d the above interpretation and agree with the findings. Performing Organization Address City/State/ZIP Code Phon e Number [facility] THROMBELASTOGRAPH (10/19/2013 7:46 EDT) Reaction Time 5.2 5 - 10 mins [facility] K Time 1.5 1 - 3 mins [facility] Angle 68.6 53 - 72 [facility] Degrees LAB Maximum Amplitude 55.2 50 - 70 mm [facility] Estimated % Lysis 5.2 0 - 15 % [facility] Interpretation Thrombelastograph results are essentially [facility] Comment: LAB within or close to reference ranges. These findings indicate adequate hemostasis. TEG tracings available for review in Scans/Media. Current TEG assay will not detect the effects of platelet inhibitors such as Plavix or Aspirin. Reviewed by Dr. Ness. Patient Location Not Given [facility] Specimen Performing Organization Address City/[facility]/ZIP Code Phon e Number [facility] [address] [place] [address] SERVICES [facility] [address] [place] [address] CREATININE (10/19/2013 7:23 EDT) Pathologist Sig nature Creatinine 1.00 0.66 - 1.25 mg/dl [facility] GFR, Calculated >60 >60 ml/min/1.73m2 [facility] Specimen Blood specimen (specimen) Performing Organization Address [facility]/ZIP Code Phon e Number [facility] [address] [place] [address] SERVICES [facility] [address] [place] [address] BUN (10/19/2013 7:23 EDT) Pathologist Sig nature BUN 16 10 - 26 mg/dl [facility] Specimen Blood specimen (specimen) Performing Organization Address City/State/ZIP Code Phon e Number [facility] [address] [place] [address] SERVICES [facility] [address] [place] [address] ANESTH TRANSESOPHAGEAL ECHO (10/19/2013 7:20 EDT) Specimen Narrative CARDIOLOGY - 10/19/2013 7:20 EDT Non Reportable Exam Procedure Note 10/20/2013 Non Reportable Exam Performing Organization Address City/[facility]/ZIP Code Phon e Number [facility] CARDIOLOGY documented in this encounter Visit Diagnoses Diagnosis Mitral valve insufficiency - Primary Mitral valve disorders documented in this encounter Administered Medications Inactive Administered Medications - up to 3 most recent administrations Medication Order MAR Action Action Date Dose Rate Site acetaminophen (TYLENOL) tablet Given 10/20/2013 8:46 EDT 1,000 m g 500-1,000 mg 500-1,000 mg, oral, EVERY 6 HOURS PRN, Starting on Fri10/19/13 at 1247, Until Fri10/20/13 at 1159, Pain, Fever, Give prn for mild pain or fever > 38., Routine Given 10/20/2013 2:09 EDT 1,000 mg acetaminophen (TYLENOL) tablet 500-1,000 mg Given 10/21/2013 20:40 EDT 500 mg 500-1,000 mg, oral, EVERY 6 HOURS PRN, Starting on Fri10/20/13 at 1159, Until Fri10/22/13 at 1347, Pain, Fever, Give prn for mild pain or fever > 38., Routine Given 10/20/2013 15:24 EDT 1,000 mg aspirin EC tablet 325 mg Given 10/22/2013 8:29 EDT 325 mg 325 mg, oral, DAILY, First dose on Fri10/20/13 at 1215, Until Discontinued, Routine Given 10/21/2013 8:24 EDT 325 mg aspirin EC tablet 81 mg Given 10/20/2013 8:47 EDT 81 mg 81 mg, oral, DAILY, First dose on Fri10/20/13 at 0900, Until Discontinued, Routine atorvastatin (LIPITOR) tablet 20 mg Given 10/21/2013 17:02 EDT 20 mg 20 mg, oral, EVERY EVENING, First dose on Fri10/20/13 at 1700, Until Discontinued, Routine Given 10/20/2013 17:27 EDT 20 mg bisacodyl (DULCOLAX) suppository 10 mg Given 10/22/2013 9:10 EDT 10 mg 10 mg, rectal, DAILY PRN, Starting on Fri10/20/13 at 1159, Until Fri10/22/13 at 1347, Constipation, Routine ceFAZolin (ANCEF) 2,000 mg in sodium chloride Given 23:47 EDT 2,000 mg 0.9% 50 mL IVPB 2,000 mg, intravenous, Administer over 30 Minutes, EVERY 8 HOURS, 2 doses, First dose on Fri10/19/13 at 1600, Last dose on Fri10/20/13 at 0000, Routine, On Unit Given 10/19/2013 15:58 EDT 2,000 mg ceFAZolin (ANCEF) syringe 2 g Given by Other 10/19/2013 8:10 EDT 2 g 2 g, intravenous, Administer over 10 Minutes, PRE-OP ONCE, 1 dose, On Fri10/19/13 at 0700, Routine, Pre-Op DOS Rx Approved docusate sodium (COLACE) capsule 100 mg Given 10/22/2013 8:28 EDT 100 mg 100 mg, oral, 2 TIMES DAILY, First dose on Fri10/20/13 at 1215, Until Discontinued, Routine Given 10/21/2013 20:41 EDT 100 mg Given 10/21/2013 8:24 EDT 100 mg enoxaparin (LOVENOX) injection 40 mg Given 10/22/2013 8:30 EDT 40 mg 40 mg, subcutaneous, DAILY, First dose on Fri10/21/13 at 0900, Until Discontinued, Routine Given 10/21/2013 8:24 EDT 40 mg furosemide (LASIX) injection 20 mg Given 10/20/2013 6:45 EDT 20 mg 20 mg, intravenous, NOW X1, 1 dose, On Fri10/20/13 at 0645, Routine furosemide (LASIX) tablet 20 mg Given 10/22/2013 8:29 EDT 20 mg 20 mg, oral, DAILY, First dose on Fri10/21/13 at 0900, Until Discontinued, Routine Given 10/21/2013 8:24 EDT 20 mg HYDROmorphone (DILAUDID) tablet 2-4 mg Given 10/20/2013 2:09 EDT 2 mg 2-4 mg, oral, EVERY 3 HOURS PRN, Starting on Fri10/19/13 at 1247, Until Fri10/22/13 at 1347, Pain, Routine insulin regular (HUMULIN Rate Documented 10/21/2013 20:53 EDT 1 Uni ts/hr 1 mL/hr R,NOVOLIN R) 100 Units in sodium chloride (NS) 0.9 % 100 mL infusion 1 Units/hr (rounded to 1 mL/hr), intravenous, CONTINUOUS, Starting on Fri10/19/13 at 1315, Until Fri10/22/13 at 0653, STAT New Bag 10/21/2013 15:33 EDT 1 Units/hr 1 mL/hr Rate Change 10/21/2013 14:36 EDT 1 Units/hr 1 mL/hr labetalol (TRANDATE) injection 5 mg Given 10/20/2013 3:49 EDT 5 mg 5 mg, intravenous, NOW X1, 1 dose, On Fri10/20/13 at 0345, Routine lactated ringers (LR) infusion New Bag 10/19/2013 6:30 EDT 25 mL/hr at 25 mL/hr, intravenous, CONTINUOUS, Starting on Fri10/19/13 at 0715, Until Fri10/19/13 at 1247, Routine, Pre Op Day of Surgery lisinopril (PRINIVIL, ZESTRIL) tablet 5 mg Given 10/21/2013 8:24 EDT 5 mg 5 mg, oral, DAILY, First dose on Fri10/20/13 at 1215, Until Discontinued, Routine Given 10/20/2013 13:06 EDT 5 mg magnesium sulfate in D5W 2 g/50 mL she de bag Given 10/19/2013 13:06 EDT 2 g 2 g, intravenous, Administer over 30 Minutes, NOW X1, 1 dose, On Fri10/19/13 at 1315, Routine, On Unit magnesium sulfate in D5W 2 g/50 mL she de bag Given 10/21/2013 14:55 EDT 2 g 2 g, intravenous, Administer over 30 Minutes, NOW X1, 1 dose, On Fri10/21/13 at 1345, Routine magnesium sulfate in D5W 2000 mg/50 mL I VPB 1 dose, Starting on Fri10/19/13 at 1257, Until 10/05 at 1336 metoprolol (LOPRESSOR) injection 5 mg Given 10/21/2013 9:12 EDT 5 mg 5 mg, intravenous, NOW X1, 1 dose, On Fri10/21/13 at 0915, STAT metoprolol (LOPRESSOR) tablet 25 mg Given 10/20/2013 8:47 EDT 25 mg 25 mg, oral, EVERY 12 HOURS, First dose on Fri10/20/13 at 0900, Until Discontinued, Routine metoprolol (LOPRESSOR) tablet 25 mg Given 10/21/2013 20:40 EDT 25 mg 25 mg, oral, 2 TIMES DAILY, First dose on Fri10/20/13 at 1215, Until Discontinued, Routine Given 10/21/2013 8:24 EDT 25 mg Given 10/20/2013 21:30 EDT 25 mg metoprolol (LOPRESSOR) tablet 50 mg Given 10/22/2013 8:29 EDT 50 mg 50 mg, oral, 2 TIMES DAILY, First dose (after last modification) on Fri10/22/13 at 0900, Until Discontinued, Routine morphine injection 1-2 mg Given 10/19/2013 15:58 EDT 2 mg 1-2 mg, intravenous, EVERY 1 HOUR PRN, Starting on Fri10/19/13 at 1247, Until Fri10/20/13 at 1159, Pain, Routine ondansetron (PF) (ZOFRAN) injection 2-4 mg Given 10/20/2013 7:07 EDT 4 mg 2-4 mg, intravenous, EVERY 6 HOURS PRN, Starting on Fri10/19/13 at 1247, Until Fri10/22/13 at 1347, Nausea, Routine Given 10/19/2013 17:08 EDT 4 mg PEG 3350-Electrolytes (MIRALAX) packet 1 7 g Given 10/22/2013 8:29 EDT 17 g 17 g, oral, DAILY, First dose on Fri10/21/13 at 1430, Until Discontinued, Routine Given 10/21/2013 17:02 EDT 17 g potassium chloride SA (K-DUR, KLOR-CON M10) Given 10/22/2013 8:2 9 EDT 10 mEq tablet 10 mEq 10 mEq, oral, DAILY, First dose on Fri10/21/13 at 0900, Until Discontinued, Routine Given 10/21/2013 8:24 EDT 10 mEq propofol (DIPRIVAN) Rate Documented 10/19/2013 15:00 9.916 mcg/kg/min 4.7 mL/hr 1000 mg in 100 mL EDT infusion 5-83 mcg/kg/min ? 79 kg (rounded to 2.4-39.3 mL/hr), intravenous, CONTINUOUS, Starting on Fri10/19/13 at 1315, Until Fri10/20/13 at 0424, Routine Rate Change-ICU/L&D Only 10/19/2013 14:44 EDT 9.916 mcg/kg/min 4.7 mL/hr Rate Documented 10/19/2013 14:00 EDT 35.021 mcg/kg/min 16.6 mL/hr senna (SENOKOT) tablet 1 Tab Given 10/21/2013 20:41 EDT 1 Tablet 1 Tablet, oral, AT BEDTIME, First dose on Azra 10/21/13 at 2100, Until Discontinued, Routine sodium chloride 0.9 % (NS) Rate Documented 10/20/2013 11:00 EDT 10 mL/hr 10 mL/hr infusion at 10 mL/hr, 10 mL/hr, intravenous, CONTINUOUS, Starting on Fri10/19/13 at 1315, Until Fri10/20/13 at 1159, Routine Rate Documented 10/20/2013 10:00 EDT 10 mL/hr 10 mL/hr Rate Documented 10/20/2013 9:00 EDT 10 mL/hr 10 mL/hr documented in this encounter Discontinued Medications Medication Sig Discontinue Reason Start Date End Date Chlorhexidine Gluconate Use once daily beginning 5 d ays prior to surgery if test results positive. The physician's office will call to tell you if you need to fill this prescription. 10/18/2013 10/21/2013 2 % Liquid . mupirocin calcium Apply both nares for 10/18/2013 (BACTROBAN) 2 % nasal 5 days prior to ointment surgery if test results positive. The physician's office will call to tell you if you need to fill this prescription.. lisinopril (PRINIVIL, Take 20 mg by mouth 10/22/2013 ZESTRIL) 20 mg tablet every evening. documented as of this encounter Active and Recently Administered Medications Times are shown in EDT. Scheduled Medication Order 10/20/2013 10/21/2013 10/22/2013 aspirin EC tablet 325 mg (CANCELED) 1309 (Not Given - Provider: Kourtney Yeung RN - Reason: Other - Comment: [email or web address] this am. hold per Dr. cannon) 0824 (Given - Provider: Lyudmila Alvarado) 0829 (Given - Provider: Kourtney Yeung, AARON) 325 mg, oral, DAILY, First dose on Fri at 1215, Until Discontinued, Routine aspirin EC tablet 81 mg (CANCELED) 0847 (Given - Provi aury: Reba Yang RN) 81 mg, oral, DAILY, First dose on Fri at 0900, Until Discontinued, Routine atorvastatin (LIPITOR) tablet 20 mg (CANCELED) 1727 (Marianne durand - Provider: Kourtney Yeung RN) 1702 (Given - Provider: Kourtney Yeung RN) 20 mg, oral, EVERY EVENING, First dose o n Fri10/20/13 at 1700, Until Discontinued, Routine docusate sodium (COLACE) capsule 100 mg 1306 (Given - Provider: Kourtney Yeung RN)2130 (Given - Provider: Caroline Hannon RN) 0824 (Given - Provider: Lyudmila Alvarado)2040 (Given - Provider: Barbara Bose, AARON) 0828 (Given - Provider: Kourtney Yeung RN) 100 mg, oral, 2 TIMES DAILY, First dose on Fri10/20/13 at 1215, Until Discontinued, Routine enoxaparin (LOVENOX) injection 40 mg (CANCELED) 0824 (Given - Provider: Lyudmila Alvarado) 0830 (Given - Provider: Kourtney morris RN) 40 mg, subcutaneous, DAILY, First dose o n Fri10/21/13 at 0900, Until Discontinued, Routine furosemide (LASIX) injection 20 mg (COMPLETED) 0645 (Marianne durand - Provider: Radha Vega RN) 20 mg, intravenous, NOW X1, 1 dose, Fri10/20/13 at 0645, Routine furosemide (LASIX) tablet 20 mg 0824 (Given - Pr ovider: Lyudmila Alvarado) 0829 (Given - Provider: Kourtney Yeung RN) 20 mg, oral, DAILY, First dose on Fri at 0900, Until Discontinued, Routine labetalol (TRANDATE) injection 5 mg (COMPLETED) 034 ( Given - Provider: Radha Vega RN) 5 mg, intravenous, NOW X1, 1 dose, Fri10/20/13 at 0345, Routine lisinopril (PRINIVIL, ZESTRIL) tablet 5 mg (CANCELED) 1306 (Given - Provider: Kourtney Yeung RN) 0824 (Given - Provider: Lyudmila Alvarado) 5 mg, oral, DAILY, First dose on 10/05 at 1215, Until Discontinued, Routine magnesium sulfate in D5W 2 g/50 mL premade bag (COMPLETED) 1455 (Given - Provider: Kourtney Yeung RN) 2 g, intravenous, for 30 Minutes, NOW X1, 1 dose, Azra 4 at 1345, Routine metoprolol (LOPRESSOR) injection 5 mg (COMPLETED) 09 (Given - Provider: Lyudmila Alvarado) 5 mg, intravenous, NOW X1, 1 dose, Fri10/21/13 at 0915, STAT metoprolol (LOPRESSOR) tablet 25 mg (CANCELED) 08 (G iven - Provider: Reba Yang RN) 25 mg, oral, EVERY 12 HOURS, First dose on Fri10/20/13 at 0900, Until Discontinued, Routine metoprolol (LOPRESSOR) tablet 25 mg (CANCELED) 1224 (N ot Given - Provider: Kourtney Yeung RN - Reason: Other - Comment: per Dr. Cannon. received morning dose in SICU)2129 (Given - Provider: Caroline Hannon, AARON) 08 (Given - Provider: Lyudmila Alvarado)2039 (Given - Provider: Barbara Bose, AARON) 25 mg, oral, 2 TIMES DAILY, First dose o n Fri10/20/13 at 1215, Until Discontinued, Routine metoprolol (LOPRESSOR) tablet 50 mg 08 (Given - Provider: Kourtney Yeung RN) 50 mg, oral, 2 TIMES DAILY, First dose o n Fri10/22/13 at 0900, Until Discontinued, Routine PEG 3350-Electrolytes (MIRALAX) packet 17 g 1702 (Given - Provider: Kourtney Yeung RN) 08 (Given - Provider: Kourtney morris RN) 17 g, oral, DAILY, First dose on 10/05 at 1430, Until Discontinued, Routine potassium chloride SA (K-DUR, KLOR-CON M10) tablet 10 mEq 08 (Given - Provider: Lyudmila Alvarado) 0829 (Given - Provider: Kourtney morris RN) 10 mEq, oral, DAILY, First dose on Azra at 0900, Until Discontinued, Routine senna (SENOKOT) tablet 1 Tab 2040 (Given - Provi aury: Barabra Bose, RN) 1 Tab, oral, AT BEDTIME, First dose on T hu 10/21/13 at 2100, Until Discontinued, Routine Continuous Medication Order 10/20/2013 10/21/2013 10/22/2013 insulin regular (HUMULIN R,NOVOLIN R) 10 0 Units in sodium chloride (NS) 0.9 % 100 mL infusion (CANCELED) 0000 (Rate Documented - Provider: Radha cerna RN)0100 (Rate Documented - Provider: Radha Vega RN)0200 (Rate Documented - Provider: Radha Vega RN)0300 (Rate Documented - Provider: Radha Vega RN)0400 (Rate Change- ICU/L&D Only - Provider: Radha Vega RN) 0829 (Rate Change - Provider: Kourtney Yeung RN)1436 (Rate Change - Provider: Kourtney Yeung, AARON)1533 (New Bag - Provider: Kourtney Yeung, AARON)2053 (Rate Documented - Provider: Barbara benson, AARON) 0710 (Completed - Provider: Kourtney Mejia RN) 1 Units/hr = 1 mL/hr, intravenous, HORACE NUOUS, Starting Tu10/19/13 at 1315, Until Fri10/22/13 at 0653, STAT 0500 (Rate Documented - Provider: Radha cerna RN)0600 (Rate Documented - Provider: Radha Vega RN)0700 (Rate Documented - Provider: Radha Vega RN)0800 (Rate Documented - Provider: Guy Baker N) 0900 (Rate Documented - Prov ider: Reba Yang RN)1000 (Rate Documented - Provider: Reba Yang RN)1100 (Rate Documented - Provider: Reba Yang RN)1145 (Rate Documented - Provider: Kourtney Yeung RN) 1327 (New Bag - Provider: Jairo Yeung RN)2007 (Rate Documented - Provider: Caroline Hannon RN)2106 (Rate Change - Provider: Caroline Hannon RN)2358 (Rate Change - Provider: Caroline Hannon RN) sodium chloride 0.9 % (NS) infusion (CANCELED) 0000 (R ate Documented - Provider: Radha Vega RN)0100 (Rate Documented - Provider: Radha Vega RN)0200 (Rate Documented - Provider: Radha Vega RN)0300 (Rate Documented - Provider: Radha Vega RN)0400 (Rate Documented - Provider: Radha Vega RN) at 10 mL/hr, 10 mL/hr, intravenous, CONT INUOUS, Starting Fri10/19/13 at 1315, Until Fri10/20/13 at 1159, Routine 0500 (Rate Documented - Provider: Radha cerna RN)0600 (Rate Documented - Provider: Radha Vega RN)0700 (Rate Documented - Provider: Radha Vega RN)0800 (Rate Documented - Provider: Reba Yang, Guy N) 0900 (Rate Documented - Prov ider: Reba Yang RN)1000 (Rate Documented - Provider: Reba Yang RN)1100 (Rate Documented - Provider: Reba Yang RN) PRN Medication Order 10/20/2013 10/21/2013 10/22/2013 acetaminophen (TYLENOL) tablet 500-1,000 mg (CANCELED) 0209 (Given - Provider: Radha Vega RN)0846 (Given - Provider: Reba Yang RN) 500-1,000 mg, oral, EVERY 6 HOURS PRN, S tarting Fri10/19/13 at 1247, Until Fri10/20/13 at 1159, Pain, Fever, Give prn for mild pain or fever > 38., Routine acetaminophen (TYLENOL) tablet 500-1,000 mg 1524 (Give n - Provider: Kourtney Yeung RN) 2040 (Given - Provider: Barbara Bose RN) 500-1,000 mg, oral, EVERY 6 HOURS PRN, S tarting Fri10/20/13 at 1159, Until Fri10/22/13 at 1347, Pain, Fever, Give prn for mild pain or fever > 38., Routine bisacodyl (DULCOLAX) EC tablet 5 mg 5 mg, oral, DAILY PRN, Starting 10/22 at 0835, Until Fri10/22/13 at 1347, Constipation, Routine bisacodyl (DULCOLAX) suppository 10 mg 0910 (Given - Provider: Kourtney Yeung, RN) 10 mg, rectal, DAILY PRN, Starting Fri at 1159, Until Fri10/22/13 at 1347, Constipation, Routine HYDROmorphone (DILAUDID) tablet 2-4 mg 0209 (Given - Provider: Alfonso Vega, RN) 2-4 mg, oral, EVERY 3 HOURS PRN, Startin g Fri10/19/13 at 1247, Until Fri10/22/13 at 1347, Pain, Routine magnesium hydroxide (MILK OF MAGNESIA) 400 mg/5 mL suspension 30 mL 30 mL, oral, DAILY PRN, Starting Azra10/05 at 1401, Until Fri10/22/13 at 1347, Constipation, Routine ondansetron (PF) (ZOFRAN) injection 2-4 mg (CANCELED) 0707 (Given - Provider: Radha Vega RN) 2-4 mg, intravenous, EVERY 6 HOURS PRN, Starting Fri10/19/13 at 1247, Until Fri10/22/13 at 1347, Nausea, Routine sodium phosphate (FLEET) enema 1 Enema 1 Enema, rectal, DAILY PRN, Starting Fri10/22/13 at 0835, Until Fri10/22/13 at 1347, Constipation, Routine documented in this encounter Orders Medications Ordered That Might Not Have Count Last Ord ered Date First Ordered Date Been Administered bisacodyl (DULCOLAX) EC tablet 5 mg 1 10/22/2013 dextrose 50 % solution 12.5 g 1 10/22/2013 glucagon (human recombinant) injection 1 1 014 mg insulin aspart (NOVOLOG FLEXPEN) injection 2 10/22 sodium phosphate (FLEET) enema 1 Enema 1 4 magnesium hydroxide (MILK OF MAGNESIA) 400 1 10/21 mg/5 mL suspension 30 mL acetaminophen (TYLENOL) suppository 2 10/20/2013 10/19/2013 650-975 mg ibuprofen (MOTRIN) tablet 600 mg 1 10/20/2013 oxyCODONE (ROXICODONE) immediate release 1 014 tablet 5-10 mg albumin (BUMINATE) 5 % infusion 25 g 1 10/19/2013 dextrose 50 % solution 12.5-25 g 1 10/19/2013 fentaNYL citrate (PF) 50 mcg/mL injection 1 2013 25-100 mcg ketOROLAC (TORADOL) injection 30 mg 1 10/19/2013 metoprolol (LOPRESSOR) injection 5 mg 1 10/19/2013 morphine injection 3-5 mg 1 10/19/2013 nitroglycerin 400 mcg/ml in D5W 250 ml 1 4 infusion potassium chloride infusion 20 mEq 1 10/19/2013 propofol (DIPRIVAN) 10 mg/mL injection 1 4 propofol (DIPRIVAN) 1000 mg in 100 mL 1 10/19/2013 infusion cardioplegic solution (HIGH-K) 1,000 mL 1 10/19/19 14 cardioplegic solution (HIGH-K) 500 mL 1 10/18/2013 Procedures Count Last Ordered Date First Ordered Date INVASIVE CARDIOLOGY REPORT-SCANNED 1 07/19/2015 ECG REPORT - SCANNED 6 11/05/2013 10/26/2013 IMPLANT RECORD - SCANNED 1 10/28/2013 Diet Count Last Ordered Date First Ordered Date DISCHARGE DIET 2 10/21/2013 Nursing Count Last Ordered Date First Ordered Date ACTIVITY INSTRUCTIONS 8 10/21/2013 BATHING INSTRUCTIONS 4 10/21/2013 MIR CATHETER - DISCONTINUE 1 10/21/2013 WOUND CARE INSTRUCTIONS 3 10/21/2013 CATHETER CARE 1 10/20/2013 CHECK AV/PACEMAKER WIRES 1 10/20/2013 CHEST TUBE TO CONTINUOUS SUCTION 1 10/20/2013 MEASUREMENTS - MISCELLANEOUS 1 10/20/2013 CONTRAINDICATION TO ANTICOAGULATION 1 10/19/2013 THERAPY INSERT MIR CATHETER 1 10/19/2013 INSERT PERIPHERAL IV 1 10/19/2013 Respiratory Care Count Last Ordered Date First Ordered Date RESPIRATORY CARE EVALUATION ONLY 2 10/20/2013 10/19/2013 EXTUBATION 1 10/19/2013 IV Count Last Ordered Date First Ordered Date IV REQUEST 1 10/21/2013 REMOVE CORDIS 1 10/21/2013 Admission Count Last Ordered Date First Ordered Date ORDERS - SCANNED 1 10/20/2013 STATUS: INPATIENT DOSA/DOPA DAY OF 2 10/19/2013 SURGERY/PROCEDURE ADMISSION Transfer Count Last Ordered Date First Ordered Date NOTIFY PPS OF DISCHARGE COMPLETE 1 10/22/2013 PPS NOTIFICATION OF SENDING PATIENT OFF 2 10/21/19 14 10/19/2013 THE UNIT TRANSFER PATIENT 2 10/20/2013 10/19/2013 PPS NOTIFICATION OF PATIENT ARRIVAL ON 2 4 UNIT Discharge Count Last Ordered Date First Ordered Date DISCHARGE PATIENT 1 10/22/2013 Legal Count Last Ordered Date First Ordered Date MISCELLANEOUS DISCHARGE INSTRUCTIONS 3 10/21/2013 documented in this encounter Care Teams Otm Consultant Relationship Specialty Start Date End Date Maggie Lee MD PCP - General 10/12/13 [address] [place] [address] documented as of this encounter
--- OUTSIDE RECORDS SUMMARY | 2021-12-31 15:10 | XMS_ITS | Encounter Summary ---
:1945 Author Organization [facility] Address [address] [place] [address] Care Team Providers Name Role Phone Juan C Lee MD Primary Care Provider Encounter Details Date Type Department Care Team Description 10/14/2013 Results Only [facility] Choco Keating, Imaging Cardiothoracic Surgery - [id number] [place] [address] [phone] (Wo rk) Social History Tobacco Use [...] on file documented as of this encounter Plan of Treatment Not on filedocumented as of this encounter Procedures Procedure Name Priority Date/Time Associated Diagnosis Comme nts LEFT HEART CATH 10/18/2013 8:37 EDT Resul ts for this procedure are i n the results section. documented in this encounter Results LEFT HEART CATH (10/18/2013 8:37 EDT) Specimen Narrative CARDIOLOGY - 10/20/2013 15:28 EDT Cardiology [address] [place] [address] Catheterization Laboratory Study Diagnostic report Patient: Jorge Luis Sierra ? Study Date: ?10/18/2013 ?Accession #: ? [id number] : ? 1945 Referring Physician: Juan C Lee Diagnostic Attending: ??Rancho Hensley Interventional Attending: ?? Chris Hensley Diagnostic Fellow: Matthew Jarrett ?? ATTESTATION: Dr. Rancho Hensley was present and super vising for the entire procedure, I Dr. Matthew Jarrett was the initial author o f this report. I, Dr. Rancho Hensley have reviewed and agree with the finding s of this report. PROCEDURE PLAN: A diagnostic study was performed without intervention. RESEARCH STUDY: Patient is not enrolled in any research studies. IMPRESSIONS: Mild coronary artery disease. SUMMARY: 1. HPI and indications: Severe mitral re gurgitation. Pre operative coronary ?? evaluation. 2. Left main: Normal. 3. LAD: Minor luminal irregularities. 4. Left circumflex: Minor luminal irregu larities. 5. Right coronary: Minor luminal irregul arities. RECOMMENDATIONS: Mitral valve surgery without CABG or PCI . HISTORY: Severe mitral regurgitation. Pre operati ve coronary evaluation. ??Risk factors: Family history of coronary artery diseas e. Former tobacco use. Hypertension. Dyslipidemia. ??Medications: ??MOLLY inhib itors. ??Aspirin. ??Statins. ??Allergies: ??No known allergies. LABS, PRIOR TESTS, PROCEDURES AND SURGER Y: Serum creatinine (current admission) of 0.9 mg/dl. ??Prothrombin time (PT) of 10.7 sec. ??Hematocrit of 43.4 %. ??Plat elet count of 159 th/ul. ??Serum potassium (K) of 4.6 mEq/l. ??Blood urea nitrogen of 20 mg/dl. ??Hemoglobin (pre-procedure) of 15 g/dl. ??International normalized r atio (INR) of 0.9. STUDY DATA: Study status: ??Cardiac cath: elective. ??Location: ??Catheterization laboratory. Sex: male. Patient is 67yr old. Height: 179.1cm. Weight: 78.9kg. BSA: 1.99m^2. Procedures performed: ?Right femoral artery access. ?Left coronary angiography. ?Right coronary angiogr aphy. ?Right common femoral angiography. PROCEDURE: 1. Initial setup. The patient was nury t to the laboratory in the fasting ?? state. A baseline ECG was recorded. Surface ECG leads, automatic cuff blood ?? pressure measurements, and pulse oxi metric signals were monitored. 2. Skin preparation. The planned punctur e sites were prepped with chlorhexidine ?? and draped in the usual sterile whalen er. 3. Right femoral artery access. A 6F [place]. Dino ACT Ultimum sheath was advanced ?? into the vessel. 4. Selective left coronary angiography. A 6F FL4 catheter was advanced into the ?? left coronary vessel ostium under fl uoroscopic guidance. Contrast was ?? injected by hand. Images were obtain ed in multiple projections. 5. Selective right coronary angiography. A 6F AR Mod catheter was advanced into ?? the right coronary vessel ostium und er fluoroscopic guidance. Contrast was ?? injected by hand. Images were obtain ed in multiple projections. 6. Selective right common femoral angiog kath, under fluoroscopic guidance. A 6F ?? AR Mod catheter was advanced into th e right common femoral artery. Contrast ?? was injected by hand. Images were ob tained. 7. Right femoral artery hemostasis. 6 FR Angioseal VIP was used at the access ?? site. STUDY COMPLETION: The estimated blood loss was 10ml. All c atheters inserted during the procedure were removed. The patient tolerated the procedure well and was discharged from the lab. There were no complications. ?? Administered medications: ?? Fentanyl, for a total dose of 100mcg. ??Midazolam, for a total dose of 2mg. ??Contrast: ?? Isovue 370 50ml (total dose). ??Fluoroscopy dos e: ??36.2cGy. CORONARY ARTERIES: The coronary circulation is right domina nt. Left main: ??Normal. LAD: ??Minor luminal irregularities. Left circumflex: ??Minor luminal irregul arities. Right coronary: ??Minor luminal irregula rities. HEMODYNAMICS: + + + Stage description ? Condition 1:Condition 1 - + + + Arterial pressure s/d (m) 104/60 (78) ? + + + * Electronically signed by Rancho Hensley MD 2013-10-20 15:28 Procedure Note 10/20/[address] [place] [address] Catheterization Laboratory Study Diagnostic report Patient: Jorge Luis Sierra Study Date: : 1945 Referring Physician: Juan C Lee Diagnostic Attending: Rancho Hensley Interventional Attending: Delano Hensley Diagnostic Fellow: Matthew Jarrett ATTESTATION: Dr. Rancho Hensley was present and super vising for the entire procedure, I Dr. Matthew Jarrett was the initial author o f this report. I, Dr. Rancho Hensley have reviewed and agree with the finding s of this report. PROCEDURE PLAN: A diagnostic study was performed without intervention. RESEARCH STUDY: Patient is not enrolled in any research studies. IMPRESSIONS: Mild coronary artery disease. SUMMARY: 1. HPI and indications: Severe mitral re gurgitation. Pre operative coronary evaluation. 2. Left main: Normal. 3. LAD: Minor luminal irregularities. 4. Left circumflex: Minor luminal irregu larities. 5. Right coronary: Minor luminal irregul arities. RECOMMENDATIONS: Mitral valve surgery without CABG or PCI . HISTORY: Severe mitral regurgitation. Pre operati ve coronary evaluation. Risk factors: Family history of coronary artery diseas e. Former tobacco use. Hypertension. Dyslipidemia. Medications: MOLLY inhibitor s. Aspirin. Statins. Allergies: No known allergies. LABS, PRIOR TESTS, PROCEDURES AND SURGER Y: Serum creatinine (current admission) of 0.9 mg/dl. Prothrombin time (PT) of 10.7 sec. Hematocrit of 43.4 %. Platelet count of 159 th/ul. Serum potassium (K) of 4.6 mEq/l. Blood urea nitrogen of 20 mg/dl. Hemoglobin (pre-procedure) of 15 g/dl. International normalized rat io (INR) of 0.9. STUDY DATA: Study status: Cardiac cath: elective. Lo cation: Catheterization laboratory. Sex: male. Patient is 67yr old. Height: 179.1cm. Weight: 78.9kg. BSA: 1.99m^2. Procedures performed: Right femoral daniel ry access. Left coronary angiography. Right coronary angiography. Right common femoral angiography. PROCEDURE: 1. Initial setup. The patient was nury t to the laboratory in the fasting state. A baseline ECG was recorded. Darío face ECG leads, automatic cuff blood pressure measurements, and pulse oximet carlos signals were monitored. 2. Skin preparation. The planned punctur e sites were prepped with chlorhexidine and draped in the usual sterile manner. 3. Right femoral artery access. A 6F St. Dino ACT Ultimum sheath was advanced into the vessel. 4. Selective left coronary angiography. A 6F FL4 catheter was advanced into the left coronary vessel ostium under fluor oscopic guidance. Contrast was injected by hand. Images were obtained in multiple projections. 5. Selective right coronary angiography. A 6F AR Mod catheter was advanced into the right coronary vessel ostium under fluoroscopic guidance. Contrast was injected by hand. Images were obtained in multiple projections. 6. Selective right common femoral angiog kath, under fluoroscopic guidance. A 6F AR Mod catheter was advanced into the r ight common femoral artery. Contrast was injected by hand. Images were obtai joridn. 7. Right femoral artery hemostasis. 6 FR Angioseal VIP was used at the access site. STUDY COMPLETION: The estimated blood loss was 10ml. All c atheters inserted during the procedure were removed. The patient tolerated the procedure well and was discharged from the lab. There were no complications. Ad ministered medications: Fentanyl, for a total dose of 100mcg. Midazolam, for a total dose of 2mg. Contrast: Isovue 370 50ml (total dose). Fluoroscopy dose: 36.2cGy. CORONARY ARTERIES: The coronary circulation is right domina nt. Left main: Normal. LAD: Minor luminal irregularities. Left circumflex: Minor luminal irregular ities. Right coronary: Minor luminal irregulari ties. HEMODYNAMICS: + + + Stage description Condition1:Condition 1 - + + + Arterial pressure s/d (m) 104/60 (78) + + + * Electronically signed by Rancho Hensley MD 2013-10-20 15:28 Performing Organization Address City/State/ZIP Code Phon e Number [facility] documented in this encounter Visit Diagnoses Not on filedocumented in this encounter Care Teams Proposal Rep Relationship Specialty Start Date End Date Juan C Lee MD PCP - General 10/12/13 [address] [place] [address] documented as of this encounter
--- OUTSIDE RECORDS SUMMARY | 2021-12-31 15:10 | XMS_ITS | Encounter Summary ---
:1945 Author Organization [facility] Address [address] [place] [address] Care Team Providers Name Role Phone Juan C Lee MD Primary Care Provider Encounter Details Date Type Department Care Team Description 10/18/2013 Pre-Procedure [facility] Nat [place] Mitral v alve Orders Encounter Cardiothoracic Surgery MD rafaela [facility] (Primary Dx) [address] [place] [address] Social History Tobacco Use Types Packs/Day Years Used Date Former Smoker 1 60 Quit: 07/26/19 00 Smokeless Tobacco: Never Used Alcohol Use Standard Drinks/Week Comments Yes 17.5 (1 standard drink = 0.6 oz pure alc ohol) Sex Assigned at Date Recorded Not on file documented as of this encounter Ordered Prescriptions Prescription Sig Dispensed Refills Start Date End Date Chlorhexidine Gluconate 2 Use once daily beginning 5 d ays prior to surgery if test results positive. The physician's office will call to tell you if you need to fill this prescription. 1 Bottle 0 10/18/201310/21 % Liquid . mupirocin calcium Apply both nares for 1 Tube 0 10/19/19 14 10/21/2013 (BACTROBAN) 2 % nasal 5 days prior to ointment surgery if test results positive. The physician's office will call to tell you if you need to fill this prescription.. documented in this encounter Plan of Treatment Not on filedocumented as of this encounter Results SURGICAL MRSA/MSSA (10/18/2013 11:38 EDT) Specimen Nasal [facility]LE [facility] Description LAB Result No Staphylococcus ALE HAYNES aureus detected by LAB PCR. Specimen Performing Organization Address City/State/ZIP Code Phon e Number [facility] [address] [place] [address] [facility] [address] [place] [address] documented in this encounter Visit Diagnoses Diagnosis Mitral valve insufficiency - Primary Mitral valve disorders documented in this encounter Care Teams Boat Cleaner Relationship Specialty Start Date End Date Juan C Lee MD PCP - General 10/12/13 [address] [place] [address] documented as of this encounter
--- OUTSIDE RECORDS SUMMARY | 2021-12-31 15:10 | XMS_ITS | Encounter Summary ---
:1945 Author Organization [facility] Address [address] [place] [address] Care Team Providers Name Role Phone Juan C Lee MD Primary Care Provider Reason for Referral Vascular Lab (Routine) - Closed Specialty Diagnoses / Procedures Referred By Contact Refer red To Contact Diagnoses Carotid artery bruit Mitral valve disorders(424.0) Micaela Powell Procedures VL CAROTID/VERTEBRAL DUPLEX [address] [address] Referral ID Status Reason Start Date Expiration Date Visits Requ ested Visits Authorized [id number] Closed 10/14/2013 1 1 Reason for Visit Reason Comments Advice Only Encounter Details Date Type Department Care Team Description 10/14/2013 Office Visit [facility] Choco eKating id artery bruit (Primary Dx); Cardiothoracic Surgery MD Frank Mitral valve disorders; - Main [place] [address] Mitral insufficiency; [address] [facility] [place] [address] [address] [address] [place] [address] Social History Tobacco Use Types Packs/Day [...] Sign Reading Time Taken Comments Blood Pressure 144/81 10/14/2013911 EDT right arm Pulse 68 10/14/2013911 EDT regular Temperature 35.6 ??C (96.1 ??F) 10/14/2013911 EDT Respiratory Rate 16 10/14/2013911 EDT Oxygen Saturation 98% 10/14/2013 09 EDT Inhaled Oxygen Concentration - - Weight 79.4 kg (175 lb) 10/14/2013911 EDT Height 177.8 cm (5' 10) 10/14/2013911 EDT Body Mass Index 25.11 10/14/2013911 EDT documented in this encounter Discharge Diagnoses Diagnosis 785.9 CARDIOVAS SYS SYMP NEC[ICD-9-CM] 424.0 MITRAL VALVE DISORDER[ICD-9-CM] V72.81 PREOP CARDIOVASC EXAM[ICD-9-CM] documented in this encounter Patient Instructions Patient InstructionsMicaela Powell - 10/14/2013 10:01 EDT Continue to follow with your Doctors. You will be contacted for a cardiac catheterization appointment. You have been scheduled for a carotid ultrasound this AM in the Vascular Lab. Your Surgery with Dr. Keating will be on October 19, 2013 with detailed instructions to follow on October 18 when you have your cardiac catheterization. Dr. Keating's office number is documented in this encounter Discharge Disposition Disposition Code Departure Means Destination Auto Discharge documented in this encounter Progress Notes Micaela Powell - 10/15/2013 1237 EDT MRSA Nasal culture to be ordered on 10/18 in CVU as [facility] can't find the swab per Bottle House Cleaners Supervisor. Choco Ford MD - 10/14/2013 1007 EDT This office note has been dictated. Micaela irizarry - 10/14/2013 1005 EDT Pre-op teaching continued today with Pre-Op Instructions given and reviewed with patient and family. Note to follow regarding teaching. documented in this encounter H&P Notes Choco Keating MD - 10/14/2013 1032 EDT DIVISION OF [...] HISTORY: The patient is and lives in [place], [place]. He is a retired truck despatcher.He has a remote history of smoking but [...] - Choco Keating MD ln Dictation ID: [id number] cc: Jose Castro MD, [facility] Cardiology [address] [facility], [address] [id number] Juan C Lee MD, [facility] [address], [place] [address] documented in this encounter Miscellaneous Notes Addendum Note - Micaela Powell - 10/15/2013 1238 EDT Addended by: MICAELA POWELL on: 10/15/2013 12:38 Modules accepted: Orders documented in this encounter Plan of Treatment Not on filedocumented as of this encounter Procedures Procedure Name Priority Date/Time Associated Diagnosis Comme nts Routine 10/14/2013 10:39 Carotid artery bruit Results for this CAROTID/VERTEBRAL EDT Mitral valve procedure are in DUPLEX BILATERAL disorders the results section. documented in this encounter Results CAROTID/VERTEBRAL DUPLEX BILATERAL (10/14/2013 10:39 EDT) Anatomical Region Laterality Modality Other Specimen Narrative VASCULAR - 10/18/2013 9:14 EDT Vascular Diagnostic Laboratory [facility], Level 5 [address] [place] [address] Technologist: Honorio Ingram IMPRESSIONS 1. 1-49% stenosis in the bilateral inter nal carotid arteries. 2. The bilateral vertebral arteries are patent with normal antegrade flow. PROCEDURE: Carotid/vertebral arterial ultrasound; c omplete bilateral evaluation of the extracranial carotid system. ? 2D ul trasound, color flow Doppler, and spectral Doppler. INDICATION: Carotid stenosis without infarct. Pre-op for heart valve replacement. HISTORY: Mitral valve insufficiency. RISK FACTORS: Former tobacco use. Hypertension. ??Hype rlipidemia. DOPPLER FINDINGS: + +-------+------+------- -------+ Location ? V sys ?? V ed ?? F low analysis + +-------+------+------- -------+ Right CCA - prox 121cm/s 19cm/s ? + +-------+------+------- -------+ Right CCA - dist 111cm/s 18cm/s ? + +-------+------+------- -------+ Right ICA - prox 89cm/s 16cm/s ? + +-------+------+------- -------+ Right ICA - dist 82cm/s 21cm/s ? + +-------+------+------- -------+ Right ECA - prox 130cm/s 13cm/s ? + +-------+------+------- -------+ Right vertebral 58cm/s 9cm/s Antegra de flow + +-------+------+------- -------+ Right subclavian 118cm/s ? + +-------+------+------- -------+ Right innominate 103cm/s 11cm/s ? + +-------+------+------- -------+ Left CCA - prox 105cm/s 18cm/s ? + +-------+------+------- -------+ Left CCA - dist 106cm/s 20cm/s ? + +-------+------+------- -------+ Left ICA - prox 71cm/s 22cm/s ? + +-------+------+------- -------+ Left ICA - dist 81cm/s 22cm/s ? + +-------+------+------- -------+ Left ECA - prox 139cm/s 12cm/s ? + +-------+------+------- -------+ Left vertebral ?? 69cm/s 21cm/s Antegr bobbi flow + +-------+------+------- -------+ Left subclavian 144cm/s ? + +-------+------+------- -------+ * VELOCITY RATIOS: + + + -+ ? Right, V sys Lef t, V sys + + + -+ Max ICA/mid CCA 0.8 ? 0.6 ? + + + -+ * GREYSCALE FINDINGS: Right internal carotid: ??Well visualize d. Irregularheterogeneous plaque. Antegrade flow. Left internal carotid: ??Well visualized . Irregularheterogeneous plaque. Antegrade flow. Electronically signed by: Honorio Cole [id number] Procedure Note 10/18/2013 Vascular Diagnostic Laboratory [facility], Level 5 [address] [place] [address] Technologist: Honorio Ingram IMPRESSIONS 1. 1-49% stenosis in the bilateral inter nal carotid arteries. 2. The bilateral vertebral arteries are patent with normal antegrade flow. PROCEDURE: Carotid/vertebral arterial ultrasound; breonna ompmaegan bilateral evaluation of the extracranial carotid system. 2D ultrasou nd, color flow Doppler, and spectral Doppler. INDICATION: Carotid stenosis without infarct. Pre-op for heart valve replacement. HISTORY: Mitral valve insufficiency. RISK FACTORS: Former tobacco use. Hypertension. Hyperl ipidemia. DOPPLER FINDINGS: + +-------+------+------- -------+ Location V sys V ed Flow analysis + +-------+------+------- -------+ Right CCA - prox 121cm/s 19cm/s + +-------+------+------- -------+ Right CCA - dist 111cm/s 18cm/s + +-------+------+------- -------+ Right ICA - prox 89cm/s 16cm/s + +-------+------+------- -------+ Right ICA - dist 82cm/s 21cm/s + +-------+------+------- -------+ Right ECA - prox 130cm/s 13cm/s + +-------+------+------- -------+ Right vertebral 58cm/s 9cm/s Antegra de flow + +-------+------+------- -------+ Right subclavian 118cm/s + +-------+------+------- -------+ Right innominate 103cm/s 11cm/s + +-------+------+------- -------+ Left CCA - prox 105cm/s 18cm/s + +-------+------+------- -------+ Left CCA - dist 106cm/s 20cm/s + +-------+------+------- -------+ Left ICA - prox 71cm/s 22cm/s + +-------+------+------- -------+ Left ICA - dist 81cm/s 22cm/s + +-------+------+------- -------+ Left ECA - prox 139cm/s 12cm/s + +-------+------+------- -------+ Left vertebral 69cm/s 21cm/s Antegrad e flow + +-------+------+------- -------+ Left subclavian 144cm/s + +-------+------+------- -------+ * VELOCITY RATIOS: + + + -+ Right, V sys Left, V sys + + + -+ Max ICA/mid CCA 0.8 0.6 + + + -+ * GREYSCALE FINDINGS: Right internal carotid: Well visualized. Irregularheterogeneous plaque. Antegrade flow. Left internal carotid: Well visualized. Irregularheterogeneous plaque. Antegrade flow. Electronically signed by: Honorio Cole [id number] Performing Organization Address City/State/ZIP Code Phon e Number [facility] VASCULAR IMAGING [facility] V[facility] documented in this encounter Visit Diagnoses Diagnosis Carotid artery bruit - Primary Other symptoms involving cardiovascular system Mitral valve disorders(424.0) Mitral valve disorders Mitral insufficiency Mitral valve disorders Preop cardiovascular exam Pre-operative cardiovascular examination documented in this encounter Care Teams [employer] Supervisor Relationship Specialty Start Date End Date Juan C Lee MD PCP - General 10/12/13 [address] [place] [address] documented as of this encounter
--- OUTSIDE RECORDS SUMMARY | 2021-12-31 15:10 | XMS_ITS | Encounter Summary ---
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 Diagnostic for diabetes (if confirmed) The A1c goal for non adults in general is <7%. The A1c goal for selected patients may be significantly lower than 7% if this can be achieved without significant hypoglycemia or other adverse effects of treatment. Est Avg Glucose 108 mg/dl [facility] Comment: eAG represents the A1c result expressed as average glucose in mg/dl. Specimen Blood specimen (specimen) Performing Organization Address [facility]/ZIP Code Phon e Number [facility] [address] [place] [address] SERVICES [facility] [address] [place] [address] UA REFLEX (10/18/2013 11:40 EDT) Pathologist Sig nature UA Billing Microscopic not [facility] indicated. Specimen Performing Organization Address [facility]/ZIP Code Phon e Number [facility] [address] [place] [address] SERVICES [facility] [address] [place] [address] URINE CULTURE IF UA POSITIVE - NON POCT URINALYSIS ONLY (10/18/2013 11:40 EDT) Culture if Culture not [facility] Indicated indicated by urinalysis results. Specimen Urine (substance) - Urine Performing Organization Address [facility]/ZIP Code Phon e Number [facility] [address] [place] [address] SERVICES [facility] [address] [place] [address] URINALYSIS (10/18/2013 11:40 EDT) Pathologist Sig nature Color, UA Yellow [facility] Clarity, UA Clear [facility] Glucose, UA Neg Neg [facility] Bilirubin, UA Neg Neg [facility] Ketones, UA Neg Neg [facility] Specific [place], 1.010 1.001 - 1.035 [facility] Urine Blood, UA Neg Neg [facility] pH, UA 6.5 4.6 - 8.0 [facility] Protein, UA Neg Neg [facility] Urobilinogen, UA 0.2 0.2 - 1.0 [facility] E.U./dl Nitrite, UA Neg Neg [facility] Leuk Esterase Neg Neg [facility] Specimen Urine (substance) - Urine Performing Organization Address City/[facility]/ZIP Code Phon e Number [facility] [address] [place] [address] SERVICES [facility] [address] [place] [address] SURGICAL MRSA/MSSA (10/18/2013 11:38 EDT) Specimen Nasal [facility] Description LAB Result No Staphylococcus [facility] aureus detected by LAB PCR. Specimen Performing Organization Address City/[facility]/ZIP Code Phon e Number [facility] [address] [place] [address] SERVICES [facility] [address] [place] [address] EKG 12-LEAD (10/18/2013 7:08 EDT) Specimen Narrative FA EKG - 10/21/2013 10:47 EDT ?[facility] ? Test Date: ?2013-10-18 Pat Name: ? JORGE LUIS SIERRA ? Department: ?? CV[facility] ? Room: ? CVU06 Gender: ? M ?Manager Study: ?? [id number] : ?1945 ? Requested By: NIKKI REYES MD Order Number: [id number] ? Reading : ?? BETTYE STEWARD MD ? Measurements Intervals ?[place] ? Rate: ? 68 ? P: ?41 NM: ? 213 ?QRS: ?11 QRSD: ? 101 ?T: ?42 QT: ? 369 ? QTc: ?394 ? Interpretive Statements SINUS RHYTHM WITH FIRST DEGREE AV BLOCK No previous ECG available for comparison I have reviewed the tracing and have eit her agreed or edited the findings in this report. Electronically Signed On 10:47:49 EDT by BETTYE STEWARD MD. Procedure Note Bettye Steward Jr., MD - 10/21/2013 [facility] Test Date: 2013-10-18 Pat Name: JORGE LUIS SIERRA Department: CV[facility] Room: [facility] Gender: M Manager Study: [id number] : 1945 Requested By: NIKKI BOYCE MD Order Number: [id number] Reading MD: January STEWARD MD Measurements Intervals [place] Rate: 68 P: 41 NM: 213 QRS: 11 QRSD: 101 T: 42 QT: 369 QTc: 394 Interpretive Statements SINUS RHYTHM WITH FIRST DEGREE AV BLOCK No previous ECG available for comparison I have reviewed the tracing and have eit her agreed or edited the findings in this report. Electronically Signed On 10:47:49 EDT by BETTYE STEWARD MD. Performing Organization Address City/[facility]/ZIP Code Phon e Number [facility] EKG [facility] EKG PROTIME (10/18/2013 6:50 EDT) Pro Time 10.7 9.5 - 13.1 [facility] secs I.N.R. 0.9 0.9 - 1.1 [facility] Comment: Ratio Moderate Intensity Coumadin INR = 2.0-3.0 Adjustments in anticoagulant therapy dose should be based upon the INR and NOT the Pro Time. Specimen Blood specimen (specimen) Performing Organization Address [facility] Phon e Number [facility] [address] [place] [address] SERVICES [facility] [address] [place] [address] HEMAGRAM (10/18/2013 6:50 EDT) Pathologist Sig nature WBC 5.80 4.0 - 10.4 K/cmm [facility] RBC 4.67 4.36 - 5.78 M/cmm [facility] Hemoglobin 15.0 13.8 - 17.3 gm/dl [facility] HCT 43.4 39.5 - 50.2 % [facility] MCV 93 81 - 95 fl [facility] MCH 32.1 27.6 - 33.0 pg [facility] MCHC 34.5 32.8 - 36.4 gm/dl [facility] PLT 159 141 - 320 K/cmm [facility] RDW-CV 12.6 11.8 - 14.1 % [facility] Specimen Blood specimen (specimen) Performing Organization Address [facility] Phon e Number [facility] [address] [place] [address] SERVICES [facility] [address] [place] [address] CREATININE (10/18/2013 6:50 EDT) Pathologist Sig nature Creatinine 0.90 0.66 - 1.25 mg/dl [facility] GFR, Calculated >60 >60 ml/min/1.73m2 [facility] Specimen Blood specimen (specimen) Performing Organization Address City/[facility] Phon e Number [facility] [address] [place] [address] SERVICES [facility] [address] [place] [address] BUN (10/18/2013 6:50 EDT) Pathologist Sig nature BUN 20 10 - 26 mg/dl [facility] Specimen Blood specimen (specimen) Performing Organization Address [facility] Phon e Number [facility] [address] [place] [address] SERVICES [facility] [address] [place] [address] ELECTROLYTES (10/18/2013 6:50 EDT) Pathologist Sig nature Sodium 141 136 - 145 mEq/L [facility] Potassium 4.6 3.5 - 5.0 mEq/L [facility] Chloride 105 96 - 110 mEq/L [facility] CO2 26 24 - 32 mEq/L [facility] Specimen Blood specimen (specimen) Performing Organization Address [facility] Phon e Number [facility] [address] [place] [address] SERVICES [facility] [address] [place] [address] documented in this encounter Visit Diagnoses Diagnosis Mitral valve insufficiency Mitral valve disorders documented in this encounter Administered Medications Inactive Administered Medications - up to 3 most recent administrations Medication Order MAR Action Action Date Dose Rate Site sodium chloride 0.9 % (NS) Rate Change 10/18/2013 9:11 EDT 30 mL/hr 30 mL/hr infusion at 30 mL/hr, 30 mL/hr, intravenous, CONTINUOUS, Starting on Fri10/18/13 at 0700, Until Fri10/18/13 at 1440, Routine New Bag 10/18/2013 6:50 EDT 30 mL/hr 30 mL/hr documented in this encounter Active and Recently Administered Medications Times are shown in EDT. Continuous Medication Order 10/16/2013 10/17/2013 10/18/2013 sodium chloride 0.9 % (NS) infusion (CANCELED) 0650 (New Bag - Provider: Cat Akins, AARON)0911 (Rate Change - Provider: Maricruz Gonzalez - Comment: 700 mls up from pathology laboratory director) at 30 mL/hr, 30 mL/hr, intravenous, CONT INUOUS, Starting Fri10/18/13 at 0700, Until Fri10/18/13 at 1440, Routine documented in this encounter Orders Medications Ordered That Might Not Have Count Last Ord ered Date First Ordered Date Been Administered acetaminophen (TYLENOL) tablet 650 mg 1 10/18/2013 lidocaine-EPINEPHrine 2 %-1:100,000 1 10/18/2013 injection 5-10 mL Procedures Count Last Ordered Date First Ordered Date ECG REPORT - SCANNED 2 10/25/2013 INVASIVE CARDIOLOGY REPORT-SCANNED 1 10/25/2013 Nursing Count Last Ordered Date First Ordered Date INSERT PERIPHERAL IV 1 10/18/2013 VTE PHARMACOLOGIC PROPHYLAXIS CURRENTLY 1 10/19/19 14 ORDERED OR ON ALTERNATIVE THER Transfer Count Last Ordered Date First Ordered Date NOTIFY PPS OF DISCHARGE COMPLETE 1 10/18/2013 Discharge Count Last Ordered Date First Ordered Date DISCHARGE PATIENT 1 10/18/2013 documented in this encounter Care Teams Web Database Developer Relationship Specialty Start Date End Date Juan C Lee MD PCP - General 10/12/13 [address] [place] [address] documented as of this encounter
--- OUTSIDE RECORDS SUMMARY | 2021-12-31 15:10 | XMS_ITS | Encounter Summary ---
:1945 Author Organization [facility] Address [address] [place] [address] Care Team Providers Name Role Phone Unknown, Provider Primary Care Provider Encounter Details Date Type Department Care Team Description 02/28/2012 Results Only [facility] Trish Randhawa, DO [phone] [facility] [facility] [address] [place], [place] [id number] Social History Tobacco Use Types Packs/Day Years Used Date Never Assessed Sex Assigned at Date Recorded Not on file documented as of this encounter Plan of Treatment Not on filedocumented as of this encounter Procedures Procedure Name Priority Date/Time Associated Diagnosis Comme [facility] SURGICAL PATHOLOGY Routine 02/28/2012 0:00 EDT Re sults for this procedure are i n the results section. documented in this encounter Results SURGICAL PATHOLOGY (02/28/2012 0:00 EDT) Pathology Report: SURGICAL PATHOLOGY REPORT A[facility] Reports generated via electronic interface contain doug ginal data; LAB however they are lacking the format of the original re port. Caution should be taken when reading/interpreting unfo rmatted reports. Name: ? JORGE LUIS SIERRA ? Accession #: ? [id number] ? : ? 1945 (Age: 66) ??M ? Collect Date: ? 02/28/2012 ? Location: ? [facility] ? Receive Date: ? 012 ? Provider: TRISH RANDHAWA DO Copy to: MAGGIE KIM MD ? Final Pathologic Diagnosis: A. ?Colon, ascending, polyp, biopsy: 1. ?Tubular adenoma. B. ?Colon, transverse, polyps, biopsies: 1. ?Tubular adenomas. C. ?Colon, descending, polyps, biopsies: 1. ?Fragments of tubular adenomas. D. ?Colon, sigmoid, polyps, biopsies: 1. ?Fragments of tubular adenomas. Document reviewed and electronically signed by: DANISHA NOBLES MD Report ??Date: 03/04/2012 10:37 By the signature above, the attending physician certif ies that he/she has personally conducted a gross and/or microscopic examin ation of the described specimens and rendered or confirmed the above diagnosi s. Specimen(s) Received: A. ?Ascending colon polyp (#1) B. ? Transverse colon polyp x3 (#2) C. ? Descending colon polyp x2 (#3) D. ? Sigmoid colon polyp x2 (#4) Clinical History: ? Heme pos. stools Gross Description: ? Received in formalin labelled Jorge Luis Sierra nd #1-ascending colon polyp is a singh-pink irregular soft tissue fragm ent measuring 0.4 x 0.3 x 0.2 cm. ??The specimen is entirely submitted as (A). Received in formalin goldie Jorge Luis Givens and #2-transverse colon polyp x3 are four singh-pink irregular soft tissue fragments ranging from 0.2 x 0.2 x 0.1 cm to 0.5 x 0.3 x 0.3 cm. ?? The specimen is entirely submitted as (B1) and (B2). Received in formalin labelled Jorge Luis Sierra and #3-descending colon polyps is a 0.4 x 0.4 x 0.3 cm irre gular singh-pink polypoid tissue. ??Also received is a 0.3 x 0.2 x 0.1 cm irregular singh-pink tissue fragment. ??The margins of the polypoid tissue are inked. ? ?The specimen is entirely submitted as (C1) polypoid tissue intact and (C2) tissue fragment intact. Received in formalin labelled Jorge Luis Sierra an d #4-sigmoid colon polyp x2 are six singh-pink irregular s oft tissue fragments ranging from 0.2 x 0.2 x 0.1 cm to 0.8 x 0.4 x 0.3 cm. ??The specimen is entirely submitted as (D1) and (D2). (Deborah Ma)/mpl End of Report Specimen Performing Organization Address City/State/ZIP Code Phon e Number [facility] [address] [place] [address] SERVICES [facility] [address] [place] [address] documented in this encounter Visit Diagnoses Not on filedocumented in this encounter Care Teams Fabric Stretcher Relationship Specialty Start Date End Date Unknown, Provider, PCP - General 02/28/12 10/11/13 documented as of this encounter
== END 2021-12-31 15:08 | disposition home or self-care (01) ==
LOC: DIORS 15:08
PROVIDERS: PCP Internal Medicine; Referring Provider Internal Medicine; Visit Provider Student in an Organized Health Care Education/Training Program
DX: S82.041A Displaced comminuted fracture of right patella, initial encounter for closed fracture (principal); X58.XXXA Exposure to other specified factors, initial encounter; Z47.89 Encounter for other orthopedic aftercare
CPT/HCPCS: 73560

== ENCOUNTER 2022-01-15 11:04 | Emergency (ER) | payer MEDICARE, OTHER, SELFPAY ==
[2022-01-15 11:01] VITALS: BP 96/59; PULSE 75; RESP 18; O2SAT 97
--- NOTE | 2022-01-15 11:15 | DI.RAD_ITS ---
Exam(s) XR PORTABLE CHEST AP EXAM: XR PORTABLE CHEST AP CLINICAL HISTORY: shortness of breat TECHNIQUE: 2D digital imaging was performed of the chest. One image was obtained. An AP view was ob tained. COMPARISON: No exams were available for comparison FINDINGS: MEDIASTINUM: Normal. HEART: Normal. There is a cardiac valve replacement. PULMONARY VASCULATURE: Normal. LUNGS: No focal consolidating infiltrates are seen. There is plate atelectasis or scarring in the ri ght lung base. PLEURAL SPACE: No pleural effusion or pneumothorax. BONE:Within normal limits for the patient's age. OTHER FINDINGS:There is elevation of the right hemidiaphragm. IMPRESSION: No acute pulmonary findings. DATA REPOSITORY: RADIATION DOSE DELIVERED:
[2022-01-15 11:50] LABS: Abs Immature Grans 0.04 10^3/uL (0.0-0.06); Absolute Basophil Count 0.04 10^3/uL (0.0-0.2); Absolute Eosinophil Count 0.01 10^3/uL (0.0-0.7); Absolute Lymphocyte Count 1.77 10^3/uL (1.2-3.4); Absolute Monocyte Count 0.63 10^3/uL (0.1-0.8); Absolute Neutrophil Count 6.01 10^3/uL (1.2-6.7); Basophils % 0.5; Eosinophils % 0.1; HCT 31.7 % (40.0-50.0); HGB 10.4 g/dL (13.5-17.5); Immature Grans % 0.5; Lymphocytes % 20.8; MCH 31.2 pg (27.0-33.0); MCHC 32.8 % (32.0-36.0); MCV 95 fL (80-95); MPV 9.2 fL (8.0-11.0); Monocytes % 7.4; Neutrophils % 70.7; Platelet Count 170 10^3/uL (130-400); RBC 3.33 10^6/uL (4.36-5.78); RDW 12.8 % (11.8-14.1); RDW-SD 45.1 fL
[2022-01-15 12:14] LABS: ALT 44 U/L (16-63); AST 33 U/L (15-37); Albumin 1.7 g/dL (3.4-5.0); Alkaline Phosphatase 50 U/L (46-116); Anion Gap 5.1 mmol/L (3-11); BUN 26 mg/dL (7-18); Bilirubin, Total 0.8 mg/dL (0.2-1.0); CO2 29.9 mmol/L (21.0-32.0); Calcium 8.5 mg/dL (8.5-10.1); Chloride 97 mmol/L (98-107); Glucose 125 mg/dL (74-106); Magnesium 1.7 mg/dL (1.8-2.4); Potassium 4.4 mmol/L (3.5-5.1); Sodium 132 mmol/L (136-145); TSH 0.73 uIU/mL (0.36-3.74); Troponin I < 50 ng/L (<or=60)
[2022-01-15 12:40] LABS: Bilirubin Negative (Negative); Blood Negative (Negative); Clarity Clear (Clear); Glucose Negative (Negative); Ketones Negative (Negative); Leukocyte Esterase Negative (Negative); Nitrite Negative (Negative)
[2022-01-15 12:48] LABS: Bacteria Rare HPF (Negative); C & S Indicated? No; Casts 0-2 Coarse Granular LPF (Negative); Crystals Negative HPF (Negative); Epithelial Cells Rare HPF (Negative); Mucus Trace (Negative); RBC 0-2 HPF (0-2); WBC 0-2 HPF (0-5)
[2022-01-15 13:43] VITALS: BP 107/71; PULSE 76; RESP 14; O2SAT 98
[2022-01-15] MEDS: Normal Saline 500 ML 1000 ML IV (13:47)
[2022-01-15] MEDS: Normal Saline 500 ML IV (14:00)
--- NOTE | 2022-01-15 14:27 | IN_ITS ---
Date of service: 01/15/22 Time of Service: 14:27 PT Notes Visit Reasons: [facility] In[facility] Initial Evaluation Date: 01/15/2022 Referring Doctor: EDUARDO Caputo PT Orders: PT CONSULT: Safety consult for discharge Precautions: Fall. Standard. Activity as tolerated. Patient Profile/Admitting Diagnosis: Jorge Luis is a 76-year-old male who is status post ORIF of a right patellar fracture on 12/18/2021 who came to the ED due to what daughter believes as failure to thrive. Patient was referred referred for physical therapy for mobility assessment and to evaluate safe discharge destination. PMHX: All Active Problems? Comminuted fracture of right patella (Acute) Encounter for colonoscopy due to history of adenomatous colonic polyps (Acute) Abrasion (Acute) Medical History? Adenomatous colon polyp Hyperlipidemia Hypertension Surgical History? Appendectomy Colonoscopy - MAC (07/29/16) S/P balloon mitral valvuloplasty 2013 @ [facility] F/U with PCP anuallySigmoidoscopy (04/22/16) MAC, Attempted colonoscopy Social History/Home Situation: Lives alone in a private home, his daughter visits him frequently.? His bathroom and bedroom are on the first floor and there is no steps leading into the house.? He has a combo shower tub with sliding glass doors, but is uninterested in a shower chair, flexible shower hose etc.? Equipment Owned/DME: [facility] Subjective: Per daughter, patient has fallen twice since he went home on 12/19/2021. He has not had a bath since he went home. Daughter si concerend about the lack of ability to care for self and to safely thrive at home. She hopes that her father can be admitted to the hospital and transferred to a SNF where he will receive the care he needs. Objective: General Observation: Supine on stretcher. Knee immobilizer in place on the R LE. IV line through R UE. Mental Status: Alert and oriented as to personad place. Able to follow single step command Pain: 4-5/10 in R knee that did not limit today's ambulation distance Vital Signs: WNL as closley monitored via tele ROM: Right Upper Extremity: Shoulder Flexion lacks the last 50% of AROM. Shoulder abduction lacks the last 50% of AROM. Elbow flexion WFL. Wrist flexion WFL. Functional opening and closing of hand WFL. Left Upper Extremity: Shoulder Flexion lacks the last 50% of AROM. Shoulder abduction lacks the last 50% of AROM. Elbow flexion WFL. Wrist flexion WFL. Functional opening and closing of hand WFL. Right Lower Extremity: Hip flexion 0-100 degrees. Hip abduction WFL. Knee flexion NT. Ankle dorsiflexion WFL. Ankle plantarflexion WFL. Left Lower Extremity: Hip flexion WFL. Hip abduction WFL. Knee flexion WFL. Ankle dorsiflexion WFL. Ankle plantarflexion WFL. Strength: Right Upper Extremity: Shoulder flexors 3-/5. Shoulder abductors 3-/5. Elbow flexors 4-/5. Elbow extensors 4-/5. Security Installation Technician strong. Left Upper Extremity: Shoulder flexors 3-/5. Shoulder abductors 3-/5. Elbow flexors 4-/5. Elbow extensors 4-/5. Security Installation Technician strong. Right Lower Extremity: Hip flexors 3-/5. Hip abductors 3+/5. Knee flexors NT. Knee extensors NT. Ankle dorsiflexors 4-/5. Ankle plantarflexors 4-/5. Left Lower Extremity: Hip flexors 4-/5. Hip abductors 4-/5. Knee flexors 4-/5. Knee extensors 4-/5. Ankle dorsiflexors 4-/5. Ankle plantarflexors 4-/5. Bed Mobility/Transfers: Rolling standby assist Supine to sit standby assist Sit to supine standby assist Sit to stand contact-guard assist Stand to sit contact-guard assist Bed to reclining chair contact-guard assist Gait: Instructed patient with level surface ambulation of 200 feet requiring contact-guard assist. Anna decreased. Step height decreased decreased. Step length decreased. Balance: Static Sitting: Good Dynamic Sitting: Good fair fair Static Standing: Dynamic Standing: Special Tests: Mobility Limitations Standardized Measure [facility] 6 clicks Basic Mobility Inpatient Short Form: Raw Score: 18 CMS Score: 47% deficit Informed Consent/Education: Patient was instructed in purpose of PT consult and plan of care. Agreeable to proceed with established PT POC to achieve personal goals. Assessment: Patient presents with clinical signs and symptoms consistent with current/admitting diagnoses that have resulted to mobility limitations, gait instability, generalized weakness, and overall ADL decline as demonstrated by the following impairment level findings: 1. Decreased strength to B UE/LE major muscle groups 2. Impaired sitting/standing balance 3. Impaired activity tolerance 4. Limitation of joint range of motion in R knee Impairments are contributing to the following functional limitations: 1. Decline in bed mobility skills 2. Decline in transfer skills 3. Difficulty with ambulation without assistive device and physical assistance 4. Increased completion time for mobility ADL performance 5. Increased risk for falls 6. Difficulty with managing steps alone safely Patient is assessed as a [address] moderate complexity based on the following: History: 76-year-old male with past medical history as indicated above Examination: Demonstrable impairment in strength, balance, and mobility level with underlying impairments and functional limitations as exhibited above as well as deficit score of 47% utilizing the [facility] Mobility Inpatient Short Form Presentation: Evolving Decision Makin moderate complexity Goals: N/A. PT evaluation only for safe discharge recommendations. Plan of Care/Treatment Plan: N/A. PT evaluation only for safe discharge recommendations. DISCHARGE RECOMMENDATIONS: [] Home with no services [] [] Home with services [specify] [] Home with outpatient PT [] [X] SNF for continued rehabilitation. Patient will benefit from SNF vs. supervised home setting in order to minimize fall risk, manage basic and instrumental ADLs better and reduce re-hospitalization rate. [] Hair Worker Care [] [] SNF versus LTC based on ability to participate and progress [] TREATMENT CODE/TIME: 44257 x 20 minutes, 06598 x 11 minutes beginning at 14:27 PM. Thank you for the opportunity to participate in the care of this patient. Naina Mane PT, DPT, CLT [facility] [place], [place]
[2022-01-15 15:25] LABS: Troponin I < 50 ng/L (<or=60)
--- NOTE | 2022-01-15 15:29 | W.ED.GENAD ---
Discharge Plan Disposition Patient Disposition: HOME Condition: Stable Discharge Details Clinical Impression: Abnormal weight loss, Anorexia, Patellar fracture Primary Care Provider: Juan C Lee ED Provider: Jenna Curtis Home Meds and New Rx's Prescriptions: Continued metoprolol tartrate 50 MG tablet 50 mg PO BID atorvastatin 20 mg tablet 40 mg PO DAILY tramadol 50 mg tablet 50 mg PO Q6H PRN (Reason: severe postoperative pain) Qty: 8 0RF Rx Instructions: Take one tablet up to every 4 hours as needed for severe pain acetaminophen 500 mg tablet 500 mg PO Q6H PRN (Reason: pain) Qty: 60 2RF ibuprofen 600 mg tablet 600 mg PO TID PRN (Reason: pain) Qty: 60 0RF aspirin 81 mg tablet,delayed release (DR/EC) 81 mg PO BID Qty: 60 0RF multivitamin Capsule 1 cap PO DAILY Discharge Instructions Additional Instructions: Please follow-up with your primary care doctor boost and ensure several times daily drink at least 8 8oz of water daily Referrals: Juan C Lee MD [Primary Care Provider] - Discharge Data Discharge Date/Time-TO BE ENTERED AT DEPARTURE: 01/15/22 15:42 Medical Decision Making Sodium 132, BUN 26, likely consistent with dehydration When compared to prior Discussed with assistant child care teacher and unfortunately this patient does not meet criteria for hospitalization which is needed for rehabilitation center PT assessment performed patient able to ambulate with slow steady gait with walker Patient encouraged to have boost or ensure 3 times daily He was offered to stay with outpatient patient, however they declined as this stay was an attempt for inpatient rehab global marketing operations manager was involved for approximately 3 hours in this case and made every attempt to admit patient to the hospital pt is alert, oriented, and of decisional capacity throughout this encouter and expresses comfort with this plan Patient appears depressed, he declines occupational therapy with the resources significant for I did place a call to pt's pcp, but unavailable. relayed information to Martine, triage maeve given low threshold to return with new or worsening complaints Medical Records Medical records reviewed: Yes I reviewed the patient's medical records. Lab Data Lab results reviewed: Yes I reviewed the patient's lab results. HPI General Date/Time Provider Initiated Documentation: 01/15/22 11:14. HPI Narrative: 76-year-old with past medical history of patellar fracture, hypertension, hyperlipidemia presents for reported 30 pound weight, weakness, and reported anorexia for the past month. Patient presents with daughter out of concern for failure to thrive at home. Patient lives independently with home health care since his patellar surgery approximately a month ago. Patient states he has decreased interest eating or drinking secondary to the lack of contrast. He denies any significant cough, fever, chills, vomiting. He states that he has not ambulated much secondary to discomfort in his right lower extremity which is not new for patient. Daughter is concerned that patient is not caring for himself performing ADLs. She specifically states pt has not showered for the past month. Daughter is hoping for patient placement at a rehabilitation center patient can have appropriate care and intervention. Related Data Home Medications Medication Instructions Recorded Confirmed metoprolol tartrate 50 mg tablet 50 mg PO BID 01/13/15 12/31/21 atorvastatin 20 mg tablet 40 mg PO DAILY 05/03/20 12/31/21 multivitamin 1 cap PO DAILY 12/16/21 12/31/21 acetaminophen 500 mg tablet 500 mg PO Q6H PRN pain #60 tabs 12/18/21 12/31/21 ibuprofen 600 mg tablet 600 mg PO TID PRN pain #60 tabs 12/18/21 12/31/21 tramadol 50 mg tablet 50 mg PO Q6H PRN severe 12/18/21 12/31/21 postoperative pain #8 tabs aspirin 81 mg tablet,delayed 81 mg PO BID #60 tabs 12/19/21 12/31/21 release Previous Rx's Medication Instructions Recorded acetaminophen 500 mg tablet 500 mg PO Q6H PRN pain #60 tabs 12/18/21 ibuprofen 600 mg tablet 600 mg PO TID PRN pain #60 tabs 12/18/21 tramadol 50 mg tablet 50 mg PO Q6H PRN severe 12/18/21 postoperative pain #8 tabs aspirin 81 mg tablet,delayed 81 mg PO BID #60 tabs 12/19/21 release Allergies Allergy/AdvReac Type Severity Reaction Status Date / Time No Known Allergies Allergy Unverified 12/31/21 13:47 General Stated Complaint: GenMedical TO: 3 Review of Systems All systems reviewed & are unremarkable except as noted in HPI and below PFSH All Active Problems (Updated 01/16/22 @ 00:08 by RACHELLE BILLINGSLEY) Abnormal weight loss (Acute) Anorexia (Acute) Patellar fracture (Acute) Comminuted fracture of right patella (Acute) s/p ORIF of right patella DOS: 12/18/21 Encounter for colonoscopy due to history of adenomatous colonic polyps (Acute) Medical History Adenomatous colon polyp Hyperlipidemia Hypertension Surgical History Appendectomy Colonoscopy - MAC (07/29/16) S/P balloon mitral valvuloplasty 2013 @ [facility] F/U with PCP anually Sigmoidoscopy (04/22/16) MAC, Attempted colonoscopy Social History Smoking/Tobacco Use Status: Former Tobacco Use Quit Date: 07/07/99 Smoking risk assessment performed?: Yes Alcohol Intake: current Alcohol Intake frequency: 0-2 drinks per day Alcohol type: beer and hard liquor Drug use: Never Substance use type: does not use Household members: spouse current occupation: retired Current gender identity: male Do you feel safe at home: No (Does not feel safe living alone given current conditions) Additional Social history: lives alone Exam Const General: cooperative, comfortable, no acute distress and frail appearing HENMT Other: moist mucous membranes Eyes Sclera: sclerae normal Chest Chest: normal inspection of the chest Resp Effort & Inspection: normal respiratory effort Auscultation: clear to auscultation bilaterally Cardio Rate: regular rate Rhythm: regular rhythm GI Inspection: normal to inspection Skin General skin exam: no rashes or lesions noted Neuro General: patient alert and patient oriented x3 Extrem Other: Right lower extremity with mild swelling and bruising postsurgically, nontender neurovascularly intact Psych Appearance: disheveled Mental Status: mental status grossly normal Speech and Movement: speech and movement normal Other: Denies suicidal ideation or depressed Course Vital Signs Vital signs: Vital Signs Pulse 75 01/15/22 11:01 Respiratory Rate 18 01/15/22 11:01 Blood Pressure 96/59 L 01/15/22 11:01 Pulse Oximetry 97 01/15/22 11:01 Pulse 76 01/15/22 13:43 Respiratory Rate 14 01/15/22 13:43 Respiratory Effort Non-Labored 01/15/22 14:05 Respiratory Depth Normal 01/15/22 14:05 Respiratory Pattern Normal 01/15/22 14:05 Blood Pressure 107/71 01/15/22 13:43 Blood Pressure Position Sitting 01/15/22 11:01 Pulse Oximetry 98 01/15/22 13:43 Oxygen Delivery Method Room Air 01/15/22 13:43 Oxygen Flow Rate 0 01/15/22 13:43 Lab/Test Results Lab/Test Results: Laboratory Tests Range/Units 01/15/22 01/15/22 01/15/22 11:43 11:43 12:28 WBC (4.4-10.8) 10^3/uL 8.50 RBC (4.36-5.78) 10^6/uL 3.33 L Hgb (13.5-17.5) g/dL 10.4 L Hct (40.0-50.0) % 31.7 L MCV (80-95) fL 95 MCH (27.0-33.0) pg 31.2 MCHC (32.0-36.0) % 32.8 RDW (11.8-14.1) % 12.8 Plt Count (130-400) 10^3/uL 170 MPV (8.0-11.0) fL 9.2 Immature Gran % 0.5 Neutrophils % 70.7 Lymphocytes % 20.8 Monocytes % 7.4 Eosinophils % 0.1 Basophils % 0.5 Nucleated RBC % (0.0-0.3) % 0.0 Absolute Neutrophils (1.2-6.7) 10^3/uL 6.01 Absolute Lymphocytes (1.2-3.4) 10^3/uL 1.77 Absolute Monocytes (0.1-0.8) 10^3/uL 0.63 Absolute Eosinophils (0.0-0.7) 10^3/uL 0.01 Absolute Basophils (0.0-0.2) 10^3/uL 0.04 Sodium (136-145) mmol/L 132 L Potassium (3.5-5.1) mmol/L 4.4 Chloride (98-107) mmol/L 97 L Carbon Dioxide (21.0-32.0) mmol/L 29.9 Anion Gap (3-11) mmol/L 5.1 BUN (7-18) mg/dL 26 H Creatinine (0.70-1.30) mg/dL 1.0 Estimated GFR/1.73 m2 (mL/min/1.73m2) >= 60.00 Glucose (74-106) mg/dL 125 H Calcium (8.5-10.1) mg/dL 8.5 Magnesium (1.8-2.4) mg/dL 1.7 L Total Bilirubin (0.2-1.0) mg/dL 0.8 AST (15-37) U/L 33 ALT (16-63) U/L 44 Alkaline Phosphatase (46-116) U/L 50 Troponin I (<or=60) ng/L < 50 Total Protein (6.4-8.2) g/dL 6.0 L Albumin (3.4-5.0) g/dL 1.7 L TSH (0.36-3.74) uIU/mL 0.73 Urine Color (Yellow) Yellow Urine Clarity (Clear) Clear Urine pH (5-8) 7.0 Ur Specific [place] (1.005-1.025) 1.020 Urine Protein (Negative) mg/dL Trace H Urine Ketones (Negative) mg/dL Negative Urine Blood (Negative) Negative Urine Nitrite (Negative) Negative Urine Bilirubin (Negative) Negative Urine Urobilinogen (Up TO 0.2) EU/dL 1.0 H Ur Leukocyte Esterase (Negative) Negative Urine RBC (0-2) HPF 0-2 Urine WBC (0-5) HPF 0-2 Ur Epithelial Cells (Negative) HPF Rare Urine Crystals (Negative) HPF Negative Urine Bacteria (Negative) HPF Rare Urine Casts (Negative) LPF 0-2 Coarse Granular Urine Mucus (Negative) Trace Ur Culture Indicated? No Urine Glucose (Negative) mg/dL Negative Range/Units 01/15/22 14:54 WBC (4.4-10.8) 10^3/uL RBC (4.36-5.78) 10^6/uL Hgb (13.5-17.5) g/dL Hct (40.0-50.0) % MCV (80-95) fL MCH (27.0-33.0) pg MCHC (32.0-36.0) % RDW (11.8-14.1) % Plt Count (130-400) 10^3/uL MPV (8.0-11.0) fL Immature Gran % Neutrophils % Lymphocytes % Monocytes % Eosinophils % Basophils % Nucleated RBC % (0.0-0.3) % Absolute Neutrophils (1.2-6.7) 10^3/uL Absolute Lymphocytes (1.2-3.4) 10^3/uL Absolute Monocytes (0.1-0.8) 10^3/uL Absolute Eosinophils (0.0-0.7) 10^3/uL Absolute Basophils (0.0-0.2) 10^3/uL Sodium (136-145) mmol/L Potassium (3.5-5.1) mmol/L Chloride (98-107) mmol/L Carbon Dioxide (21.0-32.0) mmol/L Anion Gap (3-11) mmol/L BUN (7-18) mg/dL Creatinine (0.70-1.30) mg/dL Estimated GFR/1.73 m2 (mL/min/1.73m2) Glucose (74-106) mg/dL Calcium (8.5-10.1) mg/dL Magnesium (1.8-2.4) mg/dL Total Bilirubin (0.2-1.0) mg/dL AST (15-37) U/L ALT (16-63) U/L Alkaline Phosphatase (46-116) U/L Troponin I (<or=60) ng/L < 50 Total Protein (6.4-8.2) g/dL Albumin (3.4-5.0) g/dL TSH (0.36-3.74) uIU/mL Urine Color (Yellow) Urine Clarity (Clear) Urine pH (5-8) Ur Specific [place] (1.005-1.025) Urine Protein (Negative) mg/dL Urine Ketones (Negative) mg/dL Urine Blood (Negative) Urine Nitrite (Negative) Urine Bilirubin (Negative) Urine Urobilinogen (Up TO 0.2) EU/dL Ur Leukocyte Esterase (Negative) Urine RBC (0-2) HPF Urine WBC (0-5) HPF Ur Epithelial Cells (Negative) HPF Urine Crystals (Negative) HPF Urine Bacteria (Negative) HPF Urine Casts (Negative) LPF Urine Mucus (Negative) Ur Culture Indicated? Urine Glucose (Negative) mg/dL
[2022-01-15 15:36] VITALS: BP 107/66; PULSE 78; RESP 16; O2SAT 93
[2022-01-15 15:39] VITALS: BP 107/66; PULSE 78; RESP 16; TEMP 37; O2SAT 93
--- NOTE | 2022-01-15 16:05 | PDOC.ERCMPRO ---
- If Service Date Differs Date of service: 01/15/22 Time of Service: 16:05 Care Management Progress Note Jorge Luis presents in the ED via EMS seeking an inpatient admission at the suggestion of his PCP's office (Dr. Beto Velasquez, [facility]). Jorge Luis fell in December 2021, injuring his right knee. On December 18, 2021, he had a fixation of his right patella. He remained at [facility] on observation status overnight and was discharged home with Home Health RN and PT the following day. Today Jorge Luis and Archana, his daughter and DPOA, report that he is not eating and is losing weight, is unable to walk, is depressed, and needs rehab as he cannot care for himself at home. Archana states that Jorge Luis's sister and [id number] reside next door to him and help care for Jorge Luis but they are going away for 2 weeks. ALIA explains to Jorge Luis and Archana that Jorge Luis has Medicare for insurance, so he will require a 3-day qualifying stay in the hospital before his insurance will cover rehab. ALIA further explains that in order to have a qualifying stay, Jorge Luis must have a medical condition that requires inpatient treatment. Jorge Luis's ED work-up and physical therapy evaluation do not identify a medical condition requiring an inpatient stay. ALIA again meets with Jorge Luis and Archana to devise a plan to support Jorge Luis at home, as he does not meet criteria for an inpatient admission. We discuss adding OT to Jorge Luis's current Home Health services and making a referral to the [facility] for [id number] and for an evaluation of his in-home needs. ALIA telephones Home Health and learns that OT and [facility] services were ordered on January 11, 2022 but those services have yet to begin due to staff shortages. ALIA coordinates a referral to [facility] for [id number], volunteer services, and a comprehensive evaluation of Jorge Luis's needs. provides Archana with contact information for [facility] for assistance exploring Jorge Luis's eligibility for Medicaid. Archana is aware that if Jorge Luis qualifies for Medicaid, he would then have a payor source for 30 days of rehab. Jorge Luis will follow up with his PCP on Friday, January 18 as scheduled, and with Dr. Rose on January 28. Jorge Luis knows he can return to [facility] if his condition worsens.
== END 2022-01-15 15:42 | disposition home or self-care (01) ==
PROVIDERS: Emergency Provider Physician Assistant; PCP Internal Medicine
DX: R63.0 Anorexia (principal); R63.4 Abnormal weight loss; S82.001D Unspecified fracture of right patella, subsequent encounter for closed fracture with routine healing; I10 Essential (primary) hypertension; Z87.891 Personal history of nicotine dependence; X58.XXXD Exposure to other specified factors, subsequent encounter
CPT/HCPCS: 36415; 80053; 96360; 97162; 97530; 99284; 71045; 81003; 81015; 83735; 84443; 84484; 85025; 99282

== ENCOUNTER 2022-01-28 15:15 | Outpatient (CLI) | payer MEDICARE, OTHER, SELFPAY ==
--- NOTE | 2022-01-28 14:37 | DI.RAD_ITS ---
Exam(s) XR KNEE RT 2V AP,LAT EXAM: XR KNEE RT 2V AP,LAT CLINICAL HISTORY: follow up. TECHNIQUE: 2D digital imaging was performed. COMPARISON: CR XR KNEE RT 2V AP,LAT from 12/31/2021 FINDINGS: Two views Patellar hardware is again noted and healing patellar fracture site. Small step at the posterior art icular surface of the patella again noted. No prominent joint effusion. Chondrocalcinosis in the me diolateral compartments noted. IMPRESSION: DATA REPOSITORY: RADIATION DOSE DELIVERED:
== END 2022-01-28 15:16 | disposition home or self-care (01) ==
LOC: DIORS 15:16
PROVIDERS: PCP Internal Medicine; Referring Provider Internal Medicine; Visit Provider Physician Assistant Surgical
DX: S82.041D Displaced comminuted fracture of right patella, subsequent encounter for closed fracture with routine healing (principal); Z47.89 Encounter for other orthopedic aftercare; X58.XXXD Exposure to other specified factors, subsequent encounter
CPT/HCPCS: 73560

== ENCOUNTER 2022-02-15 18:50 | Outpatient (REF) | payer MEDICARE, OTHER, SELFPAY ==
[2022-02-15 19:19] LABS: HCT 35.6 % (40.0-50.0); HGB 11.1 g/dL (13.5-17.5); MCH 29.7 pg (27.0-33.0); MCHC 31.2 % (32.0-36.0); MCV 95 fL (80-95); MPV 9.6 fL (8.0-11.0); Platelet Count 327 10^3/uL (130-400); RBC 3.74 10^6/uL (4.36-5.78); RDW 14.8 % (11.8-14.1); RDW-SD 51.9 fL; WBC 8.94 10^3/uL (4.4-10.8)
[2022-02-15 19:43] LABS: ALT 27 U/L (16-63); AST 26 U/L (15-37); Albumin 2.3 g/dL (3.4-5.0); Alkaline Phosphatase 57 U/L (46-116); Anion Gap 7.6 mmol/L (3-11); BUN 14 mg/dL (7-18); Bilirubin, Total 0.5 mg/dL (0.2-1.0); CO2 30.4 mmol/L (21.0-32.0); CREATININE 0.7 mg/dL (0.70-1.30); Calcium 8.5 mg/dL (8.5-10.1); Chloride 99 mmol/L (98-107); Glucose 174 mg/dL (74-106); Potassium 4.2 mmol/L (3.5-5.1); Sodium 137 mmol/L (136-145); Total Protein 7.1 g/dL (6.4-8.2)
== END 2022-02-15 18:51 | disposition home or self-care (01) ==
LOC: NCHCN 18:50
PROVIDERS: PCP Internal Medicine; Visit Provider Family Medicine
DX: I10 Essential (primary) hypertension (principal)
CPT/HCPCS: 80053; 85027

== ENCOUNTER 2022-03-15 08:57 | Outpatient (CLI) | payer MEDICARE, OTHER, SELFPAY ==
--- NOTE | 2022-03-15 08:33 | DI.RAD_ITS ---
Exam(s) XR KNEE RT 3V AP,LAT,BRICE EXAM: XR KNEE RT 3V AP,LAT,BRICE CLINICAL HISTORY: S/P ORIF R PATELLA. TECHNIQUE: 2D digital imaging was performed. Images were obtained. AP, lateral and oblique views w ere obtained. COMPARISON: CR XR KNEE RT 2V AP,LAT from 12/31/2021 CR XR KNEE RT 2V AP,LAT from 01/28/2022 FINDINGS: BONES: There are stable post operative changes present. No new fracture or dislocation. The patellar fracture line is less well visualized. JOINTS: There is chondrocalcinosis again noted. No joint effusion is present. SOFT TISSUE: Atherosclerosis. IMPRESSION: Stable postoperative changes. DATA REPOSITORY: RADIATION DOSE DELIVERED:
== END 2022-03-15 08:58 | disposition home or self-care (01) ==
LOC: DIORS 08:57
PROVIDERS: PCP Internal Medicine; Referring Provider Internal Medicine; Visit Provider Student in an Organized Health Care Education/Training Program
DX: S82.041D Displaced comminuted fracture of right patella, subsequent encounter for closed fracture with routine healing (principal); Z47.89 Encounter for other orthopedic aftercare; X58.XXXD Exposure to other specified factors, subsequent encounter
CPT/HCPCS: 73562

== ENCOUNTER 2022-06-17 14:00 | Outpatient (REF) | payer MEDICARE, OTHER, SELFPAY ==
[2022-06-17 14:35] LABS: HCT 41.5 % (40.0-50.0); HGB 13.3 g/dL (13.5-17.5)
[2022-06-17 15:16] LABS: Vitamin B12 432 pg/mL (193-986)
[2022-06-17 15:18] LABS: Folate > 20.0 ng/mL (8.6-20.0)
== END 2022-06-17 14:01 | disposition home or self-care (01) ==
LOC: NCHCN 14:00
PROVIDERS: PCP Internal Medicine; Visit Provider Family Medicine
DX: R73.03 Prediabetes (principal); R41.3 Other amnesia; F32.89 Other specified depressive episodes
CPT/HCPCS: 82607; 82746; 85014; 85018

== ENCOUNTER 2022-07-10 03:21 | Outpatient (CLI) | payer MEDICARE, OTHER, SELFPAY ==
--- NOTE | 2022-07-10 15:25 | DI.CT_ITS ---
Exam(s) CT HEAD WO EXAM: CT HEAD WO CLINICAL HISTORY: MEMORY DEFICIT, R41.3,H/O CLOSED HEAD INJURY,Z87.820. TECHNIQUE: Imaging Protocol: Axial computed tomography images with coronal and sagittal reformatted images were created and reviewed COMPARISON: CT CT HEAD WO from 12/16/2021 FINDINGS: Ventricles and Extra axial spaces: Moderate atrophy. Stable ventricular size. Hemorrhage: None. 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 Old right parietal infarct. No evidence of acute infarct or mass. Midline shift: None. Brainstem/Cerebellum: Normal. Calvarium: Normal. Visualized Paranasal sinuses/Mastoids: Clear. Soft Tissues: Unremarkable. 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 No acute intracranial process. RADIATION DOSE DELIVERED: 716.25mGy.cm Total DLP DATA REPOSITORY: All CT scans at this facility are submitted to the National Radiology Data Registry (NRDR) Dose Index Registry (DIR) with the [employer] ([employer]). RADIATION OPTIMIZATION: All CT scans at this facility use at least one of these dose optimization te chniques: automated exposure control; mA and/or kV adjustment per patient size (includes targeted exa ms where dose is matched to clinical indication); or iterative reconstruction.
== END 2022-07-10 03:41 ==
LOC: DI 03:22
PROVIDERS: PCP Internal Medicine; Visit Provider Family Medicine
DX: R41.3 Other amnesia (principal); Z87.820 Personal history of traumatic brain injury; G31.89 Other specified degenerative diseases of nervous system; I63.89 Other cerebral infarction
CPT/HCPCS: 70450

== ENCOUNTER 2023-08-20 16:07 | Outpatient (REF) | payer MEDICARE, OTHER, SELFPAY ==
[2023-08-20 21:17] LABS: Abs Immature Grans 0.08 10^3/uL (0.0-0.06); Absolute Basophil Count 0.06 10^3/uL (0.0-0.2); Absolute Eosinophil Count 0.06 10^3/uL (0.0-0.7); Absolute Lymphocyte Count 2.63 10^3/uL (1.2-3.4); Absolute Monocyte Count 0.54 10^3/uL (0.1-0.8); Absolute Neutrophil Count 4.13 10^3/uL (1.2-6.7); Basophils % 0.8; Eosinophils % 0.8; HCT 35.8 % (40.0-50.0); HGB 12.2 g/dL (13.5-17.5); Immature Grans % 1.1; Lymphocytes % 35.1; MCH 31.1 pg (27.0-33.0); MCHC 34.1 % (32.0-36.0); MCV 91 fL (80-95); MPV 10.5 fL (8.0-11.0); Monocytes % 7.2; Platelet Count 306 10^3/uL (130-400); RBC 3.92 10^6/uL (4.36-5.78); RDW-SD 56.4 fL
[2023-08-20 21:22] LABS: Bilirubin Large (Negative); Blood Negative (Negative); Clarity Clear (Clear); Glucose 100 mg/dL (Negative); INR 1.2 (0.9-1.1); Ketones Trace mg/dL (Negative); Leukocyte Esterase Negative (Negative); Nitrite Negative (Negative); Prothrombin Time 12.1 sec (9.1-11.1); Specific Gravity 1.025 (1.005-1.025)
[2023-08-20 21:44] LABS: ALT 107 U/L (16-63); AST 100 U/L (15-37); Albumin 2.5 g/dL (3.4-5.0); Alkaline Phosphatase 331 U/L (46-116); Anion Gap 9.3 mmol/L (3-11); BUN 9 mg/dL (7-18); CO2 28.7 mmol/L (21.0-32.0); CREATININE 0.7 mg/dL (0.70-1.30); Calcium 8.7 mg/dL (8.5-10.1); Chloride 100 mmol/L (98-107); Estimated GFR 93.73 (mL/min/1.73m2); Glucose 102 mg/dL (74-106); LDH 116 U/L (85-227); Potassium 4.7 mmol/L (3.5-5.1); Sodium 138 mmol/L (136-145); Total Protein 7.1 g/dL (6.4-8.2)
[2023-08-20 21:54] LABS: Bilirubin, Total 16.1 mg/dL (0.2-1.0)
[2023-08-21 19:56] LABS: Hepatitis A Antibody IgM Negative (Negative); Hepatitis B Core Antibody Negative (Negative); Hepatitis B surface Ag Negative (Negative); Hepatitis C Ab w Rflx HCV PCR Negative (Negative)
== END 2023-08-20 16:08 | disposition home or self-care (01) ==
LOC: NCHCN 16:07
PROVIDERS: PCP Internal Medicine; Referring Provider Family Medicine; Visit Provider Family Medicine
DX: R17 Unspecified jaundice (principal)
CPT/HCPCS: 80053; 86704; 86709; 86803; 87340; 81003; 83615; 85025; 85610

== ENCOUNTER → 2023-09-01 03:02 | Outpatient (CLI) | payer MEDICARE, OTHER, SELFPAY ==
--- NOTE | 2023-09-01 | DI.CT_ITS ---
Exam(s) CT ABDOMEN PELVIS W EXAM: CT ABDOMEN PELVIS W CLINICAL HISTORY: JAUNDICE R17. TECHNIQUE: Imaging Protocol: Axial computed tomography images with coronal and sagittal reformatted images were created and reviewed CONTRAST MATERIAL: Intravenous: Omnipaque 350 Contrast volume:100 ml Oral: yes / COMPARISON: CR XR PORTABLE CHEST AP from 01/15/2022 FINDINGS: ABDOMEN and PELVIS: Lung Bases: No acute findings. Liver: Normal density. No measurable mass. Gallbladder and biliary tract: Multiple stones in the gallbladder. Several stones present in the com mon bile duct, includinga 2cm stone distally causing obstruction. There is moderate intrahepatic bili herrera dilatation. Pancreas: Normal density. No abnormal calcifications or inflammatory process. No evidence of mass.mi ld dilatation of the pancreatic duct. Spleen: Normal. Kidneys: Normal size, contour and axis. No radiodense stones. No obstructive uropathy. No suspicious masses seen. Adrenal glands: No masses seen. Vasculature: Abdominal aorta non-dilated. Soft tissues: Unremarkable. Bladder: No gross wall thickening. No calculi.No focal mass. Bowel:Several diverticula in the jejunum. No obstruction. No bowel wall thickening. Appendix normal . Peritoneal cavity: No ascites. No focal collection or mesenteric inflammatory response. Bones: Unremarkable for age. Reproductive organs: Mild enlargement of the prostate. Lymph nodes: Unremarkable. IMPRESSION:: Multiple gallstones. Stones in common bile duct causing moderate intrahepatic biliary d ilatation. RADIATION DOSE DELIVERED: 747.83mGy.cm Total DLP DATA REPOSITORY: All CT scans at this facility are submitted to the National Radiology Data Registry (NRDR) Dose Index Registry (DIR) with the [employer] (ACR). RADIATION OPTIMIZATION: All CT scans at this facility use at least one of these dose optimization te chniques: automated exposure control; mA and/or kV adjustment per patient size (includes targeted exa ms where dose is matched to clinical indication); or iterative reconstruction.
[2023-09-01] MEDS: Barium Sulfate 2% W/V-Berry Smoothie 450 ML BTL PO ×2 (06:56→06:57)
[2023-09-01] MEDS: Normal Saline - Diluent 50 ML VIAL IJ (09:09)
[2023-09-01] MEDS: Omnipaque 350 MG/ML 100 ML BTL IJ (09:10)
== END ==
PROVIDERS: PCP Internal Medicine; Visit Provider Family Medicine
DX: K80.20 Calculus of gallbladder without cholecystitis without obstruction (principal)
CPT/HCPCS: 74177; J3490

== ENCOUNTER 2024-10-21 21:59 | Outpatient (REF) | payer MEDICARE, OTHER, SELFPAY ==
[2024-10-21 21:34] LABS: Abs Immature Grans 0.01 10^3/uL (0.0-0.06); Absolute Basophil Count 0.08 10^3/uL (0.0-0.2); Absolute Eosinophil Count 0.14 10^3/uL (0.0-0.7); Absolute Lymphocyte Count 3.28 10^3/uL (1.2-3.4); Absolute Monocyte Count 0.47 10^3/uL (0.1-0.8); Absolute Neutrophil Count 2.51 10^3/uL (1.2-6.7); Basophils % 1.2 %; Eosinophils % 2.2 %; HCT 43.4 % (40.0-50.0); HGB 14.3 g/dL (13.5-17.5); Immature Grans % 0.2 %; Lymphocytes % 50.5 %; MCH 29.9 pg (27.0-33.0); MCHC 32.9 % (32.0-36.0); MCV 91 fL (80-95); MPV 10.2 fL (8.0-11.0); Monocytes % 7.2 %; Neutrophils % 38.7 %; Platelet Count 142 10^3/uL (130-400); RBC 4.78 10^6/uL (4.36-5.78); RDW 12.6 % (11.8-14.1); RDW-SD 41.9 fL; WBC 6.49 10^3/uL (4.4-10.8)
[2024-10-21 21:57] LABS: ALT 20 U/L (16-63); AST 20 U/L (15-37); Albumin 3.7 g/dL (3.4-5.0); Alkaline Phosphatase 71 U/L (46-116); Anion Gap 7.3 mmol/L (3-11); BUN 18 mg/dL (7-18); Bilirubin, Total 0.5 mg/dL (0.2-1.0); CO2 28.7 mmol/L (21.0-32.0); CREATININE 1.1 mg/dL (0.70-1.30); Chloride 104 mmol/L (98-107); Estimated GFR 67.86 (mL/min/1.73m2); Glucose 110 mg/dL (74-106); Potassium 4.1 mmol/L (3.5-5.1); Sodium 140 mmol/L (136-145); Total Protein 6.8 g/dL (6.4-8.2)
== END 2024-10-21 22:00 | disposition home or self-care (01) ==
LOC: NCHCN 21:59
PROVIDERS: PCP Family Medicine; Visit Provider Family Medicine
DX: I10 Essential (primary) hypertension (principal)
CPT/HCPCS: 80053; 85025

== ENCOUNTER 2025-06-13 12:38 | Observation (INO) | payer MEDICARE, SELFPAY ==
[2025-06-13 12:36] VITALS: BP 142/77; PULSE 92; TEMP 36.7; O2SAT 95
[2025-06-13 13:58] LABS: Abs Immature Grans 0.16 10^3/uL (0.0-0.06); HCT 45.1 % (40.0-50.0); HGB 15.0 g/dL (13.5-17.5); Immature Grans % 1.2 %; MCH 29.9 pg (27.0-33.0); MCHC 33.3 % (32.0-36.0); MCV 90 fL (80-95); MPV 9.5 fL (8.0-11.0); Platelet Count 194 10^3/uL (130-400); RBC 5.02 10^6/uL (4.36-5.78); RDW 12.9 % (11.8-14.1); RDW-SD 42.3 fL; WBC 13.88 10^3/uL (4.4-10.8)
[2025-06-13 14:14] LABS: Lipase 28 U/L (<53)
[2025-06-13 14:16] LABS: ALT 9 U/L (10-49); AST 19 U/L (<34); Albumin 4.0 g/dL (3.2-5.0); Alkaline Phosphatase 53 U/L (46-116); Anion Gap 7.9 mmol/L (3-11); BUN 12 mg/dL (9-23); Bilirubin, Total 0.60 mg/dL (0.2-1.2); CO2 29.1 mmol/L (20.0-31.0); Calcium 9.1 mg/dL (8.3-10.6); Chloride 103 mmol/L (98-107); Glucose 180 mg/dL (74-106); Potassium 4.6 mmol/L (3.5-5.1); Sodium 140 mmol/L (136-145); Total Protein 7.3 g/dL (5.7-8.2)
--- NOTE | 2025-06-13 14:27 | ED.GENADUL_ITS ---
Discharge Plan Disposition Patient Disposition: Admit to [facility] Discharge Details Clinical Impression: Small bowel obstruction, Nausea & vomiting Admit Date/Time: 06/13/25 15:47 Admit Provider: Da Strickland Attending Provider: Da Strickland Primary Care Provider: Beto Velasquez ED Provider: Dell Izaguirre Discharge Data Discharge Date/Time-TO BE ENTERED AT DEPARTURE: 06/13/25 17:14 HPI General Date/Time Provider Initiated Documentation: 06/13/25 13:10 . HPI Narrative: MDM This is an uncomfortable tender normothermic and not tachycardic 79-year-old male with abdominal pain concerning for intra-abdominal infection. Given past abdominal surgery SBO is in the differential. Patient does have right upper quadrant tenderness concerning for the possibility of acute cholecystitis. Patient has remote prior appendectomy so I am not suspicious for appendicitis. No pain out of proportion to suggest necrotizing soft tissue infection. No dysuria or frequency to suggest UTI. No testicular pain or history of diabetes to suggest Satya's gangrene. No lateralizing flank pain to suggest ureteral lithiasis. No rash to abdomen to suggest zoster. No chest pain to suggest ACS so I did not obtain ECG. No cough to suggest referred pain from pneumonia. No black or bloody stools to suggest anemia. 3:27 PM I reassessed the patient. He had improved abdominal pain and less tenderness. His CT scan was read as consistent with small bowel obstruction with a transition point in his lobe pelvis. Given his vomiting and nausea we will plan on observing the patient overnight in the hospital. I was in touch with Dr. Emerson. He advised medical hospitalization and noted that surgical team would follow-up for management. Patient was agreeable to hospitalization. 5:30 PM No symptoms with Dr. Strickland who graciously agreed to accept patient for hospitalization. HPI The patient presents for evaluation of nausea and vomiting. He reports experiencing nausea this morning, which was followed by an episode of vomiting. He also mentions a mild stomach discomfort that began yesterday. He has not noticed any blood in his vomit. He is not experiencing any fevers, chest pain, or difficulty breathing. He is not experiencing any dysuria. His daily medication regimen includes 3 pills. His medical history includes an appendectomy and the removal of stones from his throat. Exam General: Well-appearing in no acute distress speaking in complete sentences. Head: Normocephalic, atraumatic. Eye: Extraocular eye movements intact. No conjunctival injection. No scleral icterus. Ear, nose, mouth, throat: Grossly normal inspection. Normal voice, handling secretions normally. Neck: Trachea midline. Cardiovascular: Well-perfused distal extremities. Regular rate and rhythm Respiratory: Nonlabored respiration. Clear lungs bilaterally. Gastrointestinal: Nondistended abdomen. Soft. Diffuse abdominal tenderness. No rebound. No guarding. Musculoskeletal: No edema. Moving all 4 extremities spontaneously. Skin: Normal for age and race, grossly normal temperature and turgor. No acute rash. Neurologic: Alert and appropriate, no apparent acute deficits. Related Data Home Medications ?Medication ?Instructions ?Recorded ?Confirmed atorvastatin 20 mg tablet 40 mg PO DAILY 05/03/2002/28 multivitamin 1 cap PO DAILY 12/16/2102/28 acetaminophen 500 mg tablet 500 mg PO Q6H PRN pain #60 tabs 12/18/21 06/13/25 ibuprofen 600 mg tablet 600 mg PO TID PRN pain #60 t abs 12/18/21 06/13/25 aspirin 81 mg tablet,delayed 81 mg PO DAILY 03/15/22 1 08/14/24 release (Adult Aspirin Regimen) fluoxetine 10 mg capsule 10 mg PO DAILY 06/13/2502/28 Previous Rx's ?Medication ?Instructions ?Recorded acetaminophen 500 mg tablet 500 mg PO Q6H PRN pain #60 tabs 12/18/21 ibuprofen 600 mg tablet 600 mg PO TID PRN pain #60 t abs 12/18/21 Allergies Allergy/AdvReac Type Severity Reaction Status Date / Time No Known Allergies Allergy Verified 06/13/25 12:41 General Stated Complaint: Nausea/Vomit/Diar TO: 3 Course Vital Signs Vital signs: Vital Signs Temperature 36.7 C 06/13/25 12:36 Pulse 92 H 06/13/25 12:36 Blood Pressure 142/77 H 06/13/25 12:36 Pulse Oximetry 95 06/13/25 12:36 Temperature 36.7 C 06/13/25 12:36 Pulse 92 H 06/13/25 12:36 Blood Pressure 142/77 H 06/13/25 12:36 Pulse Oximetry 95 06/13/25 12:36 Lab/Test Results Lab/Test Results: Laboratory Tests Range/Units 06/13/25 13:51 WBC (4.4-10.8) 10^3/uL 13.88 H RBC (4.36-5.78) 10^6/uL 5.02 Hgb (13.5-17.5) g/dL 15.0 Hct (40.0-50.0) % 45.1 MCV (80-95) fL 90 MCH (27.0-33.0) pg 29.9 MCHC (32.0-36.0) % 33.3 RDW (11.8-14.1) % 12.9 Plt Count (130-400) 10^3/uL 194 MPV (8.0-11.0) fL 9.5 Immature Gran % % 1.2 Neutrophils % % 89.4 Lymphocytes % % 3.5 Monocytes % % 5.5 Eosinophils % % 0.0 Basophils % % 0.4 Nucleated RBC % (0.0-0.3) % 0.0 Absolute Neutrophils (1.2-6.7) 10^3/uL 12.41 H Absolute Lymphocytes (1.2-3.4) 10^3/uL 0.49 L Absolute Monocytes (0.1-0.8) 10^3/uL 0.76 Absolute Eosinophils (0.0-0.7) 10^3/uL 0.00 Absolute Basophils (0.0-0.2) 10^3/uL 0.06 Sodium (136-145) mmol/L 140 Potassium (3.5-5.1) mmol/L 4.6 Chloride (98-107) mmol/L 103 Carbon Dioxide (20.0-31.0) mmol/L 29.1 Anion Gap (3-11) mmol/L 7.9 BUN (9-23) mg/dL 12 Creatinine (0.73-1.18) mg/dL 0.95 Est GFR (CKD-EPI 2020) (mL/min/1.73m2) 75.97 Glucose (74-106) mg/dL 180 H Calcium (8.3-10.6) mg/dL 9.1 Total Bilirubin (0.2-1.2) mg/dL 0.60 AST (<34) U/L 19 ALT (10-49) U/L 9 L Alkaline Phosphatase (46-116) U/L 53 Total Protein (5.7-8.2) g/dL 7.3 Albumin (3.2-5.0) g/dL 4.0 Lipase (<53) U/L 28 PFSH All Active Problems (Updated 06/13/25 @ 17:24 by Sheela Brar APRN) Elevated lactic acid level (Acute) Leukocytosis (leucocytosis) (Acute) Nausea & vomiting (Acute) Small bowel obstruction (Acute) Comminuted fracture of right patella (Acute 12/16/21) s/p ORIF of right patella DOS: 12/18/21 Encounter for colonoscopy due to history of adenomatous colonic polyps (Acute) Medical History Adenomatous colon polyp Hyperlipidemia Hypertension Surgical History Appendectomy Colonoscopy - MAC (07/29/16) S/P balloon mitral valvuloplasty 2013 @ [facility] F/U with PCP anually Sigmoidoscopy (04/22/16) MAC, Attempted colonoscopy Social History Smoking/Tobacco Use Status: Former Tobacco Use Quit Date: 07/07/99 Smoking risk assessment performed?: Yes Alcohol Intake: current Alcohol Intake frequency: 0-2 drinks per day Alcohol type: beer and hard liquor Drug use: Never Substance use type: does not use Household members: spouse current occupation: retired Current gender identity: male Do you feel safe at home: No (Does not feel safe living alone given current conditions) Additional Social history: lives alone
[2025-06-13] MEDS: Omnipaque 350 MG/ML 100 ML BTL IJ (14:52)
[2025-06-13] MEDS: Normal Saline Flush 10 ML SYR IVP (14:53)
[2025-06-13] MEDS: Normal Saline - Diluent 50 ML VIAL IJ (14:53)
--- NOTE | 2025-06-13 15:05 | DI.CT_ITS ---
Exam(s) CT ABDOMEN PELVIS W EXAM: CT ABDOMEN PELVIS W CLINICAL HISTORY: abdominal pain. TECHNIQUE: Imaging Protocol: Axial computed tomography images with coronal and sagittal reformatted images were created and reviewed CONTRAST MATERIAL: Intravenous: Omnipaque 350 Contrast volume:75 ml Oral: yes COMPARISON: CT CT ABDOMEN PELVIS W from 09/01/2023 FINDINGS: ABDOMEN and PELVIS: Lung Bases: No acute findings. Scarring at right lung base Liver: Normal density. No suspicious mass. Gallbladder and biliary tract: Cholecystectomy. The common bile duct is mildly dilated. 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 Pancreas: Normal density. No abnormal calcifications or inflammatory process. No evidence of mass. Spleen: Normal. Kidneys: Normal size, contour and axis. No radiodense stones. No obstructive uropathy. No suspicious masses seen. Adrenal glands: No masses seen. Vasculature: Abdominal aorta non-dilated. Soft tissues: Unremarkable. Bladder: No gross wall thickening. No calculi.No focal mass. Bowel: There are dilated fluid-filled loops of small bowel, extending down to the level of the pelvis where there is a transition point. The distal small bowel is normal in caliber. There is no pneumatosis or significant wall thickening. The previous exam showed several jejunal diverticula which are less well delineated on the current exam. Colonic diverticulosis. No evidence of diverticulitis. Small amount of fecal material. Peritoneal cavity: No ascites. No focal collection. No mesenteric inflammatory response. No free air. Bones: Unremarkable for age. Reproductive organs: The prostate is slightly enlarged. Lymph nodes: No pathologically enlarged lymph nodes. IMPRESSION:: Findings consistent with small-bowel obstruction with transition point in the midline of the low pelvis. Biliary air likely postsurgical. Findings called to ER provider. RADIATION DOSE DELIVERED: 317.12mGy.cm Total DLP DATA REPOSITORY: All CT scans at this facility are submitted to the National Radiology Data Registry (NRDR) Dose Index Registry (DIR) with the [employer] (ACR). RADIATION OPTIMIZATION: All CT scans at this facility use at least one of these dose optimization techniques: automated exposure control; mA and/or kV adjustment per patient size (includes targeted exams where dose is matched to clinical indication); or iterative reconstruction.
--- NOTE | 2025-06-13 15:28 | W.SURGCON ---
Date of service: 06/13/25 Time of Service: 15:39 Assessment and Plan Assessment and plan (1) Nausea & vomiting: Status: Acute Assessment and plan: 79-year-old man with some abdominal pain associated with vomiting of unknown etiology or significance. He is hemodynamically stable. Clinically he is unremarkable. He has no subjective pain at the time of my consultation. His abdominal exam is benign and is without distention or any tenderness on exam. Not sure if this is an acute GI illness or a resolving SBO . . . but doesn't seem to be bothering him much any more, if at all. His labwork is unremarkable. He is not dehydrated. I have reviewed his CT scan and careful detail. There it is some intestine that is dilated that seems to slowly transition to decompressed ileum. However, there is air and stool in his colon and rectum. Further, his stomach and foregut has no distention or significant fluid whatsoever and it has been many hours since he last vomited. I specifically looked for swirling of his mesenteric vessels and do not appreciate any. His major mesenteric vessels also appear patent with contrast opacifying them adequately. Nothing about this looks like a closed-loop obstruction such as an internal hernia and he certainly does not have risk factors for such. There is no free air, there is no free fluid anywhere. The bowel wall is neither thickened nor is there pneumatosis anywhere to cause concern. The distention of the mid-small bowel is not profound. In the absence(now) of any ongoing abdominal pain or nausea or vomiting, and considering his benign abdominal exam, my opinion is that it is reasonable to give him clear liquids and if he tolerates then he can be discharged home. He can certainly come back to the hospital if his symptoms return. If he needs to be admitted for observation, he can be admitted to the hospitalist service: # I do NOT recommend an NG tube at that time because there is no clinical evidence to suggest a bowel obstruction. His abdominal exam is not distended. The only suggestion of obstruction is the radiographic findings in the mid-small bowel. His stomach and foregut are not fluid-filled or distended. # Reasonable to give him clear liquids as tolerated. # Surgery signing off at this time. If symptoms return, please re-consult us as needed. History of Present Illness Narrative: Jorge Luis is an 79-year-old man who provides his own history. He admits he cannot remember a lot of stuff. He has had an appendectomy and cholecystectomy. He also says I have a lot of stones taken out of me down to [facility]. Unclear what stones those are/were, but presumably CBD stones(explains biliary air). He says he came into the hospital this time because his abdomen was hurting. At the bedside at time of consult he says it is no longer hurting. He can't remember when it started hurting, but thinks AFTER the vomiting this morning. He thinks the pain was constant, but doesn't remember. He says he had a normal bowel movement this morning. He did not eat any dinner last night but he is not sure exactly why. He vomited 3-4 times this morning but has not vomited since. That was before coming to the hospital. He has not vomited here in the hospital. He denies feeling like he is going to vomit. Surgery is consulted for CT scan findings showing the possibility of a bowel obstruction with transition point. I asked him if he thinks whatever is/was wrong has gone away . . . he answers: I think so. PFSH All Active Problems (Updated 06/13/25 @ 15:54 by Sheela Brar APRN) Leukocytosis (leucocytosis) (Acute) Nausea & vomiting (Acute) Small bowel obstruction (Acute) Comminuted fracture of right patella (Acute 12/16/21) s/p ORIF of right patella DOS: 12/18/21 Encounter for colonoscopy due to history of adenomatous colonic polyps (Acute) Medical History Adenomatous colon polyp Hyperlipidemia Hypertension Surgical History Appendectomy Colonoscopy - MAC (07/29/16) S/P balloon mitral valvuloplasty 2013 @ [facility] F/U with PCP anually Sigmoidoscopy (04/22/16) MAC, Attempted colonoscopy Social History Smoking/Tobacco Use Status: Former Tobacco Use Quit Date: 07/07/99 Smoking risk assessment performed?: Yes Alcohol Intake: current Alcohol Intake frequency: 0-2 drinks per day Alcohol type: beer and hard liquor Drug use: Never Substance use type: does not use Household members: spouse current occupation: retired Current gender identity: male Do you feel safe at home: No (Does not feel safe living alone given current conditions) Additional Social history: lives alone Exam Narrative Exam Narrative: Gen: Non-toxic, comfortable and interactive. Appears well?nourished and spry. Certainly in no extremis. Neuro: Alert and oriented x3 Psych: Good mood and affect. Reasonable insight and understanding into condition. Chest: Non-labored breathing, no wheezing, no visible shortness of breath. Heart: Regular Abdomen: Soft, no distention and no tenderness. He has some well-healed port sites, no midline surgical scars of significance. Results Last Vital Signs Temp 98.0 F 06/13/25 12:36 Pulse 92 H 06/13/25 12:36 BP 142/77 H 06/13/25 12:36 Pulse Ox 95 06/13/25 12:36 Labs 06/13/25 13:51 06/13/25 13:51 Labs: Laboratory Results - last 24 hr 06/13/25 13:51 WBC 13.88 H RBC 5.02 Hgb 15.0 Hct 45.1 MCV 90 MCH 29.9 MCHC 33.3 RDW 12.9 Plt Count 194 MPV 9.5 Immature Gran % 1.2 Neutrophils % 89.4 Lymphocytes % 3.5 Monocytes % 5.5 Eosinophils % 0.0 Basophils % 0.4 Nucleated RBC % 0.0 Absolute Neutrophils 12.41 H Absolute Lymphocytes 0.49 L Absolute Monocytes 0.76 Absolute Eosinophils 0.00 Absolute Basophils 0.06 Sodium 140 Potassium 4.6 Chloride 103 Carbon Dioxide 29.1 Anion Gap 7.9 BUN 12 Creatinine 0.95 Est GFR (CKD-EPI 2020) 75.97 Glucose 180 H Calcium 9.1 Total Bilirubin 0.60 AST 19 ALT 9 L Alkaline Phosphatase 53 Total Protein 7.3 Albumin 4.0 Lipase 28
--- NOTE | 2025-06-13 15:34 | W.PM.HP.N ---
Date of service: 06/13/25 Time of Service: 14:45 Assessment and Plan Assessment and plan (1) Sepsis: Status: Acute Assessment and plan: Tachycardia HR 91-98 , WBC 13 source most likely GI: most likely viral gastroenteritis lactate at 2.6 and as per point 3, 5 CBC , BMP in AM (2) Small bowel obstruction: Status: Acute Assessment and plan: As per CT of ABD and pelvis report and HPI Surgery consult NPO except Rx Slow IVF (3) Elevated lactic acid level: Status: Acute Assessment and plan: lactate 2.6 - might be d/t dehydration VS infection - no bowel ischemia on CT of the abdomen and pelvis As above procalcitonin pending repeat lactate in AM (4) Abdominal pain: Status: Acute Assessment and plan: epi and hypogastric region- no rebound tenderness - started s/p vomiting - might be from retching in the setting of gastroenteritis VS SBO PRN acetaminophen IV (5) Leukocytosis (leucocytosis): Status: Acute Assessment and plan: WBC 13 with ANC 12, no fever or diarrhea Most likely reactive but in the setting of hyperlactemia consideration given to DDx of gastroentertis (6) Nausea & vomiting: Status: Acute Assessment and plan: On PRN antiemetic PPI (7) Hyperlipidemia: Assessment and plan: On home med regimen (8) Hypertension: Assessment and plan: on home med regimen Discussed with Dr. Strickland Discharge Planning Discharge Plannin-48 hours History of Present Illness History of Present Illness Chief Complaint: ABD pain nausea vomiting Narrative: 79-year-old male with a PMHx of remote appendectomy, [place] [facility] [place] that [place] might have had cholithiasis presented today to the ED for evaluation of RUQ abd pain after 2 epoisodes of emesis this AM. Blood work showed WBC at 13.88, ANC 12.[address] of the abdomen and pelvis with findings consistent with small-bowel obstruction with transition point in the midline of the low pelvis. Full code status confirmed. Denies history of CHF, but cannot recall PCP's name or exact date/day but knows it is 06/2025. The patient denies: Fever, chills , dizziness, chest pain, hematemesis, blosting, dysuria , diarrhea hematochezia , flatus, eating out at restaurant and living partner having similar GI symptoms The patient reports : Vomiting X2 this AM with subsequent ongoing abdominal pain w/o other symptoms, last BM on 06/12, Review of Systems All systems reviewed & are unremarkable except as noted in HPI and below PFSH All Active Problems (Updated 06/13/25 @ 17:46 by Sheela Brar APRN) Sepsis (Acute) Abdominal pain (Acute) Elevated lactic acid level (Acute) Leukocytosis (leucocytosis) (Acute) Nausea & vomiting (Acute) Small bowel obstruction (Acute) Comminuted fracture of right patella (Acute 12/16/21) s/p ORIF of right patella DOS: 12/18/21 Encounter for colonoscopy due to history of adenomatous colonic polyps (Acute) Medical History Adenomatous colon polyp Hyperlipidemia Hypertension Surgical History Appendectomy Colonoscopy - MAC (07/29/16) S/P balloon mitral valvuloplasty 2013 @ [facility] F/U with PCP anually Sigmoidoscopy (04/22/16) MAC, Attempted colonoscopy Social History Smoking/Tobacco Use Status: Former Tobacco Use Quit Date: 07/07/99 Smoking risk assessment performed?: Yes Alcohol Intake: current Alcohol Intake frequency: 0-2 drinks per day Alcohol type: beer and hard liquor Drug use: Never Substance use type: does not use Household members: spouse current occupation: retired Current gender identity: male Do you feel safe at home: No (Does not feel safe living alone given current conditions) Additional Social history: lives alone Meds Allergies and Home Medications Allergies Allergy/AdvReac Type Severity Reaction Status Date / Time No Known Allergies Allergy Verified 06/13/25 12:41 Home Medications ?Medication ?Instructions ?Recorded ?Confirmed ?Type atorvastatin 20 mg tablet 40 mg PO DAILY 05/03/20 06/13/25 History multivitamin 1 cap PO DAILY 12/16/21 06/13/25 History acetaminophen 500 mg tablet 500 mg PO Q6H PRN pain #60 tabs 12/18/21 06/13/25 Rx ibuprofen 600 mg tablet 600 mg PO TID PRN pain #60 tabs 12/18/21 06/13/25 Rx aspirin 81 mg tablet,delayed 81 mg PO DAILY 03/15/22 06/13/25 History release (Adult Aspirin Regimen) fluoxetine 10 mg capsule 10 mg PO DAILY 06/13/25 06/13/25 History Exam Narrative Exam Narrative: No acute distress, non-icteric sclera, dry oral mucous membranes, A& O X2, w/o exact date but month/year , memory impairment, no focal neuro-deficits, clear lungs unlabored breathing, S1 S2 regular, ABD distended, soft mild epigastric tenderness- negative Dsouza's , no CVA tenderness Results Labs 06/13/25 13:51 06/13/25 13:51 Labs: Laboratory Results - last 24 hr 06/13/25 13:51 WBC 13.88 H RBC 5.02 Hgb 15.0 Hct 45.1 MCV 90 MCH 29.9 MCHC 33.3 RDW 12.9 Plt Count 194 MPV 9.5 Immature Gran % 1.2 Neutrophils % 89.4 Lymphocytes % 3.5 Monocytes % 5.5 Eosinophils % 0.0 Basophils % 0.4 Nucleated RBC % 0.0 Absolute Neutrophils 12.41 H Absolute Lymphocytes 0.49 L Absolute Monocytes 0.76 Absolute Eosinophils 0.00 Absolute Basophils 0.06 Sodium 140 Potassium 4.6 Chloride 103 Carbon Dioxide 29.1 Anion Gap 7.9 BUN 12 Creatinine 0.95 Est GFR (CKD-EPI 2020) 75.97 Glucose 180 H Calcium 9.1 Total Bilirubin 0.60 AST 19 ALT 9 L Alkaline Phosphatase 53 Total Protein 7.3 Albumin 4.0 Lipase 28 Last Vital Signs Temp 36.7 C 06/13/25 12:36 Pulse 92 H 06/13/25 12:36 BP 142/77 H 06/13/25 12:36 Pulse Ox 95 06/13/25 12:36 VTE Prohylaxis Risk Level: Moderate/High Risk Contraindications: None Prophylaxis: Pharmacologic Time Spent Time spent with Patient: >75 minutes Time was spent: preparing to see the patient(eg.review tests), obtaining and/or reviewing separately otained hiistory, ordering medications,tests, procedures, referring, communicating with other health care giver, indepentently interpreting results, counseling the patient, care coordination and other
--- NOTE | 2025-06-13 16:55 | W.PC.ACHO ---
Registration Status: REG ER Primary Language: Preferred Language: Georgian ED Information & Data Chief Complaint Nausea/Vomit/Diar 06/13/25 16:43 Chief Complaint Nausea/Vomit/Diar 06/13/25 14:30 Triage Note patient presented to the ER 06/13/25 12:36 stating his stomach is hurting and vomited x 5 patient was brought in to the ER via EMS. Patient zofran 4mg via ems and 500mls of NS progressing Medical / Surgical History (Last Reviewed 12/19/21 @ 09:01 by London Rose MD) Adenomatous colon polyp Hyperlipidemia Hypertension (Last Reviewed 12/19/21 @ 09:01 by London Rose MD) S/P balloon mitral valvuloplasty Sigmoidoscopy (04/22/16) Colonoscopy - MAC (07/29/16) Appendectomy Most Recent Vital Signs Temperature 36.7 C 06/13/25 12:36 Pulse 92 H 06/13/25 12:36 Blood Pressure 142/77 H 06/13/25 12:36 Pulse Oximetry 95 06/13/25 12:36 Allergies No Known Allergies Allergy (Verified 06/13/25 12:41) Precautions Isolation Standard precaution 06/13/25 16:43 Active Medications Generic Name Dose Route Start Last Admin Trade Name Freq PRN Reason Stop Dose Admin Iohexol 100 ml 06/13/25 14:45 06/13/25 14:52 Omnipaque 350 Mg/Ml 100 Ml Btl IJ 07/13/25 23:59 75 ml DIRECTED MEHNAZ Administration Sodium Chloride 0 ml 06/13/25 14:44 06/13/25 14:53 Normal Saline Flush 10 Ml Syr IVP 10 ml PRN PRN Administration Sodium Chloride 50 ml 06/13/25 14:45 06/13/25 14:53 Normal Saline - Diluent 50 Ml Vial IJ 50 ml DIRECTED MEHNAZ Administration Diet Orders Category Date Time Status npo [Nothing Per Oral] [DIET] Nutrition 06/13/25 15:47 Active Diagnostics 06/13/25 06/13/25 06/13/25 Range/Units Unknown 15:53 13:51 WBC 13.88 H (4.4-10.8) 10^3/uL RBC 5.02 (4.36-5.78) 10^6/uL Hgb 15.0 (13.5-17.5) g/dL Hct 45.1 (40.0-50.0) % MCV 90 (80-95) fL MCH 29.9 (27.0-33.0) pg MCHC 33.3 (32.0-36.0) % RDW 12.9 (11.8-14.1) % Plt Count 194 (130-400) 10^3/uL MPV 9.5 (8.0-11.0) fL Immature Gran % 1.2 % Neutrophils % 89.4 % Lymphocytes % 3.5 % Monocytes % 5.5 % Eosinophils % 0.0 % Basophils % 0.4 % Nucleated RBC % 0.0 (0.0-0.3) % Absolute Neutrophils 12.41 H (1.2-6.7) 10^3/uL Absolute Lymphocytes 0.49 L (1.2-3.4) 10^3/uL Absolute Monocytes 0.76 (0.1-0.8) 10^3/uL Absolute Eosinophils 0.00 (0.0-0.7) 10^3/uL Absolute Basophils 0.06 (0.0-0.2) 10^3/uL VBG Lactate Pending Sodium 140 (136-145) mmol/L Potassium 4.6 (3.5-5.1) mmol/L Chloride 103 (98-107) mmol/L Carbon Dioxide 29.1 (20.0-31.0) mmol/L Anion Gap 7.9 (3-11) mmol/L BUN 12 (9-23) mg/dL Creatinine 0.95 (0.73-1.18) mg/dL Est GFR (CKD-EPI 2020) 75.97 (mL/min/1.73m2) Glucose 180 H (74-106) mg/dL Calcium 9.1 (8.3-10.6) mg/dL Total Bilirubin 0.60 (0.2-1.2) mg/dL AST 19 (<34) U/L ALT 9 L (10-49) U/L Alkaline Phosphatase 53 (46-116) U/L Total Protein 7.3 (5.7-8.2) g/dL Albumin 4.0 (3.2-5.0) g/dL Lipase 28 (<53) U/L Add-On Test Request Pending Intake and Output - 24 Hour Total 06/13/25 12:34 thru 06/13/25 12:36 Weight 68.039 kg Falls Risk Assessment History of Falls Previous History 06/13/25 16:43 Contributing Factors Impairments 06/13/25 16:43 Ambulatory Aids Independent 06/13/25 16:43 Tubes/Lines None 06/13/25 16:43 Gait Evaluation No gait disturbance 06/13/25 16:43 Fall Total Score 18 06/13/25 16:43 Level of Risk Standard/Low Risk 06/13/25 16:43 Problems (Last Reviewed 12/19/21 @ 09:01 by London Rose MD) Leukocytosis (leucocytosis) (Acute) Nausea & vomiting (Acute) Small bowel obstruction (Acute) Encounter for colonoscopy due to history of adenomatous colonic polyps (Acute) Attestation Statement: By documenting the first initial, last name, and credentials of the reporting nurse below, both parties acknowledge that all relevant information regarding the patient handoff has been communicated, and that all questions have been addressed to ensure continuity and safety of care. Additional Patient Information/Comments: Report Received From: Garima MANAGER OF [employer]O at [id number]
[2025-06-13 17:02] VITALS: BP 181/94; PULSE 91; O2SAT 95
[2025-06-13 17:18] VITALS: BP 145/89; PULSE 98; RESP 20; TEMP 36.6; O2SAT 96
[2025-06-13] MEDS: Prochlorperazine 10 MG/2 ML VIAL 5 MG IVP (17:31)
[2025-06-13] MEDS: Lactated Ringers 1,000 ML 50 ML IV (17:33)
[2025-06-13 17:50] VITALS: BP 145/89; PULSE 98; RESP 20; TEMP 36.6; O2SAT 96
[2025-06-13] MEDS: ACETAMINOPHEN 1,000 MG/100 ML BAG 400 MG IVPB (18:26)
[2025-06-13] MEDS: Enoxaparin 40 MG/0.4 ML SYR SC (18:31)
[2025-06-13] MEDS: Pantoprazole 40 MG VIAL IVP (18:32)
[2025-06-13 18:45] LABS: Lab Add On Test DONE
[2025-06-13 19:12] VITALS: BP 117/85; PULSE 84; RESP 16; TEMP 37.1; O2SAT 96
[2025-06-13 19:28] LABS: Procalcitonin 1.34 ng/mL
[2025-06-14] MEDS: Lactated Ringers 1,000 ML 50 ML IV (03:55)
[2025-06-14 07:16] VITALS: BP 151/85; PULSE 85; RESP 18; TEMP 36.3; O2SAT 96
[2025-06-14] MEDS: Aspirin E.C. 81 MG TABEC PO (08:26)
[2025-06-14] MEDS: Normal Saline Flush 10 ML SYR IVP (08:26)
[2025-06-14] MEDS: FLUoxetine 10 MG TAB PO (08:26)
[2025-06-14] MEDS: Pantoprazole 40 MG VIAL IVP (08:26)
[2025-06-14] MEDS: Atorvastatin 20 MG TAB 40 MG PO (08:26)
--- NOTE | 2025-06-14 08:36 | PDOC.CMIN ---
Date of service: 06/14/25 Time of Service: 08:36 Care Management Initial Assmt Initial Assessment Reason for Hospitalization: SBO Functional Status/Living Situation Patient Presentation: Jorge Luis was sitting up in a chair when CM met with him. He was pleasant in interaction and easily engaged with CM. Jorge Luis lives in a single family home in [place] [facility] [place] with his friend Richelle Johnston. He explained that she does not drive (he does) and that they help each other out. Jorge Luis has no children. 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 He is independent with ADLs and self care and does not receive any community services. Jorge Luis was admitted with a bowel obstruction. He reported that he is feeling much better than when he was first admitted. He had a liquid breakfast and a regular diet for lunch which he tolerated well. His pain has been managed with IV Acetaminophen (Ofirmev) and he has not required any antiemetics today. Town of Residence: [place] Resides with: Other Significant Other/Family: [facility] Employment Status: Retired (tester/lift trucker) Instrumental Activities of Daily Living (ADLs): Independent Medications Medication Management: No Issues/Barriers identified Physical Functioning/Mobility Assistive Device: none Advance Directives Advance Directives: Do you have an Advance Directive: Y 02/11/22, 10:44 AD On File at [facility]: N 02/11/22, 10:44 Date Asked 06/13/25 12, 13:28 AD Date Reviewed COLST On File at [facility] COLST Date Scanned Code Status Resuscitation Status Full Code Portal Pt does not currently have a portal and education provided: Yes Insurance Coverage/Financial Issues Insurance: [employer] MCR Replacement Care Team Visit Care Team Role Provider Type Sheela Brar APRN MD [facility] STAFF PHYSICIAN Beto Velasquez MD Primary Care Provider NON-[facility] STA[facility] PHYSICIAN Bubba Emerson MD Other Providers [facility]YSIC[facility] Dell Izaguirre MD Emergency Provider [facility] ST[facility] PHYSICIAN Da Strickland MD Admit Provider [facility] PHYSICIAN Attending Provider Discharge Potential Discharge Needs: PCP F/U Appt Anticipated Barriers to Discharge: None Identified Patient/Family Education Needs: Review discharge instructions, discuss Ask Me Three Transportation: Private vehicle Plan: Anticipate Jorge Luis will be discharged home with no new services when medically stable. He will follow up with his community providers and plan of care and transport with family. CM will follow and continue to assess for discharge needs. Social Determinants of Health Screening Social Determinants of health last assessed in clinic: 06/13/25 Will the Patient Participate in the Screening?: Unable to obtain Do you worry about having a steady place to live?: no Problems where you live: no known problems In the past 12 months, have you had to go without electric, gas, oil or water in your home?: no Has lack of transportation kept you from medical appointments or from doing things needed for daily living?: no Has anyone in your life made you feel unsafe or unsupported?: no How hard is it for you to pay for the very basics like food, housing, medical care, and heating? Would you say it is:: Not hard at all Do you want help finding or keeping work or a job?: I do not need or want help If for any reason you need help with day-to-day activities such as bathing, preparing meals, shopping, managing finances, etc., do you get the help you need?: I don?t need any help How often do you feel lonely or isolated from those around you?: Never Do you speak a language other than Upper Sorbian at home?: No Does the patient want assistance with any of the above?: No PFSH All Active Problems (Updated 06/13/25 @ 17:46 by Sheela Brar APRN) Sepsis (Acute) Abdominal pain (Acute) Elevated lactic acid level (Acute) Leukocytosis (leucocytosis) (Acute) Nausea & vomiting (Acute) Small bowel obstruction (Acute) Comminuted fracture of right patella (Acute 12/16/21) s/p ORIF of right patella DOS: 12/18/21 Encounter for colonoscopy due to history of adenomatous colonic polyps (Acute) Medical History Adenomatous colon polyp Hyperlipidemia Hypertension Surgical History Appendectomy Colonoscopy - MAC (07/29/16) S/P balloon mitral valvuloplasty 2013 @ [facility] F/U with PCP anually Sigmoidoscopy (04/22/16) MAC, Attempted colonoscopy Social History Smoking/Tobacco Use Status: Former Tobacco Use Quit Date: 07/07/99 Smoking risk assessment performed?: Yes Alcohol Intake: current Alcohol Intake frequency: 0-2 drinks per day Alcohol type: beer and hard liquor Drug use: Never Substance use type: does not use Household members: spouse Housing: house current occupation: retired Current gender identity: male Do you feel safe at home: No (Does not feel safe living alone given current conditions) Additional Social history: lives alone
[2025-06-14] MEDS: ACETAMINOPHEN 1,000 MG/100 ML BAG 400 MG IVPB (09:32)
--- NOTE | 2025-06-14 14:29 | W.PM.DS.N ---
Date of service: 06/14/25 Time of Service: 14:29 DS: Diagnosis Discharge Diagnosis (1) Sepsis: Status: Acute (2) Small bowel obstruction: Status: Acute (3) Elevated lactic acid level: Status: Acute (4) Abdominal pain: Status: Acute (5) Leukocytosis (leucocytosis): Status: Acute (6) Nausea & vomiting: Status: Acute Discharge Plan Disposition Patient Disposition: Home Condition: Improving Discharge Details Reason For Visit: SBO Admit Date/Time: 06/13/25 15:47 Admit Provider: Da Strickland Attending Provider: Da Strickland Primary Care Provider: Beto Velasquez Hospital Course Hospital Course: This 79-year-old male patient with a PMHx of remote appendectomy, abdominal surgeries at [facility], cholecystectomy presented to the ED on 06/13/2025 for evaluation of RUQ abd pain developing after 2 episodes of emesis on the day of presentation. Blood work showed WBC at 13.88, ANC 12.[address] of the abdomen and pelvis with findings consistent with small-bowel obstruction with transition point in the midline of the low pelvis. As per surgical consultation recommendation to allow for clear liquids and to discharge if tolerated. The patient was admitted as per ED provider request to the medical surgical floor for further evaluation and management. Added Lactic at 2.6 and procalcitonic pending of in the setting of sepsis d/t gastroenteritis. IV fluid ordered. Procalcitonin at 1.34 in the setting of lactate at 2.6, oral antibiotics were initiated. Repeat lactate 1.2. The patient was able to tolerate oral intake, had a normal bowel movement today and his hemodynamically stable and will be discharged home and will need a follow-up with PCP within 7 days of discharge. Discussed with Dr. Strickland Recommendations for Follow Up Recommended tests to be ordered by follow up provider: Consider repeat abdominal imaging in 2- 4 weeks outpatient as per PCP Home Meds and New Rx's Prescriptions: New amoxicillin-pot clavulanate 875-125 mg Tablet 1 tab PO BID Qty: 13 0RF Bio-K plus 50 billion cell capsule,delayed release(DR/EC) 1 cap PO DAILY Qty: 14 0RF Rx Instructions: Take 3 hours apart from your antibiotics pantoprazole [Protonix] 40 mg tablet,delayed release (DR/EC) 40 mg PO DAILY Qty: 14 0RF Continued aspirin [Adult Aspirin Regimen] 81 mg tablet,delayed release (DR/EC) 81 mg PO DAILY atorvastatin 20 mg tablet 40 mg PO DAILY ibuprofen 600 mg tablet 600 mg PO TID PRN (Reason: pain) Qty: 60 0RF multivitamin Capsule 1 cap PO DAILY fluoxetine 10 mg capsule 10 mg PO DAILY Patient Comments: TAKE ONE CAPSULE BY MOUTH EVERY DAY Changed acetaminophen 500 mg tablet 1,000 mg PO TID PRNQty: 30 2RF Rx Instructions: # times daily -As needed for pain Discharge Instructions Stand Alone Forms: Portal Information, Nursing Discharge Form Referrals: Beto Velasquez MD [Primary Care Provider, Medicine] Referral Note: Follow-up with PCP within 7 days of discharge Activity:: Activity as Tolerated Equipment/Supplies:: No Equipment Needed Diet:: As Tolerated Discharge Orders Discharge Orders: Discharge Order (Routine); Ordered 06/14/25 Ordered By: Sheela Brar DS: Summary Time Spent with Patient providing and/or coordinating discharge services: Greater than 30 minutes Status at Discharge Functional status at discharge: independent ambulation Overall status at discharge: patient is progressing back to baseline Mental Status: mental status grossly normal Speech and Movement: speech and movement normal Mood: congruent mood Affect: normal affect Exam Narrative Exam Narrative: No acute distress, non-icteric sclera, A& O X3 , ognoing memory impairment, no neurological focal deficits, clear lungs unlabored breathing, S1 S2 regular, ABD non- distended, soft non-tender, no CVA tenderness moves all 4 ext. Psych Mental Status: mental status grossly normal Speech and Movement: speech and movement normal Mood: congruent mood Affect: normal affect DS: Data Vitals/I&O Vitals and I&O: Vital Signs Temperature 36.3 C L 06/14/25 07:16 Temperature Source Temporal Artery Scan 06/14/25 07:16 Pulse 85 06/14/25 07:16 Respiratory Rate 18 06/14/25 07:16 Respiratory Effort Normal 06/13/25 17:50 Respiratory Depth Normal 06/13/25 17:50 Respiratory Pattern Normal 06/13/25 17:50 Blood Pressure 151/85 H 06/14/25 07:16 Blood Pressure Mean 107 06/14/25 07:16 Pulse Oximetry 96 06/14/25 07:16 Oxygen Delivery Method Room Air 06/14/25 07:16 Oxygen Flow Rate 0 06/14/25 07:16 Pain Level 0 06/14/25 07:16 Intake & Output 06/13/25 06/14/25 06/14/25 23:59 11:59 23:59 Intake Total 186.667 / 186.667 518.333 / 518.333 Output Total 50 / 50 550 / 550 Balance 136.667 / 136.667 -31.667 / -31.667 Weight 67.8 kg Intake: IV 36.667 / 36.667 518.333 / 518.333 Oral 150 / 150 Output: Urine 550 / 550 Emesis 50 / 50 0 / 0 Other: Urine Color Yellow Urine Appearance Clear Clear Stool Size Large Large Stool Characteristics Liquid Brown Emesis Description Black None Data Completed and Pending Pending Labs at Discharge: 06/13/25 06/13/25 06/13/25 13:51 15:53 17:00 WBC 13.88 H RBC 5.02 Hgb 15.0 Hct 45.1 MCV 90 MCH 29.9 MCHC 33.3 RDW 12.9 Plt Count 194 MPV 9.5 Immature Gran % 1.2 Neutrophils % 89.4 Lymphocytes % 3.5 Monocytes % 5.5 Eosinophils % 0.0 Basophils % 0.4 Nucleated RBC % 0.0 Absolute Neutrophils 12.41 H Absolute Lymphocytes 0.49 L Absolute Monocytes 0.76 Absolute Eosinophils 0.00 Absolute Basophils 0.06 VBG Lactate 2.6 H* Sodium 140 Potassium 4.6 Chloride 103 Carbon Dioxide 29.1 Anion Gap 7.9 BUN 12 Creatinine 0.95 Est GFR (CKD-EPI 2020) 75.97 Glucose 180 H Calcium 9.1 Total Bilirubin 0.60 AST 19 ALT 9 L Alkaline Phosphatase 53 Total Protein 7.3 Albumin 4.0 Lipase 28 Procalcitonin 1.34 Add-On Test Request Cancelled 06/13/25 06/14/25 17:38 06:08 WBC RBC Hgb Hct MCV MCH MCHC RDW Plt Count MPV Immature Gran % Neutrophils % Lymphocytes % Monocytes % Eosinophils % Basophils % Nucleated RBC % Absolute Neutrophils Absolute Lymphocytes Absolute Monocytes Absolute Eosinophils Absolute Basophils VBG Lactate 1.2 Sodium Potassium Chloride Carbon Dioxide Anion Gap BUN Creatinine Est GFR (CKD-EPI 2020) Glucose Calcium Total Bilirubin AST ALT Alkaline Phosphatase Total Protein Albumin Lipase Procalcitonin Add-On Test Request DONE PFS All Active Problems (Updated 12/09/25 @ 14:46 by Sheela Brar APRN) Sepsis (Acute) Abdominal pain (Acute) Elevated lactic acid level (Acute) Leukocytosis (leucocytosis) (Acute) Nausea & vomiting (Acute) Small bowel obstruction (Acute) Comminuted fracture of right patella (Acute 12/16/21) s/p ORIF of right patella DOS: 12/18/21 Encounter for colonoscopy due to history of adenomatous colonic polyps (Acute) Medical History Adenomatous colon polyp Hyperlipidemia Hypertension Surgical History Appendectomy Colonoscopy - MAC (07/29/16) S/P balloon mitral valvuloplasty 2013 @ [facility] F/U with PCP anually Sigmoidoscopy (04/22/16) MAC, Attempted colonoscopy Social History Smoking/Tobacco Use Status: Former Tobacco Use Quit Date: 07/07/99 Smoking risk assessment performed?: Yes Alcohol Intake: current Alcohol Intake frequency: 0-2 drinks per day Alcohol type: beer and hard liquor Drug use: Never Substance use type: does not use Household members: spouse Housing: house current occupation: retired Current gender identity: male Do you feel safe at home: No (Does not feel safe living alone given current conditions) Additional Social history: lives alone Time Spent with Patient Time Spent with Patient: >85 minutes Time was spent: preparing to see the patient(eg.review tests), obtaining and/or reviewing separately otained hiistory, ordering medications,tests, procedures, referring, communicating with other health respite care provider, indepentently interpreting results, counseling the patient, care coordination and other
[2025-06-14 15:03] LABS: Abs Immature Grans 0.06 10^3/uL (0.0-0.06); HCT 40.2 % (40.0-50.0); HGB 13.0 g/dL (13.5-17.5); Immature Grans % 0.8 %; MCH 29.3 pg (27.0-33.0); MCHC 32.3 % (32.0-36.0); MCV 91 fL (80-95); MPV 9.2 fL (8.0-11.0); Platelet Count 181 10^3/uL (130-400); RBC 4.43 10^6/uL (4.36-5.78); RDW 13.0 % (11.8-14.1); RDW-SD 43.4 fL; WBC 7.81 10^3/uL (4.4-10.8)
[2025-06-14] MEDS: Enoxaparin 40 MG/0.4 ML SYR SC (15:07)
[2025-06-14] MEDS: Amoxicillin 875/Clav. 125 TAB PO (15:08)
[2025-06-14 15:18] LABS: Magnesium 2.0 mg/dL (1.6-2.6)
[2025-06-14 15:19] LABS: Anion Gap 7 mmol/L (3-11); BUN 18 mg/dL (9-23); CO2 30.0 mmol/L (20.0-31.0); Calcium 8.4 mg/dL (8.3-10.6); Chloride 104 mmol/L (98-107); Glucose 114 mg/dL (74-106); Potassium 4.0 mmol/L (3.5-5.1); Sodium 141 mmol/L (136-145)
--- NOTE | 2025-06-14 15:25 | PDOC.CMDIS ---
Date of service: 06/14/25 Time of Service: 15:25 LACE Index Scoring Tool Questions: Length of Stay (in days): 1 Was the patient admitted via the E.D.?: Yes E.D. Visits: 1 Answers: Total Score: 5 Risk of Readmission: Low Risk Care Management Discharge Plan Reason for Hospitalization: SBO Discharge Plan: Jorge Luis will be discharged home with no new services. He will follow up with his community providers and plan of care and transport with family. Patient/Family Education Needs: Review discharge instructions, limitations, follow up plan and discuss Ask Me Three
== END 2025-06-14 16:38 | disposition home or self-care (01) ==
LOC: ER 15:31 → EDHOLD 16:59 → MS 17:37
PROVIDERS: Admitting Provider Family Medicine; Emergency Provider Emergency Medicine; PCP Family Medicine; Responsible Provider Nurse Practitioner Acute Care; Visit Provider Family Medicine
DX: A41.9 Sepsis, unspecified organism (principal); K52.9 Noninfective gastroenteritis and colitis, unspecified; K56.699 Other intestinal obstruction unspecified as to partial versus complete obstruction; R11.2 Nausea with vomiting, unspecified; R10.9 Unspecified abdominal pain; D72.829 Elevated white blood cell count, unspecified; I10 Essential (primary) hypertension; E78.5 Hyperlipidemia, unspecified; E87.20 Acidosis, unspecified; Z79.899 Other long term (current) drug therapy
CPT/HCPCS: 00123; 36415; 80048; 80053; 83690; 84145; 96361; 96365; 96367; 96375; 99222; 99285; J1650; 74177; 83605; 83735; 85025; 99223; 99239; G0378; J0131; J0780; J2470; J3490